=== PATIENT | male | born 1945 | race Caucasian/White ===

== ENCOUNTER 2020-07-10 02:01 | Inpatient (IN) | payer MEDICARE ==
[~2020-07-10] VITALS: Ht 172.7 cm; Wt 93.2 kg
[2020-07-10] MEDS ORDERED: ALLO100T PO (02:31)
[2020-07-10] MEDS ORDERED: TAMS0.4C97 PO (02:31)
[2020-07-10] MEDS ORDERED: LISI10TA16 PO (02:31)
[2020-07-10] MEDS ORDERED: INSU100V8 SQ (02:31)
[2020-07-10] MEDS ORDERED: FERR325T14 PO (02:31)
[2020-07-10] MEDS ORDERED: GABA-585 PO (02:31)
[2020-07-10] MEDS ORDERED: LACT10SO26 PO (02:31)
[2020-07-10] MEDS ORDERED: BUDE0.5A11 NEB (02:31)
[2020-07-10] MEDS ORDERED: FORM20VI IH (02:31)
[2020-07-10] MEDS ORDERED: GLIM4TAB8 PO (02:31)
[2020-07-10] MEDS ORDERED: PANT40TA6 PO (02:31)
[2020-07-10] MEDS ORDERED: SUCR1TAB PO (02:31)
[2020-07-10] MEDS ORDERED: OLAN5TAB9 PO (02:31)
[2020-07-10] MEDS ORDERED: FINA5TAB4 PO (02:31)
[2020-07-10] MEDS ORDERED: TRAM50TA PO (02:31)
[2020-07-10] MEDS ORDERED: POLY2500 PO (02:31)
[2020-07-10] MEDS ORDERED: CHOL10004 PO (02:31)
[2020-07-10] MEDS ORDERED: METO25TA4 PO (02:31)
[2020-07-10] MEDS ORDERED: BIFI4CAP PO (02:31)
--- NOTE | 2020-07-10 14:50 | NUR ---
Admission Note with Justification for Admission to [facility] Patient admitted to [facility] for protective oversight for emergency stabilization of acute psychiatric crisis. Pt admitted from: Hospital Mode of arrival: EMS Accompanied By: Secure Transport Precipitating behaviors that initiated intake and admission: agitation and aggression Description of failure of out patient attempts at stabilization in previous setting list behavior and medication trials: Ativan haldol Behaviors and assessment findings upon admission: Restless, impulsive, resistive Plan: Admit for protective oversight for adjustment and stabilization of medications, behaviors and mood. Intense treatment regimen including groups, medication adjustments, therapy, consistent regimen for ADL's, self care, and sleep hygiene. Daily monitoring by Inpatient staff, Psychiatry, and Medical Physician.
[2020-07-10] MEDS ORDERED: INSU100V5 SQ (15:47)
[2020-07-10] MEDS ORDERED: ONDA4TAB12 PO (15:47)
[2020-07-10] MEDS ORDERED: DEXT50DI3 IV (15:47)
[2020-07-10] MEDS ORDERED: ABH TOP (15:47)
[2020-07-10] MEDS ORDERED: GLUC1KIT IM (15:47)
[2020-07-10] MEDS ORDERED: HALO5AMP2 IJ (15:47)
[2020-07-10] MEDS ORDERED: DEXT38GE2 PO (15:47)
[2020-07-10 15:57] VITALS: BP 137/74
[2020-07-10] MEDS ORDERED: METHYL SALICYLATE/MENTHOL TOPICAL OINTMENT 57GM TUBE. TP PRN (18:30)
[2020-07-10] MEDS ORDERED: DEXTROSE 50% 25 GM / 50ML DISP.SYRIN. IV PRN (18:30)
[2020-07-10] MEDS ORDERED: ONDANSETRON ODT 4 MG TAB.RAPDIS PO PRN (18:30)
[2020-07-10] MEDS ORDERED: ABH TOP PRN (18:30)
[2020-07-10] MEDS ORDERED: ACETAMINOPHEN 325 MG TABLET PO PRN (18:30)
[2020-07-10] MEDS ORDERED: NON FORMULARY ITEM (Glucagon,Human Recombinant (Glucagon Emergency Kit) 1 MG) IM PRN (18:30)
[2020-07-10] MEDS ORDERED: DEXTROSE ORAL GEL 15 GM TUBE. PO PRN (18:30)
[2020-07-10] MEDS ORDERED: MAG HYDROX/AL HYDROX/SIMETH 30 ML ORAL.SUSP PO PRN (18:30)
[2020-07-10] MEDS ORDERED: MAGNESIUM HYDROXIDE 2,400 MG/30 ML ORAL.SUSP. PO PRN (18:30)
[2020-07-10] MEDS ORDERED: INSULIN LISPRO 300 UNITS/3 ML VIAL. SQ PRN (18:45)
[2020-07-10] MEDS: SUCRALFATE 1 GM TABLET. PO SCH (20:37)
[2020-07-10] MEDS: GABAPENTIN 100 MG CAPSULE. PO SCH (20:37)
[2020-07-10] MEDS: OLANZapine 5 MG TABLET PO SCH (20:37)
[2020-07-10] MEDS: traMADol 50 MG TABLET PO SCH (20:37)
[2020-07-10] MEDS: LACTOBACILLUS RHAMNOSUS GG 1 CAPSULE. PO SCH (20:37)
[2020-07-10] MEDS: ALLOPURINOL 100 MG TABLET. PO SCH (20:37)
[2020-07-10] MEDS: TAMSULOSIN 0.4 MG CAP.ER.24H. PO SCH (20:37)
[2020-07-10] MEDS: LACTULOSE 20 GM/30 ML SOLUTION. PO SCH (20:47)
[2020-07-10] MEDS: [UNRECOGNIZED DRUG - OTHER] TP PRN (20:47)
[2020-07-10] MEDS: INSULIN GLARGINE SYRINGE. SQ SCH (21:00)
--- NOTE | 2020-07-10 23:27 | NUR ---
Pt located on the floor in the quiet room. Pt restless and fidgety, rambling and could not answer assessment questions. Highly resistive to crushed medications. Pt unable to bear weight. Staff x4 assisted pt to bed. Pt has hartmann that was placed prior to admit d/t retention. PRN ABH cream administered to upper back and shoulders. Pt currently sleeping in bed.
--- NOTE | 2020-07-11 04:27 | EKG ---
[address] [address] Test Date: 2020-07-11 Test Time: 02:16:12 Pat Name: CARMEN REILLY Department: Room: [address] [place] [address] Gender: M Radiographic Technologist: : 1945 Requested By: DIA CASAS Order Number: [id number] Reading MD: Measurements Intervals [place] Rate: 112 P: 11 [place]: 150 QRS: 16 QRSD: 94 T: 26 QT: 372 QTc: 510 Interpretive Statements SINUS TACHYCARDIA VENTRICULAR PREMATURE COMPLEX(ES), BIGEMINY ST & T ABNORMALITY, CONSIDER RECENT INFERIOR MYOCARDIAL OR PERICARDIAL DAMAGE ABNORMAL ECG RI6.02 No previous ECG available for comparison
[2020-07-11 06:04] VITALS: BP 101/66
[2020-07-11] MEDS: SUCRALFATE 1 GM TABLET. PO SCH ×4 (07:30→20:02)
[2020-07-11] MEDS: PANTOPRAZOLE 40 MG TABLET. PO SCH ×2 (08:00→17:03)
[2020-07-11] MEDS: FERROUS SULFATE 325 MG TABLET. PO SCH ×2 (08:00→17:04)
[2020-07-11] MEDS: GLIMEPIRIDE 2 MG TABLET PO SCH ×2 (08:00→17:04)
[2020-07-11] MEDS: LISINOPRIL 10 MG TABLET PO SCH (09:00)
[2020-07-11] MEDS: POLYETHYLENE GLYCOL 3350 17 GM PACKET. PO SCH (09:00)
[2020-07-11] MEDS: FINASTERIDE 5 MG TABLET. PO SCH (09:00)
[2020-07-11] MEDS: LACTOBACILLUS RHAMNOSUS GG 1 CAPSULE. PO SCH ×2 (09:00→20:02)
[2020-07-11] MEDS: OLANZapine 5 MG TABLET PO SCH ×2 (09:00→20:02)
[2020-07-11] MEDS: METOPROLOL TART IMMED RELEASE 25 MG TABLET. PO SCH (09:00)
[2020-07-11] MEDS: ALLOPURINOL 100 MG TABLET. PO SCH ×2 (09:00→20:03)
[2020-07-11] MEDS: CHOLECALCIFEROL (VITAMIN D3) 1,000 UNIT TABLET PO SCH (09:00)
[2020-07-11] MEDS: LACTULOSE 20 GM/30 ML SOLUTION. PO SCH ×3 (09:00→20:01)
[2020-07-11] MEDS: traMADol 50 MG TABLET PO SCH ×2 (09:00→20:02)
[2020-07-11] MEDS: GABAPENTIN 100 MG CAPSULE. PO SCH ×3 (09:00→20:03)
[2020-07-11 10:26] LABS: BASO % 1 % (0-3); EOS # 0.5 x10^3/uL (0.0-0.7); EOS % 8 % (0-3); HEMATOCRIT 35.1 % (39.0-53.0); LYMPH # 1.6 x10^3/uL (1.0-4.8); LYMPH % 24 % (24-48); MEAN CORPUSCULAR HEMOGLOBIN 33 pg (25-35); MEAN CORPUSCULAR HGB CONC 34 g/dL (31-37); MEAN CORPUSCULAR VOLUME 97 fL (79-100); MONO # 0.5 x10^3/uL (0.0-1.1); MONO % 7 % (0-9); NEUT % 61 % (31-73); PLATELET COUNT 75 x10^3/uL (140-400); RED BLOOD COUNT 3.62 x10^6/uL (4.30-5.70); RED CELL DISTRIBUTION WIDTH 15.4 % (11.5-14.5); WHITE BLOOD COUNT 6.5 x10^3/uL (4.0-11.0)
[2020-07-11 10:33] LABS: ALBUMIN 2.5 g/dL (3.4-5.0); ALBUMIN/GLOBULIN RATIO 0.6 (1.0-1.7); CALCIUM 9.1 mg/dL (8.5-10.1); CREATININE 1.4 mg/dL (0.7-1.3); GFR 49.3; MAGNESIUM 1.7 mg/dL (1.8-2.4); POTASSIUM 4.1 mmol/L (3.5-5.1); TOTAL BILIRUBIN 0.9 mg/dL (0.2-1.0); TOTAL PROTEIN 6.8 g/dL (6.4-8.2)
[2020-07-11 15:30] VITALS: BP 131/54
--- NOTE | 2020-07-11 18:02 | NUR ---
Patient med compliant and cooperative with cares, patient very disorganized and confused, patient alert x1 to self patient hartmann is intact and draining appropriately at this time, patient is able to be redirected. Patient was seen by speech who changed orders for dysphagia II honey thicken liquids and pills given one at a time or crushed in purreed or honey thicken. Patient slept during breakfast and was very sedated from the previous night due to prn's. I was not able to give patient any medications for am med pass and patient did not eat breakfast. For lunch he was very alert and ate his lunch and dinner. called several times wanting to know how he was doing gave the password and update was given. Waiting on patient labs, discussed patient prn insulin s/s with Dr Catherine no changes made. No new orders from Dr Lovett. Will continue to monitor patient.
[2020-07-11] MEDS: TAMSULOSIN 0.4 MG CAP.ER.24H. PO SCH (20:03)
[2020-07-11] MEDS: INSULIN GLARGINE SYRINGE. SQ SCH (20:04)
[2020-07-11 21:33] LABS: THYROID STIM HORMONE (TSH) 0.627 uIU/mL (0.358-3.740)
--- NOTE | 2020-07-11 22:40 | NUR ---
Pt located in the dayroom this evening. Pt more alert. Oriented to self, and hospital. Pt restless in wheelchair, setting off chair alarm numerous times. Compliant with crushed medications. No agitation or aggression.
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
[2020-07-12 02:11] LABS: HEMOGLOBIN A1C 6.9 % (4.8-5.6)
[2020-07-12 05:41] VITALS: BP 108/62
[2020-07-12 07:13] LABS: THYROXINE 4.7 ug/dL (4.5-12.0)
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
[2020-07-12] MEDS: POLYETHYLENE GLYCOL 3350 17 GM PACKET. PO SCH (08:52)
[2020-07-12] MEDS: LACTULOSE 20 GM/30 ML SOLUTION. PO SCH ×3 (08:52→19:56)
[2020-07-12] MEDS: SUCRALFATE 1 GM TABLET. PO SCH ×4 (08:52→19:56)
[2020-07-12] MEDS: FINASTERIDE 5 MG TABLET. PO SCH (08:52)
[2020-07-12] MEDS: GLIMEPIRIDE 2 MG TABLET PO SCH ×2 (08:53→16:30)
[2020-07-12] MEDS: LACTOBACILLUS RHAMNOSUS GG 1 CAPSULE. PO SCH ×2 (08:53→19:56)
[2020-07-12] MEDS: FERROUS SULFATE 325 MG TABLET. PO SCH ×2 (08:53→16:30)
[2020-07-12] MEDS: GABAPENTIN 100 MG CAPSULE. PO SCH ×3 (08:53→19:56)
[2020-07-12] MEDS: PANTOPRAZOLE 40 MG TABLET. PO SCH ×2 (08:53→16:30)
[2020-07-12] MEDS: ALLOPURINOL 100 MG TABLET. PO SCH ×2 (08:53→19:56)
[2020-07-12] MEDS: CHOLECALCIFEROL (VITAMIN D3) 1,000 UNIT TABLET PO SCH (08:53)
[2020-07-12] MEDS: METOPROLOL TART IMMED RELEASE 25 MG TABLET. PO SCH (08:53)
[2020-07-12] MEDS: OLANZapine 5 MG TABLET PO SCH ×2 (08:53→19:56)
[2020-07-12] MEDS: LISINOPRIL 10 MG TABLET PO SCH (08:54)
[2020-07-12] MEDS: traMADol 50 MG TABLET PO SCH ×2 (08:54→19:56)
--- NOTE | 2020-07-12 13:06 | NUR ---
SW attempted to contact pt and was not able to leave a message. SW will try back at a later time.
--- NOTE | 2020-07-12 13:40 | NUR ---
WEEKLY ACTIVITY THERAPY NOTE Date of Admission: 07/10/20 Date of AT Assessment: TBD Precipitating behaviors that initiated intake and admission: agitation and aggression Goal aimed: TBD Initial Goal: TBD Weekly progress towards goal: NA Group participation level:NA Weekly highlights: arrived on [facility] Behaviors observed: Plan: meet/assess pt Beneficial adaptations:
--- NOTE | 2020-07-12 14:08 | NUR ---
PATIENT IS AWAKE UP IN A W/C UPON ASSESSMENT, CONFUSED, A/O TO SELF ONLY, COOPERATIVE WITH ASSESSMENT, COMPLIANT WITH MEDS CRUSHED IN PUDDING. PATIENT IS CURRENTLY IN A BED NAPPING, NO AGITATION NOTED AT THIS TIME.
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
[2020-07-12 15:45] VITALS: BP 117/68
--- NOTE | 2020-07-12 16:54 | TX PLAN ---
Interdisciplinary Tx Plan Admission Information July 10, 2020 at 14:50 Legal Status (on Admission): Voluntary DPOA/Guardian Name: Tiffanie Joyner Contact Other Contact Name: [facility] Other Contact Verified Code Status: Other (Full Code/Do Not Intubate) Allergies: Coded Allergies: selegiline (Verified Allergy, Intermediate, 07/10/20) HALLUCINATIONS Diagnoses Primary Diagnosis: Major Neurocognitive D/O with BD Reasons for Admission: Aggressive, Agitated, Combative, Confusion/Disoriented, Poor impulse control Problem in Patient's Words: This disease...it's just not him Additional Admission Comments: According to the intake, pt is combative, hitting , agitated, irritable, psychotic, cursing, punching at the wall, kicking at staff, restless, agitated Problems Active Problems: No active behaviors noted upon admission Inactive Problems: No behaviors noted Medication compliant Pt Strengths/Limitations Ability for [place]: Poor Cognitive Functioning/Ability: Fair Communication Skills/Ability: Fair Financial Resources: Fair Insight/Judgement: Poor Intellectual Ability: Fair Physical Health: Poor Social Skills: Fair Stability in Family: Good Stability in School/Work: Poor Verbal Skills: Fair Discharge Criteria Discharge Criteria: No need for close observ., Adequate arrangements @DC, Improved behavior, Improved mood/thought Preliminary Discharge Plan Preliminary DC Plan: Retirement Special Precautions Fall Risk: Moderate Other Precautions (specify): use of wheelchair due to unsteadiness and work with PT/OT Initial D/C Plan Will discharge to [facility] in [place], [place] once stabilized Identified Discharge Needs: referral for continued psychiatric services Currently Utilized Resources Currently Utilized Resources/P: Primary Care Physician Referrals Community Resources: Psychiatry services Identified Problems/Hx/Goals Objectives/Short-Term Goals Short Term Goals: Dec. Aggression, Dec. Outbursts, Improved Social Skills, Medication Stabilization, Monitor Med Effects, Promote Coping Skill Short Term Goals in Patient's: NA Interventions/Frequency Staff Interventions/Frequency&: Psychiatrist to assess pt at least 3x per week for medication mgmt. Social Work to assess pt at least 2x per week to identify barriers to care and final discharge plans. Nursing to assess medication effects, behavior modifications and completion of 15 minute checks. Encourage participation in group activities (if applicable) or 1:1 engagement based off Activity Dept goals. 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 Pt also tried his hand at having his own [employer] in which he was a 3x award-winner through the local [employer] for his work. Education: Pt did graduate 12th grade Community Follow-up Primary Care Physician Community Provider/Family Inpu: It's the disease making him this way. He would never hurt anyone and as of late he continues to be aggressive and it's just not him. Treatment Plan Explained Patient/Examination Scorer had this treatment plan explained to him/her as indicated by the signature below and has been given the opportunity to ask questions and make suggestions: Date: Patient/Examination Scorer Signature: Patient/Examination Scorer Decline: No (Pt is very active in pt care.) TIARA RITCHIE July 12, 2020 16:54
[2020-07-12] MEDS: TAMSULOSIN 0.4 MG CAP.ER.24H. PO SCH (19:56)
[2020-07-12] MEDS: INSULIN GLARGINE SYRINGE. SQ SCH (20:56)
--- NOTE | 2020-07-12 22:05 | PDOC ---
Exam Note: Harshil Note: Please also refer to the separate dictated note~for this date of service dictated separately.~Patient seen individually. Discussed the patient with Nursing staff reviewed the chart.~Reviewed interim history and current functioning. Reviewed vital signs,~Labs/ Radiology~and current medications noted below. Continue current treatment with the changes noted in the dictated addendum note Assessment: Vital Signs/I&O: Vital Signs Date Time Temp Pulse Resp B/P (MAP) Pulse Ox O2 Delivery O2 Flow Rate FiO2 07/12/20 20:38 97 07/12/20 15:45 98.6 80 18 117/68 (84) 07/12/20 09:10 Room Air I & O 07/11/20 07/11/20 07/12/20 15:00 23:00 07:00 Intake Total 480 ml 360 ml Output Total 250 ml Balance 480 ml 110 ml Labs: Laboratory Tests Test 07/12/20 06:47 07/12/20 07:48 07/12/20 11:54 07/12/20 16:43 Ammonia 89 mcmol/L (11-34) H Glucose (Fingerstick) 95 mg/dL (70-99) 245 mg/dL (70-99) H 247 mg/dL (70-99) H Test 07/12/20 19:14 Glucose (Fingerstick) 296 mg/dL (70-99) H Current Medications: Meds: Laboratory Tests Test 07/12/20 06:47 07/12/20 07:48 07/12/20 11:54 07/12/20 16:43 Ammonia 89 mcmol/L Glucose (Fingerstick) 95 mg/dL 245 mg/dL 247 mg/dL Test 07/12/20 19:14 Glucose (Fingerstick) 296 mg/dL Current Medications Medications (Trade) Dose Ordered Sig/Michell Route PRN Reason Start Time Stop Time Status Last Admin Dose Admin Non-Formulary Medication (Non Formulary Item (Ehhoz-Yakrsq-Zpzzd)) 1 ea PRN Q6HRS PRN TP AGITATION 07/10/20 17:15 07/10/20 20:47 Acetaminophen (Tylenol) 650 mg PRN Q6HRS PRN PO MILD PAIN / TEMP > 100.3'F 07/10/20 18:30 Multi-Ingredient Ointment (Analgesic [place]) 1 loyd PRN QID PRN TP MUSCLE PAIN 07/10/20 18:30 Al Hydroxide/Mg Hydroxide (Mylanta Plus Xs) 15 ml PRN AFTMEALHC PRN PO DYSPEPSIA 07/10/20 18:30 Magnesium Hydroxide (Milk Of Magnesia) 2,400 mg PRN QHS PRN PO CONSTIPATION 07/10/20 18:30 Allopurinol (Zyloprim) 100 mg BID PO 07/10/20 21:00 07/12/20 19:56 Vitamin D (Vitamin D3) 1,000 unit DAILY PO 07/11/20 09:00 07/12/20 08:53 Glucose (Insta-Glucose) 15 gm PRN Q15MIN PRN PO HYPOGLYCEMIA 07/10/20 18:30 Dextrose (Dextrose 50%-Water Syringe) 25 gm PRN Q15MIN PRN IV HYPOGLYCEMIA 07/10/20 18:30 Ferrous Sulfate (Feosol) 325 mg BIDWMEALS PO 07/11/20 08:00 07/12/20 16:30 Finasteride (Proscar) 5 mg DAILY PO 07/11/20 09:00 07/12/20 08:52 Gabapentin (Neurontin) 100 mg TID PO 07/10/20 21:00 07/12/20 19:56 Insulin Glargine (Lantus Syringe) 30 unit HS SQ 07/10/20 21:00 07/12/20 20:56 Insulin Human Lispro (HumaLOG) 5 units TIDWMEALS PRN SQ FSBS GREATER THAN 400 07/10/20 18:45 Lisinopril (Prinivil) 10 mg DAILY PO 07/11/20 09:00 07/12/20 08:54 Metoprolol Tartrate (Lopressor) 25 mg DAILY PO 07/11/20 09:00 07/12/20 08:53 Olanzapine (ZyPREXA) 5 mg BID PO 07/10/20 21:00 07/12/20 19:56 Ondansetron HCl (Zofran Odt) 4 mg PRN Q8HRS PRN PO NAUSEA 07/10/20 18:30 Pantoprazole Sodium (Protonix) 40 mg BIDWMEALS PO 07/11/20 08:00 07/12/20 16:30 Sucralfate (Carafate) 1 gm QIDACHS PO 07/10/20 21:00 07/12/20 19:56 Tamsulosin HCl (Flomax) 0.4 mg HS PO 07/10/20 21:00 07/12/20 19:56 Tramadol HCl (Ultram) 50 mg BID PO 07/10/20 21:00 07/12/20 19:56 Lactobacillus Rhamnosus (Culturelle) 1 cap BID PO 07/10/20 21:00 07/12/20 19:56 Glimepiride (Amaryl) 4 mg BIDWMEALS PO 07/11/20 08:00 07/12/20 16:30 Non-Formulary Medication (Glucagon,Human Recombinant (Glucagon Emergency Kit)) 1 mg PRN PRN IM HYPOGLYCEMIA 07/10/20 18:30 UNV Lactulose (Lactulose) 20 gm TID PO 07/10/20 21:00 07/12/20 19:56 Polyethylene Glycol (miraLAX) 17 gm DAILY PO 07/11/20 09:00 07/12/20 08:52 Non-Formulary Medication ([Abh Topical Cream] ) 0.5 ml Q6HRS PRN TOP AGITATION 07/10/20 18:30 07/11/20 07:18 DC I have reviewed the current psychotropics carefully including drug interactions. Risk benefit ratio favors no change other than as noted in my dictated progress note. Diagnosis: Problems: (1) Major neurocognitive disorder (2) Dementia in Alzheimer's disease with delusions (3) Dementia in Alzheimer's disease with depression (4) Dementia of the Alzheimer's type with early onset with behavioral disturbance (5) Dementia, vascular, with delusions (6) Dementia, vascular, with depression (7) Impulse control disorder, unspecified (8) Anxiety disorder, unspecified ASIM SPANGLER MD July 12, 2020 22:05
[2020-07-12] MEDS: [UNRECOGNIZED DRUG - OTHER] TP PRN (22:22)
--- NOTE | 2020-07-12 23:10 | NUR ---
Pt in dayroom this evening. Restless in wheelchair setting off alarm repeatedly. Compliant with crushed medications. A/O to name, , [facility]. Pt highly restless once placed in bed, disrobing and attempting to climb out of bed. PRN ABH cream administered. Pt currently still awake in bed and restless. Addendum: 07/13/20 at 0431 by JES MOSES RN PRN cream not effective. Pt continued to attempt to climb out of bed, setting off bed alarm and keeping roommate awake. Pt taken to the quiet room and placed on mats for safety. Pt restless on the floor all night, dozing on/off for approximately an hour.
[2020-07-13 05:47] VITALS: BP 168/66
[2020-07-13] MEDS: POLYETHYLENE GLYCOL 3350 17 GM PACKET. PO SCH (08:22)
[2020-07-13] MEDS: FERROUS SULFATE 325 MG TABLET. PO SCH ×2 (08:23→18:09)
[2020-07-13] MEDS: PANTOPRAZOLE 40 MG TABLET. PO SCH ×2 (08:23→18:10)
[2020-07-13] MEDS: LACTOBACILLUS RHAMNOSUS GG 1 CAPSULE. PO SCH ×2 (08:23→19:50)
[2020-07-13] MEDS: LACTULOSE 20 GM/30 ML SOLUTION. PO SCH ×3 (08:23→19:50)
[2020-07-13] MEDS: CHOLECALCIFEROL (VITAMIN D3) 1,000 UNIT TABLET PO SCH (08:23)
[2020-07-13] MEDS: GLIMEPIRIDE 2 MG TABLET PO SCH ×2 (08:24→18:09)
[2020-07-13] MEDS: SUCRALFATE 1 GM TABLET. PO SCH ×4 (08:24→19:50)
[2020-07-13] MEDS: GABAPENTIN 100 MG CAPSULE. PO SCH ×3 (08:24→19:50)
[2020-07-13] MEDS: ALLOPURINOL 100 MG TABLET. PO SCH ×2 (08:24→19:50)
[2020-07-13] MEDS: OLANZapine 5 MG TABLET PO SCH ×2 (08:24→19:50)
[2020-07-13] MEDS: FINASTERIDE 5 MG TABLET. PO SCH (08:24)
[2020-07-13] MEDS: METOPROLOL TART IMMED RELEASE 25 MG TABLET. PO SCH (08:25)
[2020-07-13] MEDS: traMADol 50 MG TABLET PO SCH ×2 (08:25→19:51)
[2020-07-13] MEDS: LISINOPRIL 10 MG TABLET PO SCH (08:25)
--- NOTE | 2020-07-13 14:20 | NUR ---
ACTIVITY THERAPY ASSESSMENT completed based on notes and observation. Per notes pt has been restless and resistive with staff. Pt is unable to answer questions and talks in a rambled speech. Pt does appear to be more oriented some days than others. Pt enjoyed woodworking and landscaping. Pt lives at home with his and is reported to be resistive with her. Pt hit while at home. Initial goal aimed to increase stress management and relaxation skills. Pt will participate in at least three individual or group Activity Therapy sessions before discharge.
[2020-07-13 15:46] VITALS: BP 109/62
--- NOTE | 2020-07-13 17:04 | NUR ---
Pt was very disorganized with his conversation as well as body language multiple attempts to get out of wheel chair at breakfast picking through his breakfast after several failed attempts at verbally redirecting patient a staff member sat with patient during breakfast for more supervision. Patient took all of his meds without difficulty cooperative with cares. 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 Patient did not receive any of his noon meds vitals stable wnl of baseline. Alert to self, patient in dining room for dinner, new med orders from Dr Padilla: Remeron 7.5mg PO Qhs depakote 125mg PO BID 0900 and 1700 cbc cmp vpa level in 3 days. called twice to check on patient password given gave update on patient status. Will continue to monitor patient.
[2020-07-13] MEDS: TAMSULOSIN 0.4 MG CAP.ER.24H. PO SCH (19:50)
[2020-07-13] MEDS: INSULIN GLARGINE SYRINGE. SQ SCH (21:00)
[2020-07-13] MEDS ORDERED: MIRTAZAPINE 7.5 MG TABLET. PO SCH (21:00)
[2020-07-13] MEDS: [UNRECOGNIZED DRUG - OTHER] TP PRN (21:13)
--- NOTE | 2020-07-13 21:47 | PDOC ---
Exam Note: Harshil Note: Please also refer to the separate dictated note~for this date of service dictated separately.~Patient seen individually. Discussed the patient with Nursing staff reviewed the chart.~Reviewed interim history and current functioning. Reviewed vital signs,~Labs/ Radiology~and current medications noted below. Continue current treatment with the changes noted in the dictated addendum note Assessment: Vital Signs/I&O: Vital Signs Date Time Temp Pulse Resp B/P (MAP) Pulse Ox O2 Delivery O2 Flow Rate FiO2 07/13/20 20:29 95 07/13/20 15:46 97.9 85 20 109/62 (78) 07/12/20 09:10 Room Air I & O 07/12/20 07/12/20 07/13/20 14:59 22:59 06:59 Intake Total 840 ml 480 ml Balance 840 ml 480 ml Labs: Laboratory Tests Test 07/13/20 07:13 07/13/20 07:33 07/13/20 11:39 07/13/20 17:07 Glucose (Fingerstick) 286 mg/dL (70-99) H 100 mg/dL (70-99) H 300 mg/dL (70-99) H 170 mg/dL (70-99) H Test 07/13/20 18:59 Glucose (Fingerstick) 145 mg/dL (70-99) H Current Medications: Meds: Laboratory Tests Test 07/13/20 07:13 07/13/20 07:33 07/13/20 11:39 07/13/20 17:07 Glucose (Fingerstick) 286 mg/dL 100 mg/dL 300 mg/dL 170 mg/dL Test 07/13/20 18:59 Glucose (Fingerstick) 145 mg/dL Current Medications Medications (Trade) Dose Ordered Sig/Michell Route PRN Reason Start Time Stop Time Status Last Admin Dose Admin Non-Formulary Medication (Non Formulary Item (Rkhxc-Dnyvlw-Dwsmx)) 1 ea PRN Q6HRS PRN TP AGITATION 07/10/20 17:15 07/13/20 21:13 Acetaminophen (Tylenol) 650 mg PRN Q6HRS PRN PO MILD PAIN / TEMP > 100.3'F 07/10/20 18:30 Multi-Ingredient Ointment (Analgesic [place]) 1 loyd PRN QID PRN TP MUSCLE PAIN 07/10/20 18:30 Al Hydroxide/Mg Hydroxide (Mylanta Plus Xs) 15 ml PRN AFTMEALHC PRN PO DYSPEPSIA 07/10/20 18:30 Magnesium Hydroxide (Milk Of Magnesia) 2,400 mg PRN QHS PRN PO CONSTIPATION 07/10/20 18:30 Allopurinol (Zyloprim) 100 mg BID PO 07/10/20 21:00 07/13/20 19:50 Vitamin D (Vitamin D3) 1,000 unit DAILY PO 07/11/20 09:00 07/13/20 08:23 Glucose (Insta-Glucose) 15 gm PRN Q15MIN PRN PO HYPOGLYCEMIA 07/10/20 18:30 Dextrose (Dextrose 50%-Water Syringe) 25 gm PRN Q15MIN PRN IV HYPOGLYCEMIA 07/10/20 18:30 Ferrous Sulfate (Feosol) 325 mg BIDWMEALS PO 07/11/20 08:00 07/13/20 18:09 Finasteride (Proscar) 5 mg DAILY PO 07/11/20 09:00 07/13/20 08:24 Gabapentin (Neurontin) 100 mg TID PO 07/10/20 21:00 07/13/20 19:50 Insulin Glargine (Lantus Syringe) 30 unit HS SQ 07/10/20 21:00 07/13/20 21:00 Insulin Human Lispro (HumaLOG) 5 units TIDWMEALS PRN SQ FSBS GREATER THAN 400 07/10/20 18:45 Lisinopril (Prinivil) 10 mg DAILY PO 07/11/20 09:00 07/13/20 08:25 Metoprolol Tartrate (Lopressor) 25 mg DAILY PO 07/11/20 09:00 07/13/20 08:25 Olanzapine (ZyPREXA) 5 mg BID PO 07/10/20 21:00 07/13/20 19:50 Ondansetron HCl (Zofran Odt) 4 mg PRN Q8HRS PRN PO NAUSEA 07/10/20 18:30 Pantoprazole Sodium (Protonix) 40 mg BIDWMEALS PO 07/11/20 08:00 07/13/20 18:10 Sucralfate (Carafate) 1 gm QIDACHS PO 07/10/20 21:00 07/13/20 19:50 Tamsulosin HCl (Flomax) 0.4 mg HS PO 07/10/20 21:00 07/13/20 19:50 Tramadol HCl (Ultram) 50 mg BID PO 07/10/20 21:00 07/13/20 19:51 Lactobacillus Rhamnosus (Culturelle) 1 cap BID PO 07/10/20 21:00 07/13/20 19:50 Glimepiride (Amaryl) 4 mg BIDWMEALS PO 07/11/20 08:00 07/13/20 18:09 Non-Formulary Medication (Glucagon,Human Recombinant (Glucagon Emergency Kit)) 1 mg PRN PRN IM HYPOGLYCEMIA 07/10/20 18:30 UNV Lactulose (Lactulose) 20 gm TID PO 07/10/20 21:00 07/13/20 19:50 Polyethylene Glycol (miraLAX) 17 gm DAILY PO 07/11/20 09:00 07/13/20 08:22 Non-Formulary Medication ([Abh Topical Cream] ) 0.5 ml Q6HRS PRN TOP AGITATION 07/10/20 18:30 07/11/20 07:18 DC Mirtazapine (Remeron) 7.5 mg QHS PO 07/13/20 21:00 07/13/20 19:50 Divalproex Sodium (Depakote Sprinkles) 125 mg BID@0900,1700 PO 07/14/20 09:00 Trazodone HCl (Desyrel) 50 mg PRN QHS PRN PO INSOMNIA 07/13/20 21:45 UNV Current Medications Medications (Trade) Dose Ordered Sig/Michell Route PRN Reason Start Time Stop Time Status Last Admin Dose Admin Mirtazapine (Remeron) 7.5 mg QHS PO 07/13/20 21:00 07/13/20 19:50 I have reviewed the current psychotropics carefully including drug interactions. Risk benefit ratio favors no change other than as noted in my dictated progress note. Diagnosis: Problems: (1) Impulse control disorder, unspecified (2) Anxiety disorder, unspecified (3) Dementia, vascular, with depression (4) Dementia, vascular, with delusions (5) Dementia in Alzheimer's disease with depression (6) Dementia in Alzheimer's disease with delusions (7) Dementia of the Alzheimer's type with early onset with behavioral disturbance (8) Major neurocognitive disorder ASIM SPANGLER MD July 13, 2020 21:47
[2020-07-13] MEDS: traZODone 50 MG TABLET. PO PRN (21:56)
--- NOTE | 2020-07-13 23:11 | NUR ---
Pt located in the dayroom this evening. Pt extremely restless in his wheelchair repeatedly setting off chair alarm. Staff 1:1 with pt throughout the evening for pt safety. Pt compliant with crushed medications. Pt continued to be restless. At one point, pt grabbed staff member's arm and stated "shut the fuck up." Dr. Vignesh miller. PRN ABH cream and Trazodone administered. Pt currently awake in the quiet room rolling around on the mats. Will continue to monitor.
[2020-07-14 05:35] VITALS: BP 139/83
[2020-07-14] MEDS: LACTOBACILLUS RHAMNOSUS GG 1 CAPSULE. PO SCH ×2 (08:34→20:54)
[2020-07-14] MEDS: GLIMEPIRIDE 2 MG TABLET PO SCH ×2 (08:34→17:00)
--- NOTE | 2020-07-14 08:34 | PDOC ---
Exam Note: Harshil Note: This note is a late entry for 07/12/2020 covers elements not covered in my initial note. Subjective: The patient was reviewed in the morning of 07/12/2020 for a treatment team meeting with Danyell Cabral, Yael Sommers and Nuria (social services aide), Amy, activity therapy and Eden GLOVER, discussed and reviewed the chart. The patient slept 5-1/2 hours previous night. The patient has not been agitated. He remains in wheelchair, somewhat restless, grabbing at things, no p.r.n.s. have been given. Previously he was living in [place] at home with his , unable to return there due to his marked dementia. Review of Systems: Ambulation impaired in wheelchair. No CV, , pulmonary, eye, ENT system symptoms on review. Reliability poor. Mental Status Exam: The patient is oriented to himself. Insight and judgment, recent and remote memory, attention and concentration, fund of knowledge is poor consistent with his diagnoses. Laboratory Data: Reviewed. Impression: Major neurocognitive disorder Alzheimer vascular with delusion, depression, behavioral disturbance. Anxiety disorder unspecified. Impulse control disorder unspecified. Plan: I have carefully reviewed the patients current psychotropics and reviewed information with Dr. Barbosa who had covered for me for the past 2 weeks. Continue psychotropics from initial note. Make further adjustments as clinically indicated. Continue Zyprexa 5 mg b.i.d., Ativan, Benadryl, Haldol gel p.r.n. Consider adding SSRI agent for his mood and anxiety symptoms. We may consider Depakote Sprinkle as a mood stabilizer. Make further decisions post-baseline assessment. Assessment: Vital Signs/I&O: Vital Signs Date Time Temp Pulse Resp B/P (MAP) Pulse Ox O2 Delivery O2 Flow Rate FiO2 07/14/20 05:35 96.7 73 20 139/83 (101) 96 Room Air I & O 07/13/20 07/13/20 07/14/20 15:00 23:00 07:00 Intake Total 360 ml 360 ml Output Total 500 ml 500 ml Balance 360 ml -140 ml -500 ml Labs: Laboratory Tests Test 07/13/20 11:39 07/13/20 17:07 07/13/20 18:59 07/14/20 07:59 Glucose (Fingerstick) 300 mg/dL (70-99) H 170 mg/dL (70-99) H 145 mg/dL (70-99) H 140 mg/dL (70-99) H Current Medications: Meds: Laboratory Tests Test 07/13/20 11:39 07/13/20 17:07 07/13/20 18:59 07/14/20 07:59 Glucose (Fingerstick) 300 mg/dL 170 mg/dL 145 mg/dL 140 mg/dL Current Medications Medications (Trade) Dose Ordered Sig/Michell Route PRN Reason Start Time Stop Time Status Last Admin Dose Admin Non-Formulary Medication (Non Formulary Item (Sgmxc-Tgevan-Bpsra)) 1 ea PRN Q6HRS PRN TP AGITATION 07/10/20 17:15 07/13/20 21:13 Acetaminophen (Tylenol) 650 mg PRN Q6HRS PRN PO MILD PAIN / TEMP > 100.3'F 07/10/20 18:30 Multi-Ingredient Ointment (Analgesic [place]) 1 loyd PRN QID PRN TP MUSCLE PAIN 07/10/20 18:30 Al Hydroxide/Mg Hydroxide (Mylanta Plus Xs) 15 ml PRN AFTMEALHC PRN PO DYSPEPSIA 07/10/20 18:30 Magnesium Hydroxide (Milk Of Magnesia) 2,400 mg PRN QHS PRN PO CONSTIPATION 07/10/20 18:30 Allopurinol (Zyloprim) 100 mg BID PO 07/10/20 21:00 07/13/20 19:50 Vitamin D (Vitamin D3) 1,000 unit DAILY PO 07/11/20 09:00 07/13/20 08:23 Glucose (Insta-Glucose) 15 gm PRN Q15MIN PRN PO HYPOGLYCEMIA 07/10/20 18:30 Dextrose (Dextrose 50%-Water Syringe) 25 gm PRN Q15MIN PRN IV HYPOGLYCEMIA 07/10/20 18:30 Ferrous Sulfate (Feosol) 325 mg BIDWMEALS PO 07/11/20 08:00 07/13/20 18:09 Finasteride (Proscar) 5 mg DAILY PO 07/11/20 09:00 07/13/20 08:24 Gabapentin (Neurontin) 100 mg TID PO 07/10/20 21:00 07/13/20 19:50 Insulin Glargine (Lantus Syringe) 30 unit HS SQ 07/10/20 21:00 07/13/20 21:00 Insulin Human Lispro (HumaLOG) 5 units TIDWMEALS PRN SQ FSBS GREATER THAN 400 07/10/20 18:45 Lisinopril (Prinivil) 10 mg DAILY PO 07/11/20 09:00 07/13/20 08:25 Metoprolol Tartrate (Lopressor) 25 mg DAILY PO 07/11/20 09:00 07/13/20 08:25 Olanzapine (ZyPREXA) 5 mg BID PO 07/10/20 21:00 07/13/20 19:50 Ondansetron HCl (Zofran Odt) 4 mg PRN Q8HRS PRN PO NAUSEA 07/10/20 18:30 Pantoprazole Sodium (Protonix) 40 mg BIDWMEALS PO 07/11/20 08:00 07/13/20 18:10 Sucralfate (Carafate) 1 gm QIDACHS PO 07/10/20 21:00 07/13/20 19:50 Tamsulosin HCl (Flomax) 0.4 mg HS PO 07/10/20 21:00 07/13/20 19:50 Tramadol HCl (Ultram) 50 mg BID PO 07/10/20 21:00 07/13/20 19:51 Lactobacillus Rhamnosus (Culturelle) 1 cap BID PO 07/10/20 21:00 07/13/20 19:50 Glimepiride (Amaryl) 4 mg BIDWMEALS PO 07/11/20 08:00 07/13/20 18:09 Non-Formulary Medication (Glucagon,Human Recombinant (Glucagon Emergency Kit)) 1 mg PRN PRN IM HYPOGLYCEMIA 07/10/20 18:30 UNV Lactulose (Lactulose) 20 gm TID PO 07/10/20 21:00 07/13/20 19:50 Polyethylene Glycol (miraLAX) 17 gm DAILY PO 07/11/20 09:00 07/13/20 08:22 Non-Formulary Medication ([Abh Topical Cream] ) 0.5 ml Q6HRS PRN TOP AGITATION 07/10/20 18:30 07/11/20 07:18 DC Mirtazapine (Remeron) 7.5 mg QHS PO 07/13/20 21:00 07/13/20 19:50 Divalproex Sodium (Depakote Sprinkles) 125 mg BID@0900,1700 PO 07/14/20 09:00 Trazodone HCl (Desyrel) 50 mg PRN QHS PRN PO INSOMNIA 07/13/20 21:45 07/13/20 21:56 Current Medications Medications (Trade) Dose Ordered Sig/Michell Route PRN Reason Start Time Stop Time Status Last Admin Dose Admin Mirtazapine (Remeron) 7.5 mg QHS PO 07/13/20 21:00 07/13/20 19:50 Trazodone HCl (Desyrel) 50 mg PRN QHS PRN PO INSOMNIA 07/13/20 21:45 07/13/20 21:56 I have reviewed the current psychotropics carefully including drug interactions. Risk benefit ratio favors no change other than as noted in my dictated progress note. Diagnosis: Problems: (1) Impulse control disorder, unspecified (2) Anxiety disorder, unspecified (3) Dementia, vascular, with depression (4) Dementia, vascular, with delusions (5) Dementia in Alzheimer's disease with depression (6) Dementia in Alzheimer's disease with delusions (7) Dementia of the Alzheimer's type with early onset with behavioral disturbance (8) Major neurocognitive disorder ASIM SPANGLER MD July 14, 2020 08:34
[2020-07-14] MEDS: FINASTERIDE 5 MG TABLET. PO SCH (08:35)
[2020-07-14] MEDS: OLANZapine 5 MG TABLET PO SCH ×2 (08:35→20:55)
[2020-07-14] MEDS: LISINOPRIL 10 MG TABLET PO SCH (08:35)
[2020-07-14] MEDS: ALLOPURINOL 100 MG TABLET. PO SCH ×2 (08:35→20:55)
[2020-07-14] MEDS: CHOLECALCIFEROL (VITAMIN D3) 1,000 UNIT TABLET PO SCH (08:35)
[2020-07-14] MEDS: SUCRALFATE 1 GM TABLET. PO SCH ×4 (08:35→20:56)
[2020-07-14] MEDS: METOPROLOL TART IMMED RELEASE 25 MG TABLET. PO SCH (08:35)
[2020-07-14] MEDS: GABAPENTIN 100 MG CAPSULE. PO SCH ×3 (08:35→20:55)
[2020-07-14] MEDS: DIVALPROEX 125 MG CAP.SPRINK PO SCH ×2 (08:36→17:00)
[2020-07-14] MEDS: PANTOPRAZOLE 40 MG TABLET. PO SCH ×2 (08:36→17:00)
[2020-07-14] MEDS: FERROUS SULFATE 325 MG TABLET. PO SCH ×2 (08:36→17:00)
[2020-07-14] MEDS: traMADol 50 MG TABLET PO SCH ×2 (08:37→20:56)
[2020-07-14] MEDS: LACTULOSE 20 GM/30 ML SOLUTION. PO SCH ×3 (08:38→20:55)
[2020-07-14] MEDS: POLYETHYLENE GLYCOL 3350 17 GM PACKET. PO SCH (08:40)
--- NOTE | 2020-07-14 08:58 | PDOC ---
Exam Note: Harshil Note: This note is a late entry for 07/13/2020 covers elements not covered in my initial note. Subjective: The patient was seen individually in the evening of 07/13/2020 with Robert GLOVER, discussed and reviewed the chart. The patient slept 1-1/2 hours previous night. The patient has been fidgety, not combative, crawling on the floor at times. He slept poorly previous night and we will start Remeron 7.5 mg h.s. He remains anxious, restless. We will also add Depakote Sprinkle 125 mg 9 a.m. and 5 p.m. Check CBC, CMP, valproic acid level in 3 days. Adjust to reach therapeutic level. Review of Systems: Ambulation impaired in wheelchair. No CV, , pulmonary, eye, ENT system symptoms on review. Mental Status Exam: The patient is oriented to himself. Insight and judgment, recent and remote memory, attention and concentration, fund of knowledge is poor consistent with his diagnoses. Laboratory Data: Reviewed. Impression: Major neurocognitive disorder Alzheimer vascular with delusion, depression, behavioral disturbance. Anxiety disorder unspecified. Impulse control disorder unspecified. Plan: We will start Remeron 7.5 mg h.s. He remains anxious, restless. We will also add Depakote Sprinkle 125 mg 9 a.m. and 5 p.m. Check CBC, CMP, valproic acid level in 3 days. Adjust to reach therapeutic level. Assessment: Vital Signs/I&O: Vital Signs Date Time Temp Pulse Resp B/P (MAP) Pulse Ox O2 Delivery O2 Flow Rate FiO2 07/14/20 08:37 96 07/14/20 08:35 73 139/83 07/14/20 05:35 96.7 20 Room Air I & O 07/13/20 07/13/20 07/14/20 15:00 23:00 07:00 Intake Total 360 ml 360 ml Output Total 500 ml 500 ml Balance 360 ml -140 ml -500 ml Labs: Laboratory Tests Test 07/13/20 11:39 07/13/20 17:07 07/13/20 18:59 07/14/20 07:59 Glucose (Fingerstick) 300 mg/dL (70-99) H 170 mg/dL (70-99) H 145 mg/dL (70-99) H 140 mg/dL (70-99) H Current Medications: Meds: Laboratory Tests Test 07/13/20 11:39 07/13/20 17:07 07/13/20 18:59 07/14/20 07:59 Glucose (Fingerstick) 300 mg/dL 170 mg/dL 145 mg/dL 140 mg/dL Current Medications Medications (Trade) Dose Ordered Sig/Michell Route PRN Reason Start Time Stop Time Status Last Admin Dose Admin Non-Formulary Medication (Non Formulary Item (Ksxwu-Iyfrni-Ygbvw)) 1 ea PRN Q6HRS PRN TP AGITATION 07/10/20 17:15 07/13/20 21:13 Acetaminophen (Tylenol) 650 mg PRN Q6HRS PRN PO MILD PAIN / TEMP > 100.3'F 07/10/20 18:30 Multi-Ingredient Ointment (Analgesic [place]) 1 loyd PRN QID PRN TP MUSCLE PAIN 07/10/20 18:30 Al Hydroxide/Mg Hydroxide (Mylanta Plus Xs) 15 ml PRN AFTMEALHC PRN PO DYSPEPSIA 07/10/20 18:30 Magnesium Hydroxide (Milk Of Magnesia) 2,400 mg PRN QHS PRN PO CONSTIPATION 07/10/20 18:30 Allopurinol (Zyloprim) 100 mg BID PO 07/10/20 21:00 07/14/20 08:35 Vitamin D (Vitamin D3) 1,000 unit DAILY PO 07/11/20 09:00 07/14/20 08:35 Glucose (Insta-Glucose) 15 gm PRN Q15MIN PRN PO HYPOGLYCEMIA 07/10/20 18:30 Dextrose (Dextrose 50%-Water Syringe) 25 gm PRN Q15MIN PRN IV HYPOGLYCEMIA 07/10/20 18:30 Ferrous Sulfate (Feosol) 325 mg BIDWMEALS PO 07/11/20 08:00 07/14/20 08:36 Finasteride (Proscar) 5 mg DAILY PO 07/11/20 09:00 07/14/20 08:35 Gabapentin (Neurontin) 100 mg TID PO 07/10/20 21:00 07/14/20 08:35 Insulin Glargine (Lantus Syringe) 30 unit HS SQ 07/10/20 21:00 07/13/20 21:00 Insulin Human Lispro (HumaLOG) 5 units TIDWMEALS PRN SQ FSBS GREATER THAN 400 07/10/20 18:45 Lisinopril (Prinivil) 10 mg DAILY PO 07/11/20 09:00 07/14/20 08:35 Metoprolol Tartrate (Lopressor) 25 mg DAILY PO 07/11/20 09:00 07/14/20 08:35 Olanzapine (ZyPREXA) 5 mg BID PO 07/10/20 21:00 07/14/20 08:35 Ondansetron HCl (Zofran Odt) 4 mg PRN Q8HRS PRN PO NAUSEA 07/10/20 18:30 Pantoprazole Sodium (Protonix) 40 mg BIDWMEALS PO 07/11/20 08:00 07/14/20 08:36 Sucralfate (Carafate) 1 gm QIDACHS PO 07/10/20 21:00 07/14/20 08:35 Tamsulosin HCl (Flomax) 0.4 mg HS PO 07/10/20 21:00 07/13/20 19:50 Tramadol HCl (Ultram) 50 mg BID PO 07/10/20 21:00 07/14/20 08:37 Lactobacillus Rhamnosus (Culturelle) 1 cap BID PO 07/10/20 21:00 07/14/20 08:34 Glimepiride (Amaryl) 4 mg BIDWMEALS PO 07/11/20 08:00 07/14/20 08:34 Non-Formulary Medication (Glucagon,Human Recombinant (Glucagon Emergency Kit)) 1 mg PRN PRN IM HYPOGLYCEMIA 07/10/20 18:30 UNV Lactulose (Lactulose) 20 gm TID PO 07/10/20 21:00 07/14/20 08:38 Polyethylene Glycol (miraLAX) 17 gm DAILY PO 07/11/20 09:00 07/14/20 08:40 Non-Formulary Medication ([Abh Topical Cream] ) 0.5 ml Q6HRS PRN TOP AGITATION 07/10/20 18:30 07/11/20 07:18 DC Mirtazapine (Remeron) 7.5 mg QHS PO 07/13/20 21:00 07/13/20 19:50 Divalproex Sodium (Depakote Sprinkles) 125 mg BID@0900,1700 PO 07/14/20 09:00 07/14/20 08:36 Trazodone HCl (Desyrel) 50 mg PRN QHS PRN PO INSOMNIA 07/13/20 21:45 07/13/20 21:56 Current Medications Medications (Trade) Dose Ordered Sig/Michell Route PRN Reason Start Time Stop Time Status Last Admin Dose Admin Mirtazapine (Remeron) 7.5 mg QHS PO 07/13/20 21:00 07/13/20 19:50 Divalproex Sodium (Depakote Sprinkles) 125 mg BID@0900,1700 PO 07/14/20 09:00 07/14/20 08:36 Trazodone HCl (Desyrel) 50 mg PRN QHS PRN PO INSOMNIA 07/13/20 21:45 07/13/20 21:56 I have reviewed the current psychotropics carefully including drug interactions. Risk benefit ratio favors no change other than as noted in my dictated progress note. Diagnosis: Problems: (1) Impulse control disorder, unspecified (2) Anxiety disorder, unspecified (3) Dementia, vascular, with depression (4) Dementia, vascular, with delusions (5) Dementia in Alzheimer's disease with depression (6) Dementia in Alzheimer's disease with delusions (7) Dementia of the Alzheimer's type with early onset with behavioral disturbance (8) Major neurocognitive disorder ASIM SPANGLER MD July 14, 2020 08:57
[2020-07-14 16:03] VITALS: BP 118/71
--- NOTE | 2020-07-14 16:05 | NUR ---
Nursing note: Pt in dining room at time of AM med pass and assessment. He was drowsy, did not respond to questions and needed assistance with eating/drinking. Pt was compliant with meds crushed in a bite of pudding and cooperative with assessment. Pt did not appear to be in any pain. He is restless at times, attempting to get out of his wheelchair unassisted, but is able to be redirected. Pt is currently laying quietly in bed. Will continue to monitor.
[2020-07-14] MEDS: TAMSULOSIN 0.4 MG CAP.ER.24H. PO SCH (20:55)
[2020-07-14] MEDS: traZODone 50 MG TABLET. PO PRN (20:55)
[2020-07-14] MEDS: MIRTAZAPINE 15 MG TABLET PO SCH (20:56)
[2020-07-14] MEDS: INSULIN GLARGINE SYRINGE. SQ SCH (21:00)
--- NOTE | 2020-07-14 22:13 | PDOC ---
Exam Note: Harshil Note: Please also refer to the separate dictated note~for this date of service dictated separately.~Patient seen individually. Discussed the patient with Nursing staff reviewed the chart.~Reviewed interim history and current functioning. Reviewed vital signs,~Labs/ Radiology~and current medications noted below. Continue current treatment with the changes noted in the dictated addendum note Assessment: Vital Signs/I&O: Vital Signs Date Time Temp Pulse Resp B/P (MAP) Pulse Ox O2 Delivery O2 Flow Rate FiO2 07/14/20 21:48 92 07/14/20 16:03 98.5 74 18 118/71 (87) 07/14/20 05:35 Room Air I & O 07/13/20 07/13/20 07/14/20 15:00 23:00 07:00 Intake Total 360 ml 360 ml Output Total 500 ml 500 ml Balance 360 ml -140 ml -500 ml Labs: Laboratory Tests Test 07/14/20 07:59 07/14/20 12:00 07/14/20 16:34 07/14/20 19:23 Glucose (Fingerstick) 140 mg/dL (70-99) H 187 mg/dL (70-99) H 212 mg/dL (70-99) H 161 mg/dL (70-99) H Current Medications: Meds: Laboratory Tests Test 07/14/20 07:59 07/14/20 12:00 07/14/20 16:34 07/14/20 19:23 Glucose (Fingerstick) 140 mg/dL 187 mg/dL 212 mg/dL 161 mg/dL Current Medications Medications (Trade) Dose Ordered Sig/Michell Route PRN Reason Start Time Stop Time Status Last Admin Dose Admin Non-Formulary Medication (Non Formulary Item (Pmmmk-Jnhysj-Gepmr)) 1 ea PRN Q6HRS PRN TP AGITATION 07/10/20 17:15 07/13/20 21:13 Acetaminophen (Tylenol) 650 mg PRN Q6HRS PRN PO MILD PAIN / TEMP > 100.3'F 07/10/20 18:30 Multi-Ingredient Ointment (Analgesic [place]) 1 loyd PRN QID PRN TP MUSCLE PAIN 07/10/20 18:30 Al Hydroxide/Mg Hydroxide (Mylanta Plus Xs) 15 ml PRN AFTMEALHC PRN PO DYSPEPSIA 07/10/20 18:30 Magnesium Hydroxide (Milk Of Magnesia) 2,400 mg PRN QHS PRN PO CONSTIPATION 07/10/20 18:30 Allopurinol (Zyloprim) 100 mg BID PO 07/10/20 21:00 07/14/20 20:55 Vitamin D (Vitamin D3) 1,000 unit DAILY PO 07/11/20 09:00 07/14/20 08:35 Glucose (Insta-Glucose) 15 gm PRN Q15MIN PRN PO HYPOGLYCEMIA 07/10/20 18:30 Dextrose (Dextrose 50%-Water Syringe) 25 gm PRN Q15MIN PRN IV HYPOGLYCEMIA 07/10/20 18:30 Ferrous Sulfate (Feosol) 325 mg BIDWMEALS PO 07/11/20 08:00 07/14/20 08:36 Finasteride (Proscar) 5 mg DAILY PO 07/11/20 09:00 07/14/20 08:35 Gabapentin (Neurontin) 100 mg TID PO 07/10/20 21:00 07/14/20 20:55 Insulin Glargine (Lantus Syringe) 30 unit HS SQ 07/10/20 21:00 07/14/20 21:00 Insulin Human Lispro (HumaLOG) 5 units TIDWMEALS PRN SQ FSBS GREATER THAN 400 07/10/20 18:45 Lisinopril (Prinivil) 10 mg DAILY PO 07/11/20 09:00 07/14/20 08:35 Metoprolol Tartrate (Lopressor) 25 mg DAILY PO 07/11/20 09:00 07/14/20 08:35 Olanzapine (ZyPREXA) 5 mg BID PO 07/10/20 21:00 07/14/20 20:55 Ondansetron HCl (Zofran Odt) 4 mg PRN Q8HRS PRN PO NAUSEA 07/10/20 18:30 Pantoprazole Sodium (Protonix) 40 mg BIDWMEALS PO 07/11/20 08:00 07/14/20 08:36 Sucralfate (Carafate) 1 gm QIDACHS PO 07/10/20 21:00 07/14/20 20:56 Tamsulosin HCl (Flomax) 0.4 mg HS PO 07/10/20 21:00 07/14/20 20:55 Tramadol HCl (Ultram) 50 mg BID PO 07/10/20 21:00 07/14/20 20:56 Lactobacillus Rhamnosus (Culturelle) 1 cap BID PO 07/10/20 21:00 07/14/20 20:54 Glimepiride (Amaryl) 4 mg BIDWMEALS PO 07/11/20 08:00 07/14/20 08:34 Non-Formulary Medication (Glucagon,Human Recombinant (Glucagon Emergency Kit)) 1 mg PRN PRN IM HYPOGLYCEMIA 07/10/20 18:30 UNV Lactulose (Lactulose) 20 gm TID PO 07/10/20 21:00 07/14/20 20:55 Polyethylene Glycol (miraLAX) 17 gm DAILY PO 07/11/20 09:00 07/14/20 08:40 Non-Formulary Medication ([Abh Topical Cream] ) 0.5 ml Q6HRS PRN TOP AGITATION 07/10/20 18:30 07/11/20 07:18 DC Mirtazapine (Remeron) 7.5 mg QHS PO 07/13/20 21:00 07/14/20 18:47 DC 07/13/20 19:50 Divalproex Sodium (Depakote Sprinkles) 125 mg BID@0900,1700 PO 07/14/20 09:00 07/14/20 08:36 Trazodone HCl (Desyrel) 50 mg PRN QHS PRN PO INSOMNIA 07/13/20 21:45 07/14/20 20:55 Mirtazapine (Remeron) 15 mg QHS PO 07/14/20 21:00 07/14/20 20:56 Current Medications Medications (Trade) Dose Ordered Sig/Michell Route PRN Reason Start Time Stop Time Status Last Admin Dose Admin Divalproex Sodium (Depakote Sprinkles) 125 mg BID@0900,1700 PO 07/14/20 09:00 07/14/20 08:36 Mirtazapine (Remeron) 15 mg QHS PO 07/14/20 21:00 07/14/20 20:56 I have reviewed the current psychotropics carefully including drug interactions. Risk benefit ratio favors no change other than as noted in my dictated progress note. Diagnosis: Problems: (1) Impulse control disorder, unspecified (2) Anxiety disorder, unspecified (3) Dementia, vascular, with depression (4) Dementia, vascular, with delusions (5) Dementia in Alzheimer's disease with depression (6) Dementia in Alzheimer's disease with delusions (7) Dementia of the Alzheimer's type with early onset with behavioral disturbance (8) Major neurocognitive disorder ASIM SPANGLER MD July 14, 2020 22:13
[2020-07-15 06:24] VITALS: BP 129/64
--- NOTE | 2020-07-15 06:56 | PDOC ---
Exam Note: Harshil Note: This note is a late entry for 07/14/2020 covers elements not covered in my initial note. Subjective: The patient was seen individually in the evening of 07/14/2020 with Clary GLOVER, discussed and reviewed the chart. The patient slept 2-1/2 hours previous night. He has been somewhat drowsy today, restless, trying to get out of his wheelchair, unassisted. He takes meds in pudding. We will increase Remeron from 7.5 mg h.s. to 15 mg h.s. to help with insomnia. Check valproic acid level in the morning. Review of Systems: Ambulation impaired in wheelchair. No CV, , pulmonary, eye, ENT system symptoms on review. Mental Status Exam: The patient is oriented to himself. Insight and judgment, recent and remote memory, attention and concentration, fund of knowledge is poor consistent with his diagnoses. Laboratory Data: Reviewed. Impression: Major neurocognitive disorder Alzheimer vascular with delusion, depression, behavioral disturbance. Anxiety disorder unspecified. Impulse control disorder unspecified. Plan: We will make the changes as noted above including Remeron. We will use trazodone additionally for insomnia. Check valproic acid level. Adjust Depakote. Make further changes as clinically indicated. Assessment: Vital Signs/I&O: Vital Signs Date Time Temp Pulse Resp B/P (MAP) Pulse Ox O2 Delivery O2 Flow Rate FiO2 07/15/20 06:24 98.0 86 16 129/64 (85) 94 Room Air I & O 07/14/20 07/14/20 07/15/20 15:00 23:00 07:00 Intake Total 480 ml 480 ml 120 ml Output Total 650 ml Balance 480 ml 480 ml -530 ml Labs: Laboratory Tests Test 07/14/20 07:59 07/14/20 12:00 07/14/20 16:34 07/14/20 19:23 Glucose (Fingerstick) 140 mg/dL (70-99) H 187 mg/dL (70-99) H 212 mg/dL (70-99) H 161 mg/dL (70-99) H Current Medications: Meds: Laboratory Tests Test 07/14/20 07:59 07/14/20 12:00 07/14/20 16:34 07/14/20 19:23 Glucose (Fingerstick) 140 mg/dL 187 mg/dL 212 mg/dL 161 mg/dL Current Medications Medications (Trade) Dose Ordered Sig/Michell Route PRN Reason Start Time Stop Time Status Last Admin Dose Admin Non-Formulary Medication (Non Formulary Item (Wmouq-Kwhhwe-Htpvg)) 1 ea PRN Q6HRS PRN TP AGITATION 07/10/20 17:15 07/13/20 21:13 Acetaminophen (Tylenol) 650 mg PRN Q6HRS PRN PO MILD PAIN / TEMP > 100.3'F 07/10/20 18:30 Multi-Ingredient Ointment (Analgesic [place]) 1 loyd PRN QID PRN TP MUSCLE PAIN 07/10/20 18:30 Al Hydroxide/Mg Hydroxide (Mylanta Plus Xs) 15 ml PRN AFTMEALHC PRN PO DYSPEPSIA 07/10/20 18:30 Magnesium Hydroxide (Milk Of Magnesia) 2,400 mg PRN QHS PRN PO CONSTIPATION 07/10/20 18:30 Allopurinol (Zyloprim) 100 mg BID PO 07/10/20 21:00 07/14/20 20:55 Vitamin D (Vitamin D3) 1,000 unit DAILY PO 07/11/20 09:00 07/14/20 08:35 Glucose (Insta-Glucose) 15 gm PRN Q15MIN PRN PO HYPOGLYCEMIA 07/10/20 18:30 Dextrose (Dextrose 50%-Water Syringe) 25 gm PRN Q15MIN PRN IV HYPOGLYCEMIA 07/10/20 18:30 Ferrous Sulfate (Feosol) 325 mg BIDWMEALS PO 07/11/20 08:00 07/14/20 08:36 Finasteride (Proscar) 5 mg DAILY PO 07/11/20 09:00 07/14/20 08:35 Gabapentin (Neurontin) 100 mg TID PO 07/10/20 21:00 07/14/20 20:55 Insulin Glargine (Lantus Syringe) 30 unit HS SQ 07/10/20 21:00 07/14/20 21:00 Insulin Human Lispro (HumaLOG) 5 units TIDWMEALS PRN SQ FSBS GREATER THAN 400 07/10/20 18:45 Lisinopril (Prinivil) 10 mg DAILY PO 07/11/20 09:00 07/14/20 08:35 Metoprolol Tartrate (Lopressor) 25 mg DAILY PO 07/11/20 09:00 07/14/20 08:35 Olanzapine (ZyPREXA) 5 mg BID PO 07/10/20 21:00 07/14/20 20:55 Ondansetron HCl (Zofran Odt) 4 mg PRN Q8HRS PRN PO NAUSEA 07/10/20 18:30 Pantoprazole Sodium (Protonix) 40 mg BIDWMEALS PO 07/11/20 08:00 07/14/20 08:36 Sucralfate (Carafate) 1 gm QIDACHS PO 07/10/20 21:00 07/14/20 20:56 Tamsulosin HCl (Flomax) 0.4 mg HS PO 07/10/20 21:00 07/14/20 20:55 Tramadol HCl (Ultram) 50 mg BID PO 07/10/20 21:00 07/14/20 20:56 Lactobacillus Rhamnosus (Culturelle) 1 cap BID PO 07/10/20 21:00 07/14/20 20:54 Glimepiride (Amaryl) 4 mg BIDWMEALS PO 07/11/20 08:00 07/14/20 08:34 Non-Formulary Medication (Glucagon,Human Recombinant (Glucagon Emergency Kit)) 1 mg PRN PRN IM HYPOGLYCEMIA 07/10/20 18:30 UNV Lactulose (Lactulose) 20 gm TID PO 07/10/20 21:00 07/14/20 20:55 Polyethylene Glycol (miraLAX) 17 gm DAILY PO 07/11/20 09:00 07/14/20 08:40 Non-Formulary Medication ([Abh Topical Cream] ) 0.5 ml Q6HRS PRN TOP AGITATION 07/10/20 18:30 07/11/20 07:18 DC Mirtazapine (Remeron) 7.5 mg QHS PO 07/13/20 21:00 07/14/20 18:47 DC 07/13/20 19:50 Divalproex Sodium (Depakote Sprinkles) 125 mg BID@0900,1700 PO 07/14/20 09:00 07/14/20 08:36 Trazodone HCl (Desyrel) 50 mg PRN QHS PRN PO INSOMNIA 07/13/20 21:45 07/14/20 20:55 Mirtazapine (Remeron) 15 mg QHS PO 07/14/20 21:00 07/14/20 20:56 Current Medications Medications (Trade) Dose Ordered Sig/Michell Route PRN Reason Start Time Stop Time Status Last Admin Dose Admin Divalproex Sodium (Depakote Sprinkles) 125 mg BID@0900,1700 PO 07/14/20 09:00 07/14/20 08:36 Mirtazapine (Remeron) 15 mg QHS PO 07/14/20 21:00 07/14/20 20:56 I have reviewed the current psychotropics carefully including drug interactions. Risk benefit ratio favors no change other than as noted in my dictated progress note. Diagnosis: Problems: (1) Impulse control disorder, unspecified (2) Anxiety disorder, unspecified (3) Dementia, vascular, with depression (4) Dementia, vascular, with delusions (5) Dementia in Alzheimer's disease with depression (6) Dementia in Alzheimer's disease with delusions (7) Dementia of the Alzheimer's type with early onset with behavioral disturbance (8) Major neurocognitive disorder ASIM SPANGLER MD July 15, 2020 06:56
[2020-07-15 07:09] LABS: VAL ACID 5 mcg/mL (50-100)
[2020-07-15] MEDS: LACTULOSE 20 GM/30 ML SOLUTION. PO SCH ×3 (09:20→20:30)
[2020-07-15] MEDS: OLANZapine 5 MG TABLET PO SCH ×2 (09:20→20:29)
[2020-07-15] MEDS: POLYETHYLENE GLYCOL 3350 17 GM PACKET. PO SCH (09:20)
[2020-07-15] MEDS: ALLOPURINOL 100 MG TABLET. PO SCH ×2 (09:21→20:29)
[2020-07-15] MEDS: CHOLECALCIFEROL (VITAMIN D3) 1,000 UNIT TABLET PO SCH (09:21)
[2020-07-15] MEDS: SUCRALFATE 1 GM TABLET. PO SCH ×4 (09:21→20:29)
[2020-07-15] MEDS: METOPROLOL TART IMMED RELEASE 25 MG TABLET. PO SCH (09:21)
[2020-07-15] MEDS: GLIMEPIRIDE 2 MG TABLET PO SCH ×2 (09:21→17:23)
[2020-07-15] MEDS: FINASTERIDE 5 MG TABLET. PO SCH (09:21)
[2020-07-15] MEDS: DIVALPROEX 125 MG CAP.SPRINK PO SCH ×2 (09:21→17:22)
[2020-07-15] MEDS: LISINOPRIL 10 MG TABLET PO SCH (09:21)
[2020-07-15] MEDS: LACTOBACILLUS RHAMNOSUS GG 1 CAPSULE. PO SCH ×2 (09:21→20:29)
[2020-07-15] MEDS: FERROUS SULFATE 325 MG TABLET. PO SCH ×2 (09:22→17:22)
[2020-07-15] MEDS: PANTOPRAZOLE 40 MG TABLET. PO SCH ×2 (09:22→17:22)
[2020-07-15] MEDS: GABAPENTIN 100 MG CAPSULE. PO SCH ×3 (09:22→20:29)
[2020-07-15] MEDS: traMADol 50 MG TABLET PO SCH ×2 (09:23→20:29)
--- NOTE | 2020-07-15 13:12 | NUR ---
Nursing note: Pt was allowed to sleep in a little bit this morning, but awoke pleasantly to take his meds crushed in a bite of pudding. He was cooperative with his assessment and with a bed bath. Once awake, pt became slightly more restless. He is currently in the dining room finishing lunch. Will continue to monitor.
[2020-07-15 15:55] VITALS: BP 135/69
[2020-07-15] MEDS: MIRTAZAPINE 15 MG TABLET PO SCH (20:29)
[2020-07-15] MEDS: TAMSULOSIN 0.4 MG CAP.ER.24H. PO SCH (20:29)
--- NOTE | 2020-07-15 20:53 | NUR ---
patients meds given crushed in pudding. patient did not swallow them, he held them in his mouth and then spit them into his juice. Patient is alert but not answering orientation questions. Patient awake and sitting in a broda chair in the day room with a flashing fiber optic flash light, he is calm at this time.
[2020-07-15] MEDS: INSULIN GLARGINE SYRINGE. SQ SCH (21:09)
--- NOTE | 2020-07-15 22:06 | PDOC ---
Exam Note: Harshil Note: Please also refer to the separate dictated note~for this date of service dictated separately.~Patient seen individually. Discussed the patient with Nursing staff reviewed the chart.~Reviewed interim history and current functioning. Reviewed vital signs,~Labs/ Radiology~and current medications noted below. Continue current treatment with the changes noted in the dictated addendum note Assessment: Vital Signs/I&O: Vital Signs Date Time Temp Pulse Resp B/P (MAP) Pulse Ox O2 Delivery O2 Flow Rate FiO2 07/15/20 15:55 97.3 81 18 135/69 (91) 93 07/15/20 06:24 Room Air I & O 07/14/20 07/14/20 07/15/20 15:00 23:00 07:00 Intake Total 480 ml 480 ml 120 ml Output Total 650 ml Balance 480 ml 480 ml -530 ml Labs: Laboratory Tests Test 07/15/20 06:12 07/15/20 07:29 07/15/20 11:52 07/15/20 16:30 Valproic Acid Level 5 mcg/mL (50-100) L Valproic Acid Last Dose Date 07/14/20 Valproic Acid Last Dose Time 0900 Glucose (Fingerstick) 78 mg/dL (70-99) 103 mg/dL (70-99) H 214 mg/dL (70-99) H Test 07/15/20 19:09 Glucose (Fingerstick) 267 mg/dL (70-99) H Current Medications: Meds: Laboratory Tests Test 07/15/20 06:12 07/15/20 07:29 07/15/20 11:52 07/15/20 16:30 Valproic Acid (Depakene) Level 5 mcg/mL Valproic Acid Last Dose Date 07/14/20 Valproic Acid Last Dose Time 0900 Glucose (Fingerstick) 78 mg/dL 103 mg/dL 214 mg/dL Test 07/15/20 19:09 Glucose (Fingerstick) 267 mg/dL Current Medications Medications (Trade) Dose Ordered Sig/Michell Route PRN Reason Start Time Stop Time Status Last Admin Dose Admin Non-Formulary Medication (Non Formulary Item (Nylex-Vigyth-Cdbjt)) 1 ea PRN Q6HRS PRN TP AGITATION 07/10/20 17:15 07/13/20 21:13 Acetaminophen (Tylenol) 650 mg PRN Q6HRS PRN PO MILD PAIN / TEMP > 100.3'F 07/10/20 18:30 Multi-Ingredient Ointment (Analgesic [place]) 1 loyd PRN QID PRN TP MUSCLE PAIN 07/10/20 18:30 Al Hydroxide/Mg Hydroxide (Mylanta Plus Xs) 15 ml PRN AFTMEALHC PRN PO DYSPEPSIA 07/10/20 18:30 Magnesium Hydroxide (Milk Of Magnesia) 2,400 mg PRN QHS PRN PO CONSTIPATION 07/10/20 18:30 Allopurinol (Zyloprim) 100 mg BID PO 07/10/20 21:00 07/15/20 20:29 Vitamin D (Vitamin D3) 1,000 unit DAILY PO 07/11/20 09:00 07/15/20 09:21 Glucose (Insta-Glucose) 15 gm PRN Q15MIN PRN PO HYPOGLYCEMIA 07/10/20 18:30 Dextrose (Dextrose 50%-Water Syringe) 25 gm PRN Q15MIN PRN IV HYPOGLYCEMIA 07/10/20 18:30 Ferrous Sulfate (Feosol) 325 mg BIDWMEALS PO 07/11/20 08:00 07/15/20 17:22 Finasteride (Proscar) 5 mg DAILY PO 07/11/20 09:00 07/15/20 09:21 Gabapentin (Neurontin) 100 mg TID PO 07/10/20 21:00 07/15/20 20:29 Insulin Glargine (Lantus Syringe) 30 unit HS SQ 07/10/20 21:00 07/15/20 21:09 Insulin Human Lispro (HumaLOG) 5 units TIDWMEALS PRN SQ FSBS GREATER THAN 400 07/10/20 18:45 Lisinopril (Prinivil) 10 mg DAILY PO 07/11/20 09:00 07/15/20 09:21 Metoprolol Tartrate (Lopressor) 25 mg DAILY PO 07/11/20 09:00 07/15/20 09:21 Olanzapine (ZyPREXA) 5 mg BID PO 07/10/20 21:00 07/15/20 20:29 Ondansetron HCl (Zofran Odt) 4 mg PRN Q8HRS PRN PO NAUSEA 07/10/20 18:30 Pantoprazole Sodium (Protonix) 40 mg BIDWMEALS PO 07/11/20 08:00 07/15/20 17:22 Sucralfate (Carafate) 1 gm QIDACHS PO 07/10/20 21:00 07/15/20 20:29 Tamsulosin HCl (Flomax) 0.4 mg HS PO 07/10/20 21:00 07/15/20 20:29 Tramadol HCl (Ultram) 50 mg BID PO 07/10/20 21:00 07/15/20 20:29 Lactobacillus Rhamnosus (Culturelle) 1 cap BID PO 07/10/20 21:00 07/15/20 20:29 Glimepiride (Amaryl) 4 mg BIDWMEALS PO 07/11/20 08:00 07/15/20 17:23 Non-Formulary Medication (Glucagon,Human Recombinant (Glucagon Emergency Kit)) 1 mg PRN PRN IM HYPOGLYCEMIA 07/10/20 18:30 UNV Lactulose (Lactulose) 20 gm TID PO 07/10/20 21:00 07/15/20 20:30 Polyethylene Glycol (miraLAX) 17 gm DAILY PO 07/11/20 09:00 07/15/20 09:20 Non-Formulary Medication ([Abh Topical Cream] ) 0.5 ml Q6HRS PRN TOP AGITATION 07/10/20 18:30 07/11/20 07:18 DC Mirtazapine (Remeron) 7.5 mg QHS PO 07/13/20 21:00 07/14/20 18:47 DC 07/13/20 19:50 Divalproex Sodium (Depakote Sprinkles) 125 mg BID@0900,1700 PO 07/14/20 09:00 07/15/20 17:22 Trazodone HCl (Desyrel) 50 mg PRN QHS PRN PO INSOMNIA 07/13/20 21:45 07/14/20 20:55 Mirtazapine (Remeron) 15 mg QHS PO 07/14/20 21:00 07/15/20 20:29 I have reviewed the current psychotropics carefully including drug interactions. Risk benefit ratio favors no change other than as noted in my dictated progress note. Diagnosis: Problems: (1) Impulse control disorder, unspecified (2) Anxiety disorder, unspecified (3) Dementia, vascular, with depression (4) Dementia, vascular, with delusions (5) Dementia in Alzheimer's disease with depression (6) Dementia in Alzheimer's disease with delusions (7) Dementia of the Alzheimer's type with early onset with behavioral disturbance (8) Major neurocognitive disorder ASIM SPANGLER MD July 15, 2020 22:06
--- NOTE | 2020-07-16 04:55 | NUR ---
At approximately 0455 patient got up from his bed without assistance and fell. IVANA Andrade entered room as patient fell, she stated "it appeared that patient struck his right posterior flank on the metal bracket of the Broda Chair leg". Patients bed alarm had been on (and was alarming as she entered his room). His left side bed rail had been up for safety. Patient was unable to state what he was doing or where he was going r/t current mental status and his major neurocognitive d/o diagnosis. Patient has a 18 cm abrasion on his right posterior flank, it was bleeding. Photographed. cleaned and bandaged after housekeeper cleaning cooking rounded and observed wound. Jeanna, housekeeper cleaning cooking notified and visually assessed patient after fall. Dr. Alexander notified of fall, he gave no orders and stated he would round on the patient this morning. Dr. Medellin notified of fall, he gave order for patient to be 1:1 observation for safety. Attempted to call Tiffanie NIETO at 0550, no answer and no VM. Was unable to notify at this time. Addendum: 07/16/20 at 0556 by AVERY KEENE RN clarification: IVANA was responding to bed alarm when she entered the room and observed patient to be out of bed and falling.
[2020-07-16] MEDS: [UNRECOGNIZED DRUG - OTHER] TP PRN ×3 (05:29→20:48)
--- NOTE | 2020-07-16 05:36 | NUR ---
Patient is a 1:[address] Medellin order, r/t fall this morning. Patient is in Broda chair in day room, he is restless, PRN ABH Gel applied topically per order for restlessness/agitation. Patient provided warm blanket for comfort.
[2020-07-16 05:58] VITALS: BP 132/77
[2020-07-16 06:13] VITALS: BP 130/68
[2020-07-16 06:23] LABS: BASO # 0.1 x10^3/uL (0.0-0.2); BASO % 1 % (0-3); EOS # 0.6 x10^3/uL (0.0-0.7); EOS % 11 % (0-3); HEMATOCRIT 37.8 % (39.0-53.0); HEMOGLOBIN 12.6 g/dL (13.0-17.5); LYMPH # 1.1 x10^3/uL (1.0-4.8); LYMPH % 21 % (24-48); MEAN CORPUSCULAR HEMOGLOBIN 33 pg (25-35); MEAN CORPUSCULAR HGB CONC 33 g/dL (31-37); MEAN CORPUSCULAR VOLUME 99 fL (79-100); MONO # 0.4 x10^3/uL (0.0-1.1); MONO % 8 % (0-9); NEUT # 3.2 x10^3uL (1.8-7.7); NEUT % 59 % (31-73); PLATELET COUNT 75 x10^3/uL (140-400); RED BLOOD COUNT 3.83 x10^6/uL (4.30-5.70); WHITE BLOOD COUNT 5.4 x10^3/uL (4.0-11.0)
[2020-07-16 06:37] LABS: ALBUMIN 2.8 g/dL (3.4-5.0); ALBUMIN/GLOBULIN RATIO 0.6 (1.0-1.7); CALCIUM 9.2 mg/dL (8.5-10.1); CREATININE 1.5 mg/dL (0.7-1.3); GFR 45.5; POTASSIUM 3.9 mmol/L (3.5-5.1); TOTAL BILIRUBIN 1.1 mg/dL (0.2-1.0); TOTAL PROTEIN 7.4 g/dL (6.4-8.2)
[2020-07-16 06:45] LABS: VAL ACID 11 mcg/mL (50-100)
[2020-07-16] MEDS: GLIMEPIRIDE 2 MG TABLET PO SCH ×2 (09:58→16:40)
[2020-07-16] MEDS: GABAPENTIN 100 MG CAPSULE. PO SCH ×3 (09:58→20:31)
[2020-07-16] MEDS: PANTOPRAZOLE 40 MG TABLET. PO SCH ×2 (09:58→16:40)
[2020-07-16] MEDS: SUCRALFATE 1 GM TABLET. PO SCH ×4 (09:58→20:31)
[2020-07-16] MEDS: FERROUS SULFATE 325 MG TABLET. PO SCH ×2 (09:58→16:40)
[2020-07-16] MEDS: OLANZapine 5 MG TABLET PO SCH ×2 (09:58→20:31)
[2020-07-16] MEDS: LISINOPRIL 10 MG TABLET PO SCH (09:58)
[2020-07-16] MEDS: DIVALPROEX 125 MG CAP.SPRINK PO SCH ×2 (09:58→16:40)
[2020-07-16] MEDS: ALLOPURINOL 100 MG TABLET. PO SCH ×2 (09:58→20:31)
[2020-07-16] MEDS: METOPROLOL TART IMMED RELEASE 25 MG TABLET. PO SCH (09:59)
[2020-07-16] MEDS: LACTOBACILLUS RHAMNOSUS GG 1 CAPSULE. PO SCH ×2 (09:59→20:31)
[2020-07-16] MEDS: FINASTERIDE 5 MG TABLET. PO SCH (09:59)
[2020-07-16] MEDS: traMADol 50 MG TABLET PO SCH ×2 (09:59→20:31)
[2020-07-16] MEDS: CHOLECALCIFEROL (VITAMIN D3) 1,000 UNIT TABLET PO SCH (09:59)
[2020-07-16] MEDS: LACTULOSE 20 GM/30 ML SOLUTION. PO SCH ×3 (10:00→20:31)
[2020-07-16] MEDS: POLYETHYLENE GLYCOL 3350 17 GM PACKET. PO SCH (10:00)
--- NOTE | 2020-07-16 10:30 | PDOC ---
Exam Note: Harshil Note: This note is a late entry for 07/15/2020 covers elements not covered in my initial note. Subjective: The patient was seen individually in the evening of 07/15/2020 with Clary GLOVER, discussed and reviewed the chart. The patient slept 9-3/4 hours previous night. He remains confused, restless, has been in Broda chair, has to be fed. We will check labs the morning. Valproic acid level is 5. He does have Dash due to retention. Review of Systems: Ambulation impaired in wheelchair. No CV, , pulmonary, eye, ENT system symptoms on review. Mental Status Exam: The patient is oriented to himself. Insight and judgment, recent and remote memory, attention and concentration, fund of knowledge is poor consistent with his diagnoses. Laboratory Data: Reviewed. Impression: Major neurocognitive disorder Alzheimer vascular with delusion, depression, behavioral disturbance. Anxiety disorder unspecified. Impulse control disorder unspecified. Plan: No change from initial note. Assessment: Vital Signs/I&O: Vital Signs Date Time Temp Pulse Resp B/P (MAP) Pulse Ox O2 Delivery O2 Flow Rate FiO2 07/16/20 09:59 94 130/68 07/16/20 06:13 98.7 16 97 07/15/20 06:24 Room Air I & O 07/15/20 07/15/20 07/16/20 15:00 23:00 07:00 Intake Total 120 ml 240 ml 240 ml Output Total 600 ml 325 ml Balance -480 ml 240 ml -85 ml Labs: Laboratory Tests Test 07/15/20 11:52 07/15/20 16:30 07/15/20 19:09 07/16/20 06:10 Glucose (Fingerstick) 103 mg/dL (70-99) H 214 mg/dL (70-99) H 267 mg/dL (70-99) H White Blood Count 5.4 x10^3/uL (4.0-11.0) Red Blood Count 3.83 x10^6/uL (4.30-5.70) L Hemoglobin 12.6 g/dL (13.0-17.5) L Hematocrit 37.8 % (39.0-53.0) L Mean Corpuscular Volume 99 fL (79-100) Mean Corpuscular Hemoglobin 33 pg (25-35) Mean Corpuscular Hemoglobin Concent 33 g/dL (31-37) Red Cell Distribution Width 16.0 % (11.5-14.5) H Platelet Count 75 x10^3/uL (140-400) L Neutrophils (%) (Auto) 59 % (31-73) Lymphocytes (%) (Auto) 21 % (24-48) L Monocytes (%) (Auto) 8 % (0-9) Eosinophils (%) (Auto) 11 % (0-3) H Basophils (%) (Auto) 1 % (0-3) Neutrophils # (Auto) 3.2 x10^3uL (1.8-7.7) Lymphocytes # (Auto) 1.1 x10^3/uL (1.0-4.8) Monocytes # (Auto) 0.4 x10^3/uL (0.0-1.1) Eosinophils # (Auto) 0.6 x10^3/uL (0.0-0.7) Basophils # (Auto) 0.1 x10^3/uL (0.0-0.2) Sodium Level 148 mmol/L (136-145) H Potassium Level 3.9 mmol/L (3.5-5.1) Chloride Level 114 mmol/L (98-107) H Carbon Dioxide Level 23 mmol/L (21-32) Anion Gap 11 (6-14) Blood Urea Nitrogen 30 mg/dL (8-26) H Creatinine 1.5 mg/dL (0.7-1.3) H Estimated GFR (Cockcroft-Gault) 45.5 BUN/Creatinine Ratio 20 (6-20) Glucose Level 179 mg/dL (70-99) H Calcium Level 9.2 mg/dL (8.5-10.1) Total Bilirubin 1.1 mg/dL (0.2-1.0) H Aspartate Amino Transferase (AST) 73 U/L (15-37) H Alanine Aminotransferase (ALT) 41 U/L (16-63) Alkaline Phosphatase 100 U/L (46-116) Total Protein 7.4 g/dL (6.4-8.2) Albumin 2.8 g/dL (3.4-5.0) L Albumin/Globulin Ratio 0.6 (1.0-1.7) L Valproic Acid Level 11 mcg/mL (50-100) L Valproic Acid Last Dose Date 07/16/2020 Valproic Acid Last Dose Time 1700 Test 07/16/20 07:29 Glucose (Fingerstick) 181 mg/dL (70-99) H Current Medications: Meds: Laboratory Tests Test 07/15/20 11:52 07/15/20 16:30 07/15/20 19:09 07/16/20 06:10 Glucose (Fingerstick) 103 mg/dL 214 mg/dL 267 mg/dL White Blood Count 5.4 x10^3/uL Red Blood Count 3.83 x10^6/uL Hemoglobin 12.6 g/dL Hematocrit 37.8 % Mean Corpuscular Volume 99 fL Mean Corpuscular Hemoglobin 33 pg Mean Corpuscular Hemoglobin Concent 33 g/dL Red Cell Distribution Width 16.0 % Platelet Count 75 x10^3/uL Neutrophils (%) (Auto) 59 % Lymphocytes (%) (Auto) 21 % Monocytes (%) (Auto) 8 % Eosinophils (%) (Auto) 11 % Basophils (%) (Auto) 1 % Neutrophils # (Auto) 3.2 x10^3uL Lymphocytes # (Auto) 1.1 x10^3/uL Monocytes # (Auto) 0.4 x10^3/uL Eosinophils # (Auto) 0.6 x10^3/uL Basophils # (Auto) 0.1 x10^3/uL Sodium Level 148 mmol/L Potassium Level 3.9 mmol/L Chloride Level 114 mmol/L Carbon Dioxide Level 23 mmol/L Anion Gap 11 Blood Urea Nitrogen 30 mg/dL Creatinine 1.5 mg/dL Estimated GFR (Cockcroft-Gault) 45.5 BUN/Creatinine Ratio 20 Glucose Level 179 mg/dL Calcium Level 9.2 mg/dL Total Bilirubin 1.1 mg/dL Aspartate Amino Transf (AST/SGOT) 73 U/L Alanine Aminotransferase (ALT/SGPT) 41 U/L Alkaline Phosphatase 100 U/L Total Protein 7.4 g/dL Albumin 2.8 g/dL Albumin/Globulin Ratio 0.6 Valproic Acid (Depakene) Level 11 mcg/mL Valproic Acid Last Dose Date 07/16/2020 Valproic Acid Last Dose Time 1700 Test 07/16/20 07:29 Glucose (Fingerstick) 181 mg/dL Current Medications Medications (Trade) Dose Ordered Sig/Michell Route PRN Reason Start Time Stop Time Status Last Admin Dose Admin Non-Formulary Medication (Non Formulary Item (Evbxm-Xtpyge-Fwnfr)) 1 ea PRN Q6HRS PRN TP AGITATION 07/10/20 17:15 07/16/20 05:29 Acetaminophen (Tylenol) 650 mg PRN Q6HRS PRN PO MILD PAIN / TEMP > 100.3'F 07/10/20 18:30 Multi-Ingredient Ointment (Analgesic Wickes) 1 loyd PRN QID PRN TP MUSCLE PAIN 07/10/20 18:30 Al Hydroxide/Mg Hydroxide (Mylanta Plus Xs) 15 ml PRN AFTMEALHC PRN PO DYSPEPSIA 07/10/20 18:30 Magnesium Hydroxide (Milk Of Magnesia) 2,400 mg PRN QHS PRN PO CONSTIPATION 07/10/20 18:30 Allopurinol (Zyloprim) 100 mg BID PO 07/10/20 21:00 07/16/20 09:58 Vitamin D (Vitamin D3) 1,000 unit DAILY PO 07/11/20 09:00 07/16/20 09:59 Glucose (Insta-Glucose) 15 gm PRN Q15MIN PRN PO HYPOGLYCEMIA 07/10/20 18:30 Dextrose (Dextrose 50%-Water Syringe) 25 gm PRN Q15MIN PRN IV HYPOGLYCEMIA 07/10/20 18:30 Ferrous Sulfate (Feosol) 325 mg BIDWMEALS PO 07/11/20 08:00 07/16/20 09:58 Finasteride (Proscar) 5 mg DAILY PO 07/11/20 09:00 07/16/20 09:59 Gabapentin (Neurontin) 100 mg TID PO 07/10/20 21:00 07/16/20 09:58 Insulin Glargine (Lantus Syringe) 30 unit HS SQ 07/10/20 21:00 07/15/20 21:09 Insulin Human Lispro (HumaLOG) 5 units TIDWMEALS PRN SQ FSBS GREATER THAN 400 07/10/20 18:45 Lisinopril (Prinivil) 10 mg DAILY PO 07/11/20 09:00 07/16/20 09:58 Metoprolol Tartrate (Lopressor) 25 mg DAILY PO 07/11/20 09:00 07/16/20 09:59 Olanzapine (ZyPREXA) 5 mg BID PO 07/10/20 21:00 07/16/20 09:58 Ondansetron HCl (Zofran Odt) 4 mg PRN Q8HRS PRN PO NAUSEA 07/10/20 18:30 Pantoprazole Sodium (Protonix) 40 mg BIDWMEALS PO 07/11/20 08:00 07/16/20 09:58 Sucralfate (Carafate) 1 gm QIDACHS PO 07/10/20 21:00 07/16/20 09:58 Tamsulosin HCl (Flomax) 0.4 mg HS PO 07/10/20 21:00 07/15/20 20:29 Tramadol HCl (Ultram) 50 mg BID PO 07/10/20 21:00 07/16/20 09:59 Lactobacillus Rhamnosus (Culturelle) 1 cap BID PO 07/10/20 21:00 07/16/20 09:59 Glimepiride (Amaryl) 4 mg BIDWMEALS PO 07/11/20 08:00 07/16/20 09:58 Non-Formulary Medication (Glucagon,Human Recombinant (Glucagon Emergency Kit)) 1 mg PRN PRN IM HYPOGLYCEMIA 07/10/20 18:30 UNV Lactulose (Lactulose) 20 gm TID PO 07/10/20 21:00 07/16/20 10:00 Polyethylene Glycol (miraLAX) 17 gm DAILY PO 07/11/20 09:00 07/16/20 10:00 Non-Formulary Medication ([Abh Topical Cream] ) 0.5 ml Q6HRS PRN TOP AGITATION 07/10/20 18:30 07/11/20 07:18 DC Mirtazapine (Remeron) 7.5 mg QHS PO 07/13/20 21:00 07/14/20 18:47 DC 07/13/20 19:50 Divalproex Sodium (Depakote Sprinkles) 125 mg BID@0900,1700 PO 07/14/20 09:00 07/16/20 09:58 Trazodone HCl (Desyrel) 50 mg PRN QHS PRN PO INSOMNIA 07/13/20 21:45 07/14/20 20:55 Mirtazapine (Remeron) 15 mg QHS PO 07/14/20 21:00 07/15/20 20:29 I have reviewed the current psychotropics carefully including drug interactions. Risk benefit ratio favors no change other than as noted in my dictated progress note. Diagnosis: Problems: (1) Impulse control disorder, unspecified (2) Anxiety disorder, unspecified (3) Dementia, vascular, with depression (4) Dementia, vascular, with delusions (5) Dementia in Alzheimer's disease with depression (6) Dementia in Alzheimer's disease with delusions (7) Dementia of the Alzheimer's type with early onset with behavioral disturbance (8) Major neurocognitive disorder ASIM SPANGLER MD July 16, 2020 10:30
--- NOTE | 2020-07-16 14:46 | NUR ---
Nursing Note Patient has had an uneventful shift, med compliant with reinforcement. Patient has been a 1:1 observation throughout shift due to fall in the morning. Patient continues to be restless and tearful throughout shift but is able to be distracted and de-escalated.
--- NOTE | 2020-07-16 15:15 | RAD ---
EXAM: Chest and right ribs, 4 views. HISTORY: Pain. COMPARISON: None. FINDINGS: A frontal view of the chest and 3 views of the right ribs are obtained. There is diffuse in creased interstitial opacity. The heart is normal in size. No pleural effusion or pneumothorax is see n. No displaced rib fracture is seen. There is degenerative change involving the right shoulder. IMPRESSION: 1. Diffuse increased interstitial opacity likely due to interstitial infiltrate or chronic interstiti al lung disease. 2. No convincing acute fracture. Electronically signed by: Addie Lazar MD (07/16/2020 3:13 PM) [id number]
[2020-07-16 16:10] VITALS: BP 134/63
--- NOTE | 2020-07-16 20:30 | NUR ---
Patients DPAO/ called [facility] to check on patient. [facility] staff had been unable to reach her to notify her of patients fall 07/16 0500 despite calling several times on each shift. This nurse advised DPOA of patient fall, abrasion/hematoma injury, subsequent xray and 1:1 status for fall prevention. She stated she was not surprised as patient had been very impulsive and had falls prior to admission at home.
[2020-07-16] MEDS: MIRTAZAPINE 15 MG TABLET PO SCH (20:31)
[2020-07-16] MEDS: TAMSULOSIN 0.4 MG CAP.ER.24H. PO SCH (20:31)
[2020-07-16] MEDS: INSULIN GLARGINE SYRINGE. SQ SCH (20:34)
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
--- NOTE | 2020-07-16 21:55 | PDOC ---
Exam Note: Harshil Note: Please also refer to the separate dictated note~for this date of service dictated separately.~Patient seen individually. Discussed the patient with Nursing staff reviewed the chart.~Reviewed interim history and current functioning. Reviewed vital signs,~Labs/ Radiology~and current medications noted below. Continue current treatment with the changes noted in the dictated addendum note Assessment: Vital Signs/I&O: Vital Signs Date Time Temp Pulse Resp B/P (MAP) Pulse Ox O2 Delivery O2 Flow Rate FiO2 07/16/20 16:10 98.4 95 20 134/63 (86) 94 Room Air I & O 07/15/20 07/15/20 07/16/20 15:00 23:00 07:00 Intake Total 120 ml 240 ml 240 ml Output Total 600 ml 325 ml Balance -480 ml 240 ml -85 ml Labs: Laboratory Tests Test 07/16/20 06:10 07/16/20 07:29 07/16/20 11:28 07/16/20 17:21 White Blood Count 5.4 x10^3/uL (4.0-11.0) Red Blood Count 3.83 x10^6/uL (4.30-5.70) L Hemoglobin 12.6 g/dL (13.0-17.5) L Hematocrit 37.8 % (39.0-53.0) L Mean Corpuscular Volume 99 fL (79-100) Mean Corpuscular Hemoglobin 33 pg (25-35) Mean Corpuscular Hemoglobin Concent 33 g/dL (31-37) Red Cell Distribution Width 16.0 % (11.5-14.5) H Platelet Count 75 x10^3/uL (140-400) L Neutrophils (%) (Auto) 59 % (31-73) Lymphocytes (%) (Auto) 21 % (24-48) L Monocytes (%) (Auto) 8 % (0-9) Eosinophils (%) (Auto) 11 % (0-3) H Basophils (%) (Auto) 1 % (0-3) Neutrophils # (Auto) 3.2 x10^3uL (1.8-7.7) Lymphocytes # (Auto) 1.1 x10^3/uL (1.0-4.8) Monocytes # (Auto) 0.4 x10^3/uL (0.0-1.1) Eosinophils # (Auto) 0.6 x10^3/uL (0.0-0.7) Basophils # (Auto) 0.1 x10^3/uL (0.0-0.2) Sodium Level 148 mmol/L (136-145) H Potassium Level 3.9 mmol/L (3.5-5.1) Chloride Level 114 mmol/L (98-107) H Carbon Dioxide Level 23 mmol/L (21-32) Anion Gap 11 (6-14) Blood Urea Nitrogen 30 mg/dL (8-26) H Creatinine 1.5 mg/dL (0.7-1.3) H Estimated GFR (Cockcroft-Gault) 45.5 BUN/Creatinine Ratio 20 (6-20) Glucose Level 179 mg/dL (70-99) H Calcium Level 9.2 mg/dL (8.5-10.1) Total Bilirubin 1.1 mg/dL (0.2-1.0) H Aspartate Amino Transferase (AST) 73 U/L (15-37) H Alanine Aminotransferase (ALT) 41 U/L (16-63) Alkaline Phosphatase 100 U/L (46-116) Total Protein 7.4 g/dL (6.4-8.2) Albumin 2.8 g/dL (3.4-5.0) L Albumin/Globulin Ratio 0.6 (1.0-1.7) L Valproic Acid Level 11 mcg/mL (50-100) L Valproic Acid Last Dose Date 07/16/2020 Valproic Acid Last Dose Time 1700 Glucose (Fingerstick) 181 mg/dL (70-99) H 233 mg/dL (70-99) H 274 mg/dL (70-99) H Test 07/16/20 19:27 Glucose (Fingerstick) 252 mg/dL (70-99) H Current Medications: Meds: Laboratory Tests Test 07/16/20 06:10 07/16/20 07:29 07/16/20 11:28 07/16/20 17:21 White Blood Count 5.4 x10^3/uL Red Blood Count 3.83 x10^6/uL Hemoglobin 12.6 g/dL Hematocrit 37.8 % Mean Corpuscular Volume 99 fL Mean Corpuscular Hemoglobin 33 pg Mean Corpuscular Hemoglobin Concent 33 g/dL Red Cell Distribution Width 16.0 % Platelet Count 75 x10^3/uL Neutrophils (%) (Auto) 59 % Lymphocytes (%) (Auto) 21 % Monocytes (%) (Auto) 8 % Eosinophils (%) (Auto) 11 % Basophils (%) (Auto) 1 % Neutrophils # (Auto) 3.2 x10^3uL Lymphocytes # (Auto) 1.1 x10^3/uL Monocytes # (Auto) 0.4 x10^3/uL Eosinophils # (Auto) 0.6 x10^3/uL Basophils # (Auto) 0.1 x10^3/uL Sodium Level 148 mmol/L Potassium Level 3.9 mmol/L Chloride Level 114 mmol/L Carbon Dioxide Level 23 mmol/L Anion Gap 11 Blood Urea Nitrogen 30 mg/dL Creatinine 1.5 mg/dL Estimated GFR (Cockcroft-Gault) 45.5 BUN/Creatinine Ratio 20 Glucose Level 179 mg/dL Calcium Level 9.2 mg/dL Total Bilirubin 1.1 mg/dL Aspartate Amino Transf (AST/SGOT) 73 U/L Alanine Aminotransferase (ALT/SGPT) 41 U/L Alkaline Phosphatase 100 U/L Total Protein 7.4 g/dL Albumin 2.8 g/dL Albumin/Globulin Ratio 0.6 Valproic Acid (Depakene) Level 11 mcg/mL Valproic Acid Last Dose Date 07/16/2020 Valproic Acid Last Dose Time 1700 Glucose (Fingerstick) 181 mg/dL 233 mg/dL 274 mg/dL Test 07/16/20 19:27 Glucose (Fingerstick) 252 mg/dL Current Medications Medications (Trade) Dose Ordered Sig/Michell Route PRN Reason Start Time Stop Time Status Last Admin Dose Admin Non-Formulary Medication (Non Formulary Item (Etoru-Ljdvhe-Xerac)) 1 ea PRN Q6HRS PRN TP AGITATION 07/10/20 17:15 07/16/20 20:48 Acetaminophen (Tylenol) 650 mg PRN Q6HRS PRN PO MILD PAIN / TEMP > 100.3'F 07/10/20 18:30 Multi-Ingredient Ointment (Analgesic Bishop) 1 loyd PRN QID PRN TP MUSCLE PAIN 07/10/20 18:30 Al Hydroxide/Mg Hydroxide (Mylanta Plus Xs) 15 ml PRN AFTMEALHC PRN PO DYSPEPSIA 07/10/20 18:30 Magnesium Hydroxide (Milk Of Magnesia) 2,400 mg PRN QHS PRN PO CONSTIPATION 07/10/20 18:30 Allopurinol (Zyloprim) 100 mg BID PO 07/10/20 21:00 07/16/20 20:31 Vitamin D (Vitamin D3) 1,000 unit DAILY PO 07/11/20 09:00 07/16/20 09:59 Glucose (Insta-Glucose) 15 gm PRN Q15MIN PRN PO HYPOGLYCEMIA 07/10/20 18:30 Dextrose (Dextrose 50%-Water Syringe) 25 gm PRN Q15MIN PRN IV HYPOGLYCEMIA 07/10/20 18:30 Ferrous Sulfate (Feosol) 325 mg BIDWMEALS PO 07/11/20 08:00 07/16/20 16:40 Finasteride (Proscar) 5 mg DAILY PO 07/11/20 09:00 07/16/20 09:59 Gabapentin (Neurontin) 100 mg TID PO 07/10/20 21:00 07/16/20 20:31 Insulin Glargine (Lantus Syringe) 30 unit HS SQ 07/10/20 21:00 07/16/20 20:34 Insulin Human Lispro (HumaLOG) 5 units TIDWMEALS PRN SQ FSBS GREATER THAN 400 07/10/20 18:45 Lisinopril (Prinivil) 10 mg DAILY PO 07/11/20 09:00 07/16/20 09:58 Metoprolol Tartrate (Lopressor) 25 mg DAILY PO 07/11/20 09:00 07/16/20 09:59 Olanzapine (ZyPREXA) 5 mg BID PO 07/10/20 21:00 07/16/20 20:31 Ondansetron HCl (Zofran Odt) 4 mg PRN Q8HRS PRN PO NAUSEA 07/10/20 18:30 Pantoprazole Sodium (Protonix) 40 mg BIDWMEALS PO 07/11/20 08:00 07/16/20 16:40 Sucralfate (Carafate) 1 gm QIDACHS PO 07/10/20 21:00 07/16/20 20:31 Tamsulosin HCl (Flomax) 0.4 mg HS PO 07/10/20 21:00 07/16/20 20:31 Tramadol HCl (Ultram) 50 mg BID PO 07/10/20 21:00 07/16/20 20:31 Lactobacillus Rhamnosus (Culturelle) 1 cap BID PO 07/10/20 21:00 07/16/20 20:31 Glimepiride (Amaryl) 4 mg BIDWMEALS PO 07/11/20 08:00 07/16/20 16:40 Non-Formulary Medication (Glucagon,Human Recombinant (Glucagon Emergency Kit)) 1 mg PRN PRN IM HYPOGLYCEMIA 07/10/20 18:30 UNV Lactulose (Lactulose) 20 gm TID PO 07/10/20 21:00 07/16/20 20:31 Polyethylene Glycol (miraLAX) 17 gm DAILY PO 07/11/20 09:00 07/16/20 10:00 Non-Formulary Medication ([Abh Topical Cream] ) 0.5 ml Q6HRS PRN TOP AGITATION 07/10/20 18:30 07/11/20 07:18 DC Mirtazapine (Remeron) 7.5 mg QHS PO 07/13/20 21:00 07/14/20 18:47 DC 07/13/20 19:50 Divalproex Sodium (Depakote Sprinkles) 125 mg BID@0900,1700 PO 07/14/20 09:00 07/16/20 16:40 Trazodone HCl (Desyrel) 50 mg PRN QHS PRN PO INSOMNIA 07/13/20 21:45 07/14/20 20:55 Mirtazapine (Remeron) 15 mg QHS PO 07/14/20 21:00 07/16/20 20:31 I have reviewed the current psychotropics carefully including drug interactions. Risk benefit ratio favors no change other than as noted in my dictated progress note. Diagnosis: Problems: (1) Impulse control disorder, unspecified (2) Anxiety disorder, unspecified (3) Dementia, vascular, with depression (4) Dementia, vascular, with delusions (5) Dementia in Alzheimer's disease with depression (6) Dementia in Alzheimer's disease with delusions (7) Dementia of the Alzheimer's type with early onset with behavioral disturba nce (8) Major neurocognitive disorder ASIM SPANGLER MD July 16, 2020 21:55
[2020-07-16] MEDS: traZODone 50 MG TABLET. PO PRN (22:34)
[2020-07-17] MEDS: [UNRECOGNIZED DRUG - OTHER] TP PRN (05:59)
[2020-07-17] MEDS: OLANZapine 5 MG TABLET PO SCH ×2 (06:02→20:16)
--- NOTE | 2020-07-17 06:03 | NUR ---
Patient remains 1:1 for safety. Patient agitated and restless, and he is attempting to pull hartmann catheter. PRN ABH cream applied topically for agitation. Soft mitts applied, not effective. Scheduled 0900 morning PO olanzapine given now for agitation. Will continue to monitor.
[2020-07-17 06:17] VITALS: BP 101/67
[2020-07-17] MEDS: CHOLECALCIFEROL (VITAMIN D3) 1,000 UNIT TABLET PO SCH (10:24)
[2020-07-17] MEDS: LACTULOSE 20 GM/30 ML SOLUTION. PO SCH ×3 (10:24→20:15)
[2020-07-17] MEDS: POLYETHYLENE GLYCOL 3350 17 GM PACKET. PO SCH (10:24)
[2020-07-17] MEDS: FINASTERIDE 5 MG TABLET. PO SCH (10:24)
[2020-07-17] MEDS: FERROUS SULFATE 325 MG TABLET. PO SCH ×2 (10:25→17:11)
[2020-07-17] MEDS: METOPROLOL TART IMMED RELEASE 25 MG TABLET. PO SCH (10:25)
[2020-07-17] MEDS: ALLOPURINOL 100 MG TABLET. PO SCH ×2 (10:25→20:15)
[2020-07-17] MEDS: traMADol 50 MG TABLET PO SCH ×2 (10:25→20:16)
[2020-07-17] MEDS: LACTOBACILLUS RHAMNOSUS GG 1 CAPSULE. PO SCH ×2 (10:25→20:15)
[2020-07-17] MEDS: SUCRALFATE 1 GM TABLET. PO SCH ×4 (10:25→20:16)
[2020-07-17] MEDS: DIVALPROEX 125 MG CAP.SPRINK PO SCH ×2 (10:25→17:11)
[2020-07-17] MEDS: GABAPENTIN 100 MG CAPSULE. PO SCH ×3 (10:25→20:16)
[2020-07-17] MEDS: PANTOPRAZOLE 40 MG TABLET. PO SCH ×2 (10:26→17:11)
[2020-07-17] MEDS: GLIMEPIRIDE 2 MG TABLET PO SCH ×2 (10:26→17:11)
[2020-07-17] MEDS: LISINOPRIL 10 MG TABLET PO SCH (10:26)
--- NOTE | 2020-07-17 11:57 | NUR ---
Nursing note: Pt was asleep in the dining room at time of assessment. Pt was allowed to continue sleeping and meds were crushed in pudding and given a short time later. He is med compliant and cooperative. Pt is restless at times, attempts to pull at his hartmann, but is able to be redirected. He continues to be 1:1 for safety and is currently sitting with staff in the day room. Will continue to monitor.
[2020-07-17 15:08] LABS: BACTERIA,URINE MOD /HPF (0-FEW); BILIRUBIN,URINE MOD (NEG); CLARITY,URINE TURBID; COLOR,URINE AMBER; GLUCOSE,URINE NEG (NEG); NITRITE,URINE POS (NEG); SQUAMOUS EPITHELIAL CELL,UR OCC /LPF; WBC,URINE >40 /HPF (0-4)
[2020-07-17 15:52] VITALS: BP 125/53
[2020-07-17] MEDS: MELATONIN 3 MG TABLET PO SCH (20:15)
[2020-07-17] MEDS: MIRTAZAPINE 15 MG TABLET PO SCH (20:15)
[2020-07-17] MEDS: TAMSULOSIN 0.4 MG CAP.ER.24H. PO SCH (20:16)
[2020-07-17] MEDS: INSULIN GLARGINE SYRINGE. SQ SCH (21:31)
--- NOTE | 2020-07-17 22:20 | PDOC ---
Exam Note: Harshil Note: Please also refer to the separate dictated note~for this date of service dictated separately.~Patient seen individually. Discussed the patient with Nursing staff reviewed the chart.~Reviewed interim history and current functioning. Reviewed vital signs,~Labs/ Radiology~and current medications noted below. Continue current treatment with the changes noted in the dictated addendum note Assessment: Vital Signs/I&O: Vital Signs Date Time Temp Pulse Resp B/P (MAP) Pulse Ox O2 Delivery O2 Flow Rate FiO2 07/17/20 15:52 98.6 70 16 125/53 (77) 95 07/17/20 06:17 Room Air I & O 07/16/20 07/16/20 07/17/20 15:00 23:00 07:00 Intake Total 360 ml 240 ml Output Total 600 ml 500 ml Balance 360 ml -360 ml -500 ml Labs: Laboratory Tests Test 07/17/20 07:48 07/17/20 12:11 07/17/20 14:25 07/17/20 16:40 Glucose (Fingerstick) 136 mg/dL (70-99) H 162 mg/dL (70-99) H 289 mg/dL (70-99) H Urine Collection Type Unknown Urine Color Sarahy Urine Clarity Turbid Urine pH 6.0 Urine Specific [place] >=1.030 Urine Protein 100 mg/dl (NEG-TRACE) Urine Glucose (UA) Neg mg/dL (NEG) Urine Ketones (Stick) 15 mg/dL (NEG) Urine Blood Large (NEG) Urine Nitrite Pos (NEG) Urine Bilirubin Mod (NEG) Urine Urobilinogen Dipstick 1.0 mg/dL (0.2 mg/dL) Urine Leukocyte Esterase Small (NEG) Urine RBC 11-20 /HPF (0-2) Urine WBC >40 /HPF (0-4) Urine Squamous Epithelial Cells Occ /LPF Urine Bacteria Mod /HPF (0-FEW) Test 07/17/20 19:05 Glucose (Fingerstick) 244 mg/dL (70-99) H Current Medications: Meds: Laboratory Tests Test 07/17/20 07:48 07/17/20 12:11 07/17/20 14:25 07/17/20 16:40 Glucose (Fingerstick) 136 mg/dL 162 mg/dL 289 mg/dL Urine Collection Type Unknown Urine Color Sarahy Urine Clarity Turbid Urine pH 6.0 Urine Specific [place] >=1.030 Urine Protein 100 mg/dl Urine Glucose (UA) Neg mg/dL Urine Ketones (Stick) 15 mg/dL Urine Blood Large Urine Nitrite Pos Urine Bilirubin Mod Urine Urobilinogen Dipstick 1.0 mg/dL Urine Leukocyte Esterase Small Urine RBC 11-20 /HPF Urine WBC >40 /HPF Urine Squamous Epithelial Cells Occ /LPF Urine Bacteria Mod /HPF Test 07/17/20 19:05 Glucose (Fingerstick) 244 mg/dL Current Medications Medications (Trade) Dose Ordered Sig/Michell Route PRN Reason Start Time Stop Time Status Last Admin Dose Admin Non-Formulary Medication (Non Formulary Item (Uzluh-Boizte-Veipc)) 1 ea PRN Q6HRS PRN TP AGITATION 07/10/20 17:15 07/17/20 05:59 Acetaminophen (Tylenol) 650 mg PRN Q6HRS PRN PO MILD PAIN / TEMP > 100.3'F 07/10/20 18:30 Multi-Ingredient Ointment (Analgesic [place]) 1 loyd PRN QID PRN TP MUSCLE PAIN 07/10/20 18:30 Al Hydroxide/Mg Hydroxide (Mylanta Plus Xs) 15 ml PRN AFTMEALHC PRN PO DYSPEPSIA 07/10/20 18:30 Magnesium Hydroxide (Milk Of Magnesia) 2,400 mg PRN QHS PRN PO CONSTIPATION 07/10/20 18:30 Allopurinol (Zyloprim) 100 mg BID PO 07/10/20 21:00 07/17/20 20:15 Vitamin D (Vitamin D3) 1,000 unit DAILY PO 07/11/20 09:00 07/17/20 10:24 Glucose (Insta-Glucose) 15 gm PRN Q15MIN PRN PO HYPOGLYCEMIA 07/10/20 18:30 Dextrose (Dextrose 50%-Water Syringe) 25 gm PRN Q15MIN PRN IV HYPOGLYCEMIA 07/10/20 18:30 Ferrous Sulfate (Feosol) 325 mg BIDWMEALS PO 07/11/20 08:00 07/17/20 17:11 Finasteride (Proscar) 5 mg DAILY PO 07/11/20 09:00 07/17/20 10:24 Gabapentin (Neurontin) 100 mg TID PO 07/10/20 21:00 07/17/20 20:16 Insulin Glargine (Lantus Syringe) 30 unit HS SQ 07/10/20 21:00 07/17/20 21:31 Insulin Human Lispro (HumaLOG) 5 units TIDWMEALS PRN SQ FSBS GREATER THAN 400 07/10/20 18:45 Lisinopril (Prinivil) 10 mg DAILY PO 07/11/20 09:00 07/17/20 10:26 Metoprolol Tartrate (Lopressor) 25 mg DAILY PO 07/11/20 09:00 07/17/20 10:25 Olanzapine (ZyPREXA) 5 mg BID PO 07/10/20 21:00 07/17/20 20:16 Ondansetron HCl (Zofran Odt) 4 mg PRN Q8HRS PRN PO NAUSEA 07/10/20 18:30 Pantoprazole Sodium (Protonix) 40 mg BIDWMEALS PO 07/11/20 08:00 07/17/20 17:11 Sucralfate (Carafate) 1 gm QIDACHS PO 07/10/20 21:00 07/17/20 20:16 Tamsulosin HCl (Flomax) 0.4 mg HS PO 07/10/20 21:00 07/17/20 20:16 Tramadol HCl (Ultram) 50 mg BID PO 07/10/20 21:00 07/17/20 20:16 Lactobacillus Rhamnosus (Culturelle) 1 cap BID PO 07/10/20 21:00 07/17/20 20:15 Glimepiride (Amaryl) 4 mg BIDWMEALS PO 07/11/20 08:00 07/17/20 17:11 Non-Formulary Medication (Glucagon,Human Recombinant (Glucagon Emergency Kit)) 1 mg PRN PRN IM HYPOGLYCEMIA 07/10/20 18:30 UNV Lactulose (Lactulose) 20 gm TID PO 07/10/20 21:00 07/17/20 20:15 Polyethylene Glycol (miraLAX) 17 gm DAILY PO 07/11/20 09:00 07/17/20 10:24 Non-Formulary Medication ([Abh Topical Cream] ) 0.5 ml Q6HRS PRN TOP AGITATION 07/10/20 18:30 07/11/20 07:18 DC Mirtazapine (Remeron) 7.5 mg QHS PO 07/13/20 21:00 07/14/20 18:47 DC 07/13/20 19:50 Divalproex Sodium (Depakote Sprinkles) 125 mg BID@0900,1700 PO 07/14/20 09:00 07/17/20 17:11 Trazodone HCl (Desyrel) 50 mg PRN QHS PRN PO INSOMNIA 07/13/20 21:45 07/16/20 22:34 Mirtazapine (Remeron) 15 mg QHS PO 07/14/20 21:00 07/17/20 20:15 Melatonin (Melatonin) 3 mg QHS PO 07/17/20 21:00 07/17/20 20:15 Current Medications Medications (Trade) Dose Ordered Sig/Michell Route PRN Reason Start Time Stop Time Status Last Admin Dose Admin Melatonin (Melatonin) 3 mg QHS PO 07/17/20 21:00 07/17/20 20:15 I have reviewed the current psychotropics carefully including drug interactions. Risk benefit ratio favors no change other than as noted in my dictated progress note. Diagnosis: Problems: (1) Impulse control disorder, unspecified (2) Anxiety disorder, unspecified (3) Dementia, vascular, with depression (4) Dementia, vascular, with delusions (5) Dementia in Alzheimer's disease with depression (6) Dementia in Alzheimer's disease with delusions (7) Dementia of the Alzheimer's type with early onset with behavioral disturbance (8) Major neurocognitive disorder ASIM SPANGLER MD July 17, 2020 22:20
--- NOTE | 2020-07-18 00:09 | NUR ---
Patient has been restless, agitated and has attempted to hit at staff at times. He continues to be 1:1 for fall prevention, safety. Mits on patients hands at the beginning of the shift because he was attempting to put his hand in his pants and pull his hartmann out. Patient compliant with medications crushed and put into lactulose and then spooned into his mouth by nurse. Patient does not answer questions. He was resistive in the shower and had difficulty following simple directions during dressing. Bandage on patients right posterior flank was changed after his shower. Area remains very bruised and was bleeding slightly during bandage change. Bruising has increased in size since 07/16. This nurse cleaned wound with saline wound wash, applied ABD pad and covered with "sheet" tape to keep pad on. Wound care consult was entered on 07/16 after fall. Patient wincing while nurse was cleaning and bandaging the area. Patients urine is dark purple/red in his hartmann bag. Sample was sent to lab for UA and went to culture. Will continue to monitor.
[2020-07-18 05:37] VITALS: BP 98/55
--- NOTE | 2020-07-18 09:05 | PDOC ---
Exam Note: Harshil Note: This note is a late entry for 07/16/2020 covers elements not covered in my initial note. Subjective: The patient was seen individually in the evening of 07/16/2020 with Pradip GLOVER, discussed and reviewed the chart. The patient slept 5-3/4 hours previous night. He had a fall at 5 a.m. Received skin abrasion. He remains on one-on-one status post fall. Chest x-ray and rib x-rays were done. Refused CT head. He was pulling off his catheter, tearful, refusing his medications at times, took them later. We will check UA to rule out UTI, and CBC, CMP. Review of Systems: Ambulation impaired in wheelchair. No CV, , pulmonary, eye, ENT system symptoms on review. Mental Status Exam: The patient is oriented to himself. Insight and judgment, recent and remote memory, attention and concentration, fund of knowledge is poor consistent with his diagnoses. Laboratory Data: Reviewed. Impression: Major neurocognitive disorder Alzheimer vascular with delusion, depression, behavioral disturbance. Anxiety disorder unspecified. Impulse control disorder unspecified. Plan: No change from initial note. Assessment: Vital Signs/I&O: Vital Signs Date Time Temp Pulse Resp B/P (MAP) Pulse Ox O2 Delivery O2 Flow Rate FiO2 07/18/20 05:37 97.7 88 20 98/55 (69) 93 07/17/20 06:17 Room Air I & O 07/17/20 07/17/20 07/18/20 15:00 23:00 07:00 Intake Total 120 ml 360 ml Output Total 300 ml Balance 120 ml 360 ml -300 ml Labs: Laboratory Tests Test 07/17/20 12:11 07/17/20 14:25 07/17/20 16:40 07/17/20 19:05 Glucose (Fingerstick) 162 mg/dL (70-99) H 289 mg/dL (70-99) H 244 mg/dL (70-99) H Urine Collection Type Unknown Urine Color Sarahy Urine Clarity Turbid Urine pH 6.0 Urine Specific [place] >=1.030 Urine Protein 100 mg/dl (NEG-TRACE) Urine Glucose (UA) Neg mg/dL (NEG) Urine Ketones (Stick) 15 mg/dL (NEG) Urine Blood Large (NEG) Urine Nitrite Pos (NEG) Urine Bilirubin Mod (NEG) Urine Urobilinogen Dipstick 1.0 mg/dL (0.2 mg/dL) Urine Leukocyte Esterase Small (NEG) Urine RBC 11-20 /HPF (0-2) Urine WBC >40 /HPF (0-4) Urine Squamous Epithelial Cells Occ /LPF Urine Bacteria Mod /HPF (0-FEW) Test 07/18/20 07:32 Glucose (Fingerstick) 125 mg/dL (70-99) H Current Medications: Meds: Laboratory Tests Test 07/17/20 12:11 07/17/20 14:25 07/17/20 16:40 07/17/20 19:05 Glucose (Fingerstick) 162 mg/dL 289 mg/dL 244 mg/dL Urine Collection Type Unknown Urine Color Sarahy Urine Clarity Turbid Urine pH 6.0 Urine Specific [place] >=1.030 Urine Protein 100 mg/dl Urine Glucose (UA) Neg mg/dL Urine Ketones (Stick) 15 mg/dL Urine Blood Large Urine Nitrite Pos Urine Bilirubin Mod Urine Urobilinogen Dipstick 1.0 mg/dL Urine Leukocyte Esterase Small Urine RBC 11-20 /HPF Urine WBC >40 /HPF Urine Squamous Epithelial Cells Occ /LPF Urine Bacteria Mod /HPF Test 07/18/20 07:32 Glucose (Fingerstick) 125 mg/dL Current Medications Medications (Trade) Dose Ordered Sig/Michell Route PRN Reason Start Time Stop Time Status Last Admin Dose Admin Non-Formulary Medication (Non Formulary Item (Vtzmn-Luyctz-Alqxj)) 1 ea PRN Q6HRS PRN TP AGITATION 07/10/20 17:15 07/17/20 05:59 Acetaminophen (Tylenol) 650 mg PRN Q6HRS PRN PO MILD PAIN / TEMP > 100.3'F 07/10/20 18:30 Multi-Ingredient Ointment (Analgesic [place]) 1 loyd PRN QID PRN TP MUSCLE PAIN 07/10/20 18:30 Al Hydroxide/Mg Hydroxide (Mylanta Plus Xs) 15 ml PRN AFTMEALHC PRN PO DYSPEPSIA 07/10/20 18:30 Magnesium Hydroxide (Milk Of Magnesia) 2,400 mg PRN QHS PRN PO CONSTIPATION 07/10/20 18:30 Allopurinol (Zyloprim) 100 mg BID PO 07/10/20 21:00 07/17/20 20:15 Vitamin D (Vitamin D3) 1,000 unit DAILY PO 07/11/20 09:00 07/17/20 10:24 Glucose (Insta-Glucose) 15 gm PRN Q15MIN PRN PO HYPOGLYCEMIA 07/10/20 18:30 Dextrose (Dextrose 50%-Water Syringe) 25 gm PRN Q15MIN PRN IV HYPOGLYCEMIA 07/10/20 18:30 Ferrous Sulfate (Feosol) 325 mg BIDWMEALS PO 07/11/20 08:00 07/17/20 17:11 Finasteride (Proscar) 5 mg DAILY PO 07/11/20 09:00 07/17/20 10:24 Gabapentin (Neurontin) 100 mg TID PO 07/10/20 21:00 07/17/20 20:16 Insulin Glargine (Lantus Syringe) 30 unit HS SQ 07/10/20 21:00 07/17/20 21:31 Insulin Human Lispro (HumaLOG) 5 units TIDWMEALS PRN SQ FSBS GREATER THAN 400 07/10/20 18:45 Lisinopril (Prinivil) 10 mg DAILY PO 07/11/20 09:00 07/17/20 10:26 Metoprolol Tartrate (Lopressor) 25 mg DAILY PO 07/11/20 09:00 07/17/20 10:25 Olanzapine (ZyPREXA) 5 mg BID PO 07/10/20 21:00 07/17/20 20:16 Ondansetron HCl (Zofran Odt) 4 mg PRN Q8HRS PRN PO NAUSEA 07/10/20 18:30 Pantoprazole Sodium (Protonix) 40 mg BIDWMEALS PO 07/11/20 08:00 07/17/20 17:11 Sucralfate (Carafate) 1 gm QIDACHS PO 07/10/20 21:00 07/17/20 20:16 Tamsulosin HCl (Flomax) 0.4 mg HS PO 07/10/20 21:00 07/17/20 20:16 Tramadol HCl (Ultram) 50 mg BID PO 07/10/20 21:00 07/17/20 20:16 Lactobacillus Rhamnosus (Culturelle) 1 cap BID PO 07/10/20 21:00 07/17/20 20:15 Glimepiride (Amaryl) 4 mg BIDWMEALS PO 07/11/20 08:00 07/17/20 17:11 Non-Formulary Medication (Glucagon,Human Recombinant (Glucagon Emergency Kit)) 1 mg PRN PRN IM HYPOGLYCEMIA 07/10/20 18:30 UNV Lactulose (Lactulose) 20 gm TID PO 07/10/20 21:00 07/17/20 20:15 Polyethylene Glycol (miraLAX) 17 gm DAILY PO 07/11/20 09:00 07/17/20 10:24 Non-Formulary Medication ([Abh Topical Cream] ) 0.5 ml Q6HRS PRN TOP AGITATION 07/10/20 18:30 07/11/20 07:18 DC Mirtazapine (Remeron) 7.5 mg QHS PO 07/13/20 21:00 07/14/20 18:47 DC 07/13/20 19:50 Divalproex Sodium (Depakote Sprinkles) 125 mg BID@0900,1700 PO 07/14/20 09:00 07/17/20 17:11 Trazodone HCl (Desyrel) 50 mg PRN QHS PRN PO INSOMNIA 07/13/20 21:45 07/16/20 22:34 Mirtazapine (Remeron) 15 mg QHS PO 07/14/20 21:00 07/17/20 20:15 Melatonin (Melatonin) 3 mg QHS PO 07/17/20 21:00 07/17/20 20:15 Current Medications Medications (Trade) Dose Ordered Sig/Michell Route PRN Reason Start Time Stop Time Status Last Admin Dose Admin Melatonin (Melatonin) 3 mg QHS PO 07/17/20 21:00 07/17/20 20:15 I have reviewed the current psychotropics carefully including drug interactions. Risk benefit ratio favors no change other than as noted in my dictated progress note. Diagnosis: Problems: (1) Impulse control disorder, unspecified (2) Anxiety disorder, unspecified (3) Dementia, vascular, with depression (4) Dementia, vascular, with delusions (5) Dementia in Alzheimer's disease with depression (6) Dementia in Alzheimer's disease with delusions (7) Dementia of the Alzheimer's type with early onset with behavioral disturbance (8) Major neurocognitive disorder ASIM SPANGLER MD July 18, 2020 09:05
--- NOTE | 2020-07-18 09:29 | PDOC ---
Exam Note: Harshil Note: This note is a late entry for 07/17/2020 covers elements not covered in my initial note. Subjective: The patient was seen individually in the evening of 07/17/2020 with Clary GLOVER, discussed and reviewed the chart. The patient slept 2 hours previous night. He has been punching at staff, impulsive, confused, pulling on his Foleys. Nursing staff have placed mitts on him and takes medications crushed. UA has reflex to culture, probably the UTI worsening his agitation. AST is mildly elevated. He has received Benadryl, Haldol, Ativan gel twice previous night, Zyprexa this morning p.r.n. Review of Systems: Ambulation impaired in wheelchair. No CV, , pulmonary, eye, ENT system symptoms on review. Gait unsteady. Reliability poor. Mental Status Exam: The patient is oriented to himself. Insight and judgment, recent and remote memory, attention and concentration, fund of knowledge is poor consistent with his diagnoses. Laboratory Data: Reviewed. Impression: Major neurocognitive disorder Alzheimer vascular with delusion, depression, behavioral disturbance. Anxiety disorder unspecified. Impulse control disorder unspecified. Plan: No change from initial note. We will add melatonin 3 mg h.s. for his insomnia. Assessment: Vital Signs/I&O: Vital Signs Date Time Temp Pulse Resp B/P (MAP) Pulse Ox O2 Delivery O2 Flow Rate FiO2 07/18/20 05:37 97.7 88 20 98/55 (69) 93 07/17/20 06:17 Room Air I & O 07/17/20 07/17/20 07/18/20 15:00 23:00 07:00 Intake Total 120 ml 360 ml Output Total 300 ml Balance 120 ml 360 ml -300 ml Labs: Laboratory Tests Test 07/17/20 12:11 07/17/20 14:25 07/17/20 16:40 07/17/20 19:05 Glucose (Fingerstick) 162 mg/dL (70-99) H 289 mg/dL (70-99) H 244 mg/dL (70-99) H Urine Collection Type Unknown Urine Color Sarahy Urine Clarity Turbid Urine pH 6.0 Urine Specific [place] >=1.030 Urine Protein 100 mg/dl (NEG-TRACE) Urine Glucose (UA) Neg mg/dL (NEG) Urine Ketones (Stick) 15 mg/dL (NEG) Urine Blood Large (NEG) Urine Nitrite Pos (NEG) Urine Bilirubin Mod (NEG) Urine Urobilinogen Dipstick 1.0 mg/dL (0.2 mg/dL) Urine Leukocyte Esterase Small (NEG) Urine RBC 11-20 /HPF (0-2) Urine WBC >40 /HPF (0-4) Urine Squamous Epithelial Cells Occ /LPF Urine Bacteria Mod /HPF (0-FEW) Test 07/18/20 07:32 Glucose (Fingerstick) 125 mg/dL (70-99) H Current Medications: Meds: Laboratory Tests Test 07/17/20 12:11 07/17/20 14:25 07/17/20 16:40 07/17/20 19:05 Glucose (Fingerstick) 162 mg/dL 289 mg/dL 244 mg/dL Urine Collection Type Unknown Urine Color Sarahy Urine Clarity Turbid Urine pH 6.0 Urine Specific [place] >=1.030 Urine Protein 100 mg/dl Urine Glucose (UA) Neg mg/dL Urine Ketones (Stick) 15 mg/dL Urine Blood Large Urine Nitrite Pos Urine Bilirubin Mod Urine Urobilinogen Dipstick 1.0 mg/dL Urine Leukocyte Esterase Small Urine RBC 11-20 /HPF Urine WBC >40 /HPF Urine Squamous Epithelial Cells Occ /LPF Urine Bacteria Mod /HPF Test 07/18/20 07:32 Glucose (Fingerstick) 125 mg/dL Current Medications Medications (Trade) Dose Ordered Sig/Michell Route PRN Reason Start Time Stop Time Status Last Admin Dose Admin Non-Formulary Medication (Non Formulary Item (Rpnul-Sorxkn-Jbvmi)) 1 ea PRN Q6HRS PRN TP AGITATION 07/10/20 17:15 07/17/20 05:59 Acetaminophen (Tylenol) 650 mg PRN Q6HRS PRN PO MILD PAIN / TEMP > 100.3'F 07/10/20 18:30 Multi-Ingredient Ointment (Analgesic [place]) 1 loyd PRN QID PRN TP MUSCLE PAIN 07/10/20 18:30 Al Hydroxide/Mg Hydroxide (Mylanta Plus Xs) 15 ml PRN AFTMEALHC PRN PO DYSPEPSIA 07/10/20 18:30 Magnesium Hydroxide (Milk Of Magnesia) 2,400 mg PRN QHS PRN PO CONSTIPATION 07/10/20 18:30 Allopurinol (Zyloprim) 100 mg BID PO 07/10/20 21:00 07/17/20 20:15 Vitamin D (Vitamin D3) 1,000 unit DAILY PO 07/11/20 09:00 07/17/20 10:24 Glucose (Insta-Glucose) 15 gm PRN Q15MIN PRN PO HYPOGLYCEMIA 07/10/20 18:30 Dextrose (Dextrose 50%-Water Syringe) 25 gm PRN Q15MIN PRN IV HYPOGLYCEMIA 07/10/20 18:30 Ferrous Sulfate (Feosol) 325 mg BIDWMEALS PO 07/11/20 08:00 07/17/20 17:11 Finasteride (Proscar) 5 mg DAILY PO 07/11/20 09:00 07/17/20 10:24 Gabapentin (Neurontin) 100 mg TID PO 07/10/20 21:00 07/17/20 20:16 Insulin Glargine (Lantus Syringe) 30 unit HS SQ 07/10/20 21:00 07/17/20 21:31 Insulin Human Lispro (HumaLOG) 5 units TIDWMEALS PRN SQ FSBS GREATER THAN 400 07/10/20 18:45 Lisinopril (Prinivil) 10 mg DAILY PO 07/11/20 09:00 07/17/20 10:26 Metoprolol Tartrate (Lopressor) 25 mg DAILY PO 07/11/20 09:00 07/17/20 10:25 Olanzapine (ZyPREXA) 5 mg BID PO 07/10/20 21:00 07/17/20 20:16 Ondansetron HCl (Zofran Odt) 4 mg PRN Q8HRS PRN PO NAUSEA 07/10/20 18:30 Pantoprazole Sodium (Protonix) 40 mg BIDWMEALS PO 07/11/20 08:00 07/17/20 17:11 Sucralfate (Carafate) 1 gm QIDACHS PO 07/10/20 21:00 07/17/20 20:16 Tamsulosin HCl (Flomax) 0.4 mg HS PO 07/10/20 21:00 07/17/20 20:16 Tramadol HCl (Ultram) 50 mg BID PO 07/10/20 21:00 07/17/20 20:16 Lactobacillus Rhamnosus (Culturelle) 1 cap BID PO 07/10/20 21:00 07/17/20 20:15 Glimepiride (Amaryl) 4 mg BIDWMEALS PO 07/11/20 08:00 07/17/20 17:11 Non-Formulary Medication (Glucagon,Human Recombinant (Glucagon Emergency Kit)) 1 mg PRN PRN IM HYPOGLYCEMIA 07/10/20 18:30 UNV Lactulose (Lactulose) 20 gm TID PO 07/10/20 21:00 07/17/20 20:15 Polyethylene Glycol (miraLAX) 17 gm DAILY PO 07/11/20 09:00 07/17/20 10:24 Non-Formulary Medication ([Abh Topical Cream] ) 0.5 ml Q6HRS PRN TOP AGITATION 07/10/20 18:30 07/11/20 07:18 DC Mirtazapine (Remeron) 7.5 mg QHS PO 07/13/20 21:00 07/14/20 18:47 DC 07/13/20 19:50 Divalproex Sodium (Depakote Sprinkles) 125 mg BID@0900,1700 PO 07/14/20 09:00 07/17/20 17:11 Trazodone HCl (Desyrel) 50 mg PRN QHS PRN PO INSOMNIA 07/13/20 21:45 07/16/20 22:34 Mirtazapine (Remeron) 15 mg QHS PO 07/14/20 21:00 07/17/20 20:15 Melatonin (Melatonin) 3 mg QHS PO 07/17/20 21:00 07/17/20 20:15 Current Medications Medications (Trade) Dose Ordered Sig/Michell Route PRN Reason Start Time Stop Time Status Last Admin Dose Admin Melatonin (Melatonin) 3 mg QHS PO 07/17/20 21:00 07/17/20 20:15 I have reviewed the current psychotropics carefully including drug interactions. Risk benefit ratio favors no change other than as noted in my dictated progress note. Diagnosis: Problems: (1) Impulse control disorder, unspecified (2) Anxiety disorder, unspecified (3) Dementia, vascular, with depression (4) Dementia, vascular, with delusions (5) Dementia in Alzheimer's disease with depression (6) Dementia in Alzheimer's disease with delusions (7) Dementia of the Alzheimer's type with early onset with behavioral disturbance (8) Major neurocognitive disorder ASIM SPANGLER MD July 18, 2020 09:29
[2020-07-18] MEDS: FERROUS SULFATE 325 MG TABLET. PO SCH ×3 (09:39→17:29)
[2020-07-18] MEDS: GABAPENTIN 100 MG CAPSULE. PO SCH ×4 (09:39→19:50)
[2020-07-18] MEDS: OLANZapine 5 MG TABLET PO SCH ×3 (09:39→19:51)
[2020-07-18] MEDS: LACTULOSE 20 GM/30 ML SOLUTION. PO SCH ×4 (09:39→19:52)
[2020-07-18] MEDS: CHOLECALCIFEROL (VITAMIN D3) 1,000 UNIT TABLET PO SCH ×2 (09:39→09:40)
[2020-07-18] MEDS: LACTOBACILLUS RHAMNOSUS GG 1 CAPSULE. PO SCH ×3 (09:39→19:52)
[2020-07-18] MEDS: FINASTERIDE 5 MG TABLET. PO SCH ×2 (09:39→09:40)
[2020-07-18] MEDS: SUCRALFATE 1 GM TABLET. PO SCH ×5 (09:39→19:50)
[2020-07-18] MEDS: ALLOPURINOL 100 MG TABLET. PO SCH ×3 (09:40→19:51)
[2020-07-18] MEDS: GLIMEPIRIDE 2 MG TABLET PO SCH ×3 (09:40→17:29)
[2020-07-18] MEDS: LISINOPRIL 10 MG TABLET PO SCH (09:40)
[2020-07-18] MEDS: METOPROLOL TART IMMED RELEASE 25 MG TABLET. PO SCH ×2 (09:40→09:42)
[2020-07-18] MEDS: POLYETHYLENE GLYCOL 3350 17 GM PACKET. PO SCH ×2 (09:40→09:42)
[2020-07-18] MEDS: traMADol 50 MG TABLET PO SCH ×3 (09:40→19:51)
[2020-07-18] MEDS: DIVALPROEX 125 MG CAP.SPRINK PO SCH ×3 (09:40→17:29)
[2020-07-18] MEDS: PANTOPRAZOLE 40 MG TABLET. PO SCH ×2 (09:40→17:29)
[2020-07-18 15:46] VITALS: BP 122/59
[2020-07-18] MEDS: [UNRECOGNIZED DRUG - OTHER] TP PRN ×2 (16:03→22:18)
--- NOTE | 2020-07-18 18:30 | NUR ---
Patient has been drowsy and confused through out this shift. He has occasionally been restless and attempts to get out of the [facility] unassisted. He spat out his morning medications. Patient continues on 1:1 for safety. Patient was more restless in the afternoon, prn medication provided per eMAR, will continue to monitor and report to oncoming shift.
[2020-07-18] MEDS: MIRTAZAPINE 15 MG TABLET PO SCH (19:51)
[2020-07-18] MEDS: MELATONIN 3 MG TABLET PO SCH (19:51)
[2020-07-18] MEDS: INSULIN GLARGINE SYRINGE. SQ SCH (19:51)
[2020-07-18] MEDS: TAMSULOSIN 0.4 MG CAP.ER.24H. PO SCH (19:52)
[2020-07-18] MEDS: traZODone 50 MG TABLET. PO PRN (22:18)
--- NOTE | 2020-07-18 22:18 | PDOC ---
Exam Note: Harshil Note: Please also refer to the separate dictated note~for this date of service dictated separately.~Patient seen individually. Discussed the patient with Nursing staff reviewed the chart.~Reviewed interim history and current functioning. Reviewed vital signs,~Labs/ Radiology~and current medications noted below. Continue current treatment with the changes noted in the dictated addendum note Assessment: Vital Signs/I&O: Vital Signs Date Time Temp Pulse Resp B/P (MAP) Pulse Ox O2 Delivery O2 Flow Rate FiO2 07/18/20 19:51 18 95 Room Air 07/18/20 15:46 97.8 112 122/59 (80) I & O 07/17/20 07/17/20 07/18/20 15:00 23:00 07:00 Intake Total 120 ml 360 ml Output Total 300 ml Balance 120 ml 360 ml -300 ml Labs: Laboratory Tests Test 07/18/20 07:32 07/18/20 11:01 07/18/20 15:59 07/18/20 19:12 Glucose (Fingerstick) 125 mg/dL (70-99) H 152 mg/dL (70-99) H 373 mg/dL (70-99) H 493 mg/dL (70-99) H Current Medications: Meds: Laboratory Tests Test 07/18/20 07:32 07/18/20 11:01 07/18/20 15:59 07/18/20 19:12 Glucose (Fingerstick) 125 mg/dL 152 mg/dL 373 mg/dL 493 mg/dL Current Medications Medications (Trade) Dose Ordered Sig/Michell Route PRN Reason Start Time Stop Time Status Last Admin Dose Admin Non-Formulary Medication (Non Formulary Item (Hvlwq-Dvjnba-Oawhd)) 1 ea PRN Q6HRS PRN TP AGITATION 07/10/20 17:15 07/18/20 16:03 Acetaminophen (Tylenol) 650 mg PRN Q6HRS PRN PO MILD PAIN / TEMP > 100.3'F 07/10/20 18:30 Multi-Ingredient Ointment (Analgesic [place]) 1 loyd PRN QID PRN TP MUSCLE PAIN 07/10/20 18:30 Al Hydroxide/Mg Hydroxide (Mylanta Plus Xs) 15 ml PRN AFTMEALHC PRN PO DYSPEPSIA 07/10/20 18:30 Magnesium Hydroxide (Milk Of Magnesia) 2,400 mg PRN QHS PRN PO CONSTIPATION 07/10/20 18:30 Allopurinol (Zyloprim) 100 mg BID PO 07/10/20 21:00 07/18/20 19:51 Vitamin D (Vitamin D3) 1,000 unit DAILY PO 07/11/20 09:00 07/17/20 10:24 Glucose (Insta-Glucose) 15 gm PRN Q15MIN PRN PO HYPOGLYCEMIA 07/10/20 18:30 Dextrose (Dextrose 50%-Water Syringe) 25 gm PRN Q15MIN PRN IV HYPOGLYCEMIA 07/10/20 18:30 Ferrous Sulfate (Feosol) 325 mg BIDWMEALS PO 07/11/20 08:00 07/18/20 17:29 Finasteride (Proscar) 5 mg DAILY PO 07/11/20 09:00 07/17/20 10:24 Gabapentin (Neurontin) 100 mg TID PO 07/10/20 21:00 07/18/20 19:50 Insulin Glargine (Lantus Syringe) 30 unit HS SQ 07/10/20 21:00 07/18/20 19:51 Insulin Human Lispro (HumaLOG) 5 units TIDWMEALS PRN SQ FSBS GREATER THAN 400 07/10/20 18:45 Lisinopril (Prinivil) 10 mg DAILY PO 07/11/20 09:00 07/17/20 10:26 Metoprolol Tartrate (Lopressor) 25 mg DAILY PO 07/11/20 09:00 07/17/20 10:25 Olanzapine (ZyPREXA) 5 mg BID PO 07/10/20 21:00 07/18/20 19:51 Ondansetron HCl (Zofran Odt) 4 mg PRN Q8HRS PRN PO NAUSEA 07/10/20 18:30 Pantoprazole Sodium (Protonix) 40 mg BIDWMEALS PO 07/11/20 08:00 07/18/20 17:29 Sucralfate (Carafate) 1 gm QIDACHS PO 07/10/20 21:00 07/18/20 19:50 Tamsulosin HCl (Flomax) 0.4 mg HS PO 07/10/20 21:00 07/18/20 19:52 Tramadol HCl (Ultram) 50 mg BID PO 07/10/20 21:00 07/18/20 19:51 Lactobacillus Rhamnosus (Culturelle) 1 cap BID PO 07/10/20 21:00 07/18/20 19:52 Glimepiride (Amaryl) 4 mg BIDWMEALS PO 07/11/20 08:00 07/18/20 17:29 Non-Formulary Medication (Glucagon,Human Recombinant (Glucagon Emergency Kit)) 1 mg PRN PRN IM HYPOGLYCEMIA 07/10/20 18:30 UNV Lactulose (Lactulose) 20 gm TID PO 07/10/20 21:00 07/18/20 19:52 Polyethylene Glycol (miraLAX) 17 gm DAILY PO 07/11/20 09:00 07/17/20 10:24 Non-Formulary Medication ([Abh Topical Cream] ) 0.5 ml Q6HRS PRN TOP AGITATION 07/10/20 18:30 07/11/20 07:18 DC Mirtazapine (Remeron) 7.5 mg QHS PO 07/13/20 21:00 07/14/20 18:47 DC 07/13/20 19:50 Divalproex Sodium (Depakote Sprinkles) 125 mg BID@0900,1700 PO 07/14/20 09:00 07/18/20 18:49 DC 07/18/20 17:29 Trazodone HCl (Desyrel) 50 mg PRN QHS PRN PO INSOMNIA 07/13/20 21:45 07/16/20 22:34 Mirtazapine (Remeron) 15 mg QHS PO 07/14/20 21:00 07/18/20 19:51 Melatonin (Melatonin) 3 mg QHS PO 07/17/20 21:00 07/18/20 19:51 Divalproex Sodium (Depakote Sprinkles) 250 mg BID@0900,1700 PO 07/19/20 09:00 Sertraline HCl (Zoloft) 25 mg DAILY PO 07/19/20 09:00 07/21/20 23:50 Sertraline HCl (Zoloft) 50 mg DAILY PO 07/22/20 09:00 I have reviewed the current psychotropics carefully including drug interactions. Risk benefit ratio favors no change other than as noted in my dictated progress note. Diagnosis: Problems: (1) Impulse control disorder, unspecified (2) Anxiety disorder, unspecified (3) Dementia, vascular, with depression (4) Dementia, vascular, with delusions (5) Dementia in Alzheimer's disease with depression (6) Dementia in Alzheimer's disease with delusions (7) Dementia of the Alzheimer's type with early onset with behavioral distur bance (8) Major neurocognitive disorder ASIM SPANGLER MD July 18, 2020 22:17
--- NOTE | 2020-07-18 22:58 | NUR ---
pt and roommate became agitated with one another while trying to sleep. pt was moved to quit room and given prn medication as ordered. will continue to monitor.
[2020-07-19 06:30] VITALS: BP 103/63
--- NOTE | 2020-07-19 07:20 | PDOC ---
Exam Note: Harshil Note: This note is a late entry for 07/18/2020 covers elements not covered in my initial note. Subjective: The patient was seen individually in the evening of 07/18/2020 with Jeovany GLOVER, discussed and reviewed the chart. The patient slept 8 hours previous night. He has been restless, trying to get out of the Broda. He resents drinking thickened liquids and was able to express this quite clearly to me this evening. He has received Ativan, Benadryl, Haldol, topical cream at 3 p.m. due to agitation. Valproic acid level subtherapeutic at 11 on Depakote 125 mg twice a day. We will increase Depakote to 250 mg twice a day. Check labs level in 3 days and start Zoloft 25 mg a day for 3 days and 50 mg a day. Review of Systems: Ambulation impaired in Broda chair. No CV, , pulmonary, eye, ENT system symptoms on review. Reliability poor. Mental Status Exam: The patient is oriented to himself. Insight and judgment, recent and remote memory, attention and concentration, fund of knowledge is poor consistent with his diagnoses. Laboratory Data: Reviewed. Impression: Major neurocognitive disorder Alzheimer vascular with delusion, depression, behavioral disturbance. Anxiety disorder unspecified. Impulse control disorder unspecified. Plan: No change from initial note. Assessment: Vital Signs/I&O: Vital Signs Date Time Temp Pulse Resp B/P (MAP) Pulse Ox O2 Delivery O2 Flow Rate FiO2 07/19/20 06:30 98.3 108 16 103/63 (76) 91 07/18/20 20:21 Room Air I & O 07/18/20 07/18/20 07/19/20 15:00 23:00 07:00 Intake Total 100 ml 1120 ml Output Total 350 ml Balance 100 ml 770 ml Labs: Laboratory Tests Test 07/18/20 07:32 07/18/20 11:01 07/18/20 15:59 07/18/20 19:12 Glucose (Fingerstick) 125 mg/dL (70-99) H 152 mg/dL (70-99) H 373 mg/dL (70-99) H 493 mg/dL (70-99) H Current Medications: Meds: Laboratory Tests Test 07/18/20 07:32 07/18/20 11:01 07/18/20 15:59 07/18/20 19:12 Glucose (Fingerstick) 125 mg/dL 152 mg/dL 373 mg/dL 493 mg/dL Current Medications Medications (Trade) Dose Ordered Sig/Michell Route PRN Reason Start Time Stop Time Status Last Admin Dose Admin Non-Formulary Medication (Non Formulary Item (Ltipz-Ucbfjt-Jvlmd)) 1 ea PRN Q6HRS PRN TP AGITATION 07/10/20 17:15 07/18/20 22:18 Acetaminophen (Tylenol) 650 mg PRN Q6HRS PRN PO MILD PAIN / TEMP > 100.3'F 07/10/20 18:30 Multi-Ingredient Ointment (Analgesic [place]) 1 loyd PRN QID PRN TP MUSCLE PAIN 07/10/20 18:30 Al Hydroxide/Mg Hydroxide (Mylanta Plus Xs) 15 ml PRN AFTMEALHC PRN PO DYSPEPSIA 07/10/20 18:30 Magnesium Hydroxide (Milk Of Magnesia) 2,400 mg PRN QHS PRN PO CONSTIPATION 07/10/20 18:30 Allopurinol (Zyloprim) 100 mg BID PO 07/10/20 21:00 07/18/20 19:51 Vitamin D (Vitamin D3) 1,000 unit DAILY PO 07/11/20 09:00 07/17/20 10:24 Glucose (Insta-Glucose) 15 gm PRN Q15MIN PRN PO HYPOGLYCEMIA 07/10/20 18:30 Dextrose (Dextrose 50%-Water Syringe) 25 gm PRN Q15MIN PRN IV HYPOGLYCEMIA 07/10/20 18:30 Ferrous Sulfate (Feosol) 325 mg BIDWMEALS PO 07/11/20 08:00 07/18/20 17:29 Finasteride (Proscar) 5 mg DAILY PO 07/11/20 09:00 07/17/20 10:24 Gabapentin (Neurontin) 100 mg TID PO 07/10/20 21:00 07/18/20 19:50 Insulin Glargine (Lantus Syringe) 30 unit HS SQ 07/10/20 21:00 07/18/20 19:51 Insulin Human Lispro (HumaLOG) 5 units TIDWMEALS PRN SQ FSBS GREATER THAN 400 07/10/20 18:45 Lisinopril (Prinivil) 10 mg DAILY PO 07/11/20 09:00 07/17/20 10:26 Metoprolol Tartrate (Lopressor) 25 mg DAILY PO 07/11/20 09:00 07/17/20 10:25 Olanzapine (ZyPREXA) 5 mg BID PO 07/10/20 21:00 07/18/20 19:51 Ondansetron HCl (Zofran Odt) 4 mg PRN Q8HRS PRN PO NAUSEA 07/10/20 18:30 Pantoprazole Sodium (Protonix) 40 mg BIDWMEALS PO 07/11/20 08:00 07/18/20 17:29 Sucralfate (Carafate) 1 gm QIDACHS PO 07/10/20 21:00 07/18/20 19:50 Tamsulosin HCl (Flomax) 0.4 mg HS PO 07/10/20 21:00 07/18/20 19:52 Tramadol HCl (Ultram) 50 mg BID PO 07/10/20 21:00 07/18/20 19:51 Lactobacillus Rhamnosus (Culturelle) 1 cap BID PO 07/10/20 21:00 07/18/20 19:52 Glimepiride (Amaryl) 4 mg BIDWMEALS PO 07/11/20 08:00 07/18/20 17:29 Non-Formulary Medication (Glucagon,Human Recombinant (Glucagon Emergency Kit)) 1 mg PRN PRN IM HYPOGLYCEMIA 07/10/20 18:30 UNV Lactulose (Lactulose) 20 gm TID PO 07/10/20 21:00 07/18/20 19:52 Polyethylene Glycol (miraLAX) 17 gm DAILY PO 07/11/20 09:00 07/17/20 10:24 Non-Formulary Medication ([Abh Topical Cream] ) 0.5 ml Q6HRS PRN TOP AGITATION 07/10/20 18:30 07/11/20 07:18 DC Mirtazapine (Remeron) 7.5 mg QHS PO 07/13/20 21:00 07/14/20 18:47 DC 07/13/20 19:50 Divalproex Sodium (Depakote Sprinkles) 125 mg BID@0900,1700 PO 07/14/20 09:00 07/18/20 18:49 DC 07/18/20 17:29 Trazodone HCl (Desyrel) 50 mg PRN QHS PRN PO INSOMNIA 07/13/20 21:45 07/18/20 22:18 Mirtazapine (Remeron) 15 mg QHS PO 07/14/20 21:00 07/18/20 19:51 Melatonin (Melatonin) 3 mg QHS PO 07/17/20 21:00 07/18/20 19:51 Divalproex Sodium (Depakote Sprinkles) 250 mg BID@0900,1700 PO 07/19/20 09:00 Sertraline HCl (Zoloft) 25 mg DAILY PO 07/19/20 09:00 07/21/20 23:50 Sertraline HCl (Zoloft) 50 mg DAILY PO 07/22/20 09:00 I have reviewed the current psychotropics carefully including drug interactions. Risk benefit ratio favors no change other than as noted in my dictated progress note. Diagnosis: Problems: (1) Impulse control disorder, unspecified (2) Anxiety disorder, unspecified (3) Dementia, vascular, with depression (4) Dementia, vascular, with delusions (5) Dementia in Alzheimer's disease with depression (6) Dementia in Alzheimer's disease with delusions (7) Dementia of the Alzheimer's type with early onset with behavioral disturb ance (8) Major neurocognitive disorder ASIM SPANGLER MD July 19, 2020 07:20
[2020-07-19] MEDS: SUCRALFATE 1 GM TABLET. PO SCH ×4 (07:30→19:42)
[2020-07-19] MEDS: GLIMEPIRIDE 2 MG TABLET PO SCH ×2 (08:00→17:15)
[2020-07-19] MEDS: PANTOPRAZOLE 40 MG TABLET. PO SCH ×2 (08:00→17:15)
[2020-07-19] MEDS: FERROUS SULFATE 325 MG TABLET. PO SCH ×2 (08:00→17:15)
[2020-07-19] MEDS: LACTOBACILLUS RHAMNOSUS GG 1 CAPSULE. PO SCH ×2 (08:57→19:42)
[2020-07-19] MEDS: METOPROLOL TART IMMED RELEASE 25 MG TABLET. PO SCH (08:58)
[2020-07-19] MEDS: FINASTERIDE 5 MG TABLET. PO SCH (08:59)
[2020-07-19] MEDS: LISINOPRIL 10 MG TABLET PO SCH (08:59)
[2020-07-19] MEDS: traMADol 50 MG TABLET PO SCH ×2 (08:59→19:41)
[2020-07-19] MEDS: POLYETHYLENE GLYCOL 3350 17 GM PACKET. PO SCH (08:59)
[2020-07-19] MEDS: DIVALPROEX 125 MG CAP.SPRINK PO SCH ×2 (09:00→17:16)
[2020-07-19] MEDS: SERTRALINE 25 MG TABLET. PO SCH (09:00)
[2020-07-19] MEDS: LACTULOSE 20 GM/30 ML SOLUTION. PO SCH ×3 (09:00→19:43)
[2020-07-19] MEDS: GABAPENTIN 100 MG CAPSULE. PO SCH ×3 (09:00→19:42)
[2020-07-19] MEDS: OLANZapine 5 MG TABLET PO SCH ×2 (09:00→19:40)
[2020-07-19] MEDS: ALLOPURINOL 100 MG TABLET. PO SCH ×2 (09:00→19:40)
[2020-07-19] MEDS: CHOLECALCIFEROL (VITAMIN D3) 1,000 UNIT TABLET PO SCH (09:00)
--- NOTE | 2020-07-19 09:01 | NUR ---
Patient is very drowsy at this time. Attempts to feed him result in him chewing the food with his eyes closed and then holding food in his mouth until prompted to swallow. Will hold morning meds and continue to monitor.
--- NOTE | 2020-07-19 14:55 | NUR ---
Patient has been less drowsy with periods of being more alert. He still has shown little appetite at lunch. Will continue to monitor and report to oncoming shift.
[2020-07-19 16:12] VITALS: BP 118/70
--- NOTE | 2020-07-19 18:00 | NUR ---
Patient increasingly agitated and calling out 'Tiffanie' while pulling on his Dash. PRN medication provided per kd Martinez applied; will continue to monitor and report to MD during rounds.
[2020-07-19] MEDS: [UNRECOGNIZED DRUG - OTHER] TP PRN (18:03)
[2020-07-19] MEDS: traZODone 50 MG TABLET. PO PRN (19:42)
[2020-07-19] MEDS: MIRTAZAPINE 15 MG TABLET PO SCH (19:48)
[2020-07-19] MEDS: TAMSULOSIN 0.4 MG CAP.ER.24H. PO SCH (19:48)
[2020-07-19] MEDS: MELATONIN 3 MG TABLET PO SCH (19:48)
[2020-07-19] MEDS: INSULIN GLARGINE SYRINGE. SQ SCH (21:00)
--- NOTE | 2020-07-19 22:18 | PDOC ---
Exam Note: Harshil Note: Please also refer to the separate dictated note~for this date of service dictated separately.~Patient seen individually. Discussed the patient with Nursing staff reviewed the chart.~Reviewed interim history and current functioning. Reviewed vital signs,~Labs/ Radiology~and current medications noted below. Continue current treatment with the changes noted in the dictated addendum note Assessment: Vital Signs/I&O: Vital Signs Date Time Temp Pulse Resp B/P (MAP) Pulse Ox O2 Delivery O2 Flow Rate FiO2 07/19/20 20:11 97 07/19/20 16:12 97.9 90 18 118/70 (86) 07/19/20 08:59 Room Air I & O 07/18/20 07/18/20 07/19/20 15:00 23:00 07:00 Intake Total 100 ml 1120 ml Output Total 350 ml Balance 100 ml 770 ml Labs: Laboratory Tests Test 07/19/20 08:05 07/19/20 11:10 07/19/20 16:30 Glucose (Fingerstick) 199 mg/dL (70-99) H 180 mg/dL (70-99) H 309 mg/dL (70-99) H Current Medications: Meds: Laboratory Tests Test 07/19/20 08:05 07/19/20 11:10 07/19/20 16:30 Glucose (Fingerstick) 199 mg/dL 180 mg/dL 309 mg/dL Current Medications Medications (Trade) Dose Ordered Sig/Michell Route PRN Reason Start Time Stop Time Status Last Admin Dose Admin Non-Formulary Medication (Non Formulary Item (Poixu-Ctwjfa-Plaox)) 1 ea PRN Q6HRS PRN TP AGITATION 07/10/20 17:15 07/19/20 18:03 Acetaminophen (Tylenol) 650 mg PRN Q6HRS PRN PO MILD PAIN / TEMP > 100.3'F 07/10/20 18:30 Multi-Ingredient Ointment (Analgesic [place]) 1 loyd PRN QID PRN TP MUSCLE PAIN 07/10/20 18:30 Al Hydroxide/Mg Hydroxide (Mylanta Plus Xs) 15 ml PRN AFTMEALHC PRN PO DYSPEPSIA 07/10/20 18:30 Magnesium Hydroxide (Milk Of Magnesia) 2,400 mg PRN QHS PRN PO CONSTIPATION 07/10/20 18:30 Allopurinol (Zyloprim) 100 mg BID PO 07/10/20 21:00 07/19/20 19:40 Vitamin D (Vitamin D3) 1,000 unit DAILY PO 07/11/20 09:00 07/17/20 10:24 Glucose (Insta-Glucose) 15 gm PRN Q15MIN PRN PO HYPOGLYCEMIA 07/10/20 18:30 Dextrose (Dextrose 50%-Water Syringe) 25 gm PRN Q15MIN PRN IV HYPOGLYCEMIA 07/10/20 18:30 Ferrous Sulfate (Feosol) 325 mg BIDWMEALS PO 07/11/20 08:00 07/19/20 17:15 Finasteride (Proscar) 5 mg DAILY PO 07/11/20 09:00 07/17/20 10:24 Gabapentin (Neurontin) 100 mg TID PO 07/10/20 21:00 07/19/20 19:42 Insulin Glargine (Lantus Syringe) 30 unit HS SQ 07/10/20 21:00 07/19/20 21:00 Insulin Human Lispro (HumaLOG) 5 units TIDWMEALS PRN SQ FSBS GREATER THAN 400 07/10/20 18:45 Lisinopril (Prinivil) 10 mg DAILY PO 07/11/20 09:00 07/17/20 10:26 Metoprolol Tartrate (Lopressor) 25 mg DAILY PO 07/11/20 09:00 07/17/20 10:25 Olanzapine (ZyPREXA) 5 mg BID PO 07/10/20 21:00 07/19/20 19:40 Ondansetron HCl (Zofran Odt) 4 mg PRN Q8HRS PRN PO NAUSEA 07/10/20 18:30 Pantoprazole Sodium (Protonix) 40 mg BIDWMEALS PO 07/11/20 08:00 07/19/20 17:15 Sucralfate (Carafate) 1 gm QIDACHS PO 07/10/20 21:00 07/19/20 19:42 Tamsulosin HCl (Flomax) 0.4 mg HS PO 07/10/20 21:00 07/19/20 19:48 Tramadol HCl (Ultram) 50 mg BID PO 07/10/20 21:00 07/19/20 19:41 Lactobacillus Rhamnosus (Culturelle) 1 cap BID PO 07/10/20 21:00 07/19/20 19:42 Glimepiride (Amaryl) 4 mg BIDWMEALS PO 07/11/20 08:00 07/19/20 17:15 Non-Formulary Medication (Glucagon,Human Recombinant (Glucagon Emergency Kit)) 1 mg PRN PRN IM HYPOGLYCEMIA 07/10/20 18:30 UNV Lactulose (Lactulose) 20 gm TID PO 07/10/20 21:00 07/19/20 19:43 Polyethylene Glycol (miraLAX) 17 gm DAILY PO 07/11/20 09:00 07/17/20 10:24 Non-Formulary Medication ([Abh Topical Cream] ) 0.5 ml Q6HRS PRN TOP AGITATION 07/10/20 18:30 07/11/20 07:18 DC Mirtazapine (Remeron) 7.5 mg QHS PO 07/13/20 21:00 07/14/20 18:47 DC 07/13/20 19:50 Divalproex Sodium (Depakote Sprinkles) 125 mg BID@0900,1700 PO 07/14/20 09:00 07/18/20 18:49 DC 07/18/20 17:29 Trazodone HCl (Desyrel) 50 mg PRN QHS PRN PO INSOMNIA 07/13/20 21:45 07/19/20 19:42 Mirtazapine (Remeron) 15 mg QHS PO 07/14/20 21:00 07/19/20 19:48 Melatonin (Melatonin) 3 mg QHS PO 07/17/20 21:00 07/19/20 19:48 Divalproex Sodium (Depakote Sprinkles) 250 mg BID@0900,1700 PO 07/19/20 09:00 07/19/20 17:16 Sertraline HCl (Zoloft) 25 mg DAILY PO 07/19/20 09:00 07/21/20 23:50 Sertraline HCl (Zoloft) 50 mg DAILY PO 07/22/20 09:00 Current Medications Medications (Trade) Dose Ordered Sig/Michell Route PRN Reason Start Time Stop Time Status Last Admin Dose Admin Divalproex Sodium (Depakote Sprinkles) 250 mg BID@0900,1700 PO 07/19/20 09:00 07/19/20 17:16 I have reviewed the current psychotropics carefully including drug interactions. Risk benefit ratio favors no change other than as noted in my dictated progress note. Diagnosis: Problems: (1) Impulse control disorder, unspecified (2) Anxiety disorder, unspecified (3) Dementia, vascular, with depression (4) Dementia, vascular, with delusions (5) Dementia in Alzheimer's disease with depression (6) Dementia in Alzheimer's disease with delusions (7) Dementia of the Alzheimer's type with early onset with behavioral disturbance (8) Major neurocognitive disorder ASIM SPANGLER MD July 19, 2020 22:18
[2020-07-20 06:19] VITALS: BP 100/67
[2020-07-20] MEDS: FERROUS SULFATE 325 MG TABLET. PO SCH ×2 (07:45→17:38)
[2020-07-20] MEDS: LISINOPRIL 10 MG TABLET PO SCH (07:45)
[2020-07-20] MEDS: ALLOPURINOL 100 MG TABLET. PO SCH ×2 (07:45→20:20)
[2020-07-20] MEDS: traMADol 50 MG TABLET PO SCH ×2 (07:46→20:20)
[2020-07-20] MEDS: METOPROLOL TART IMMED RELEASE 25 MG TABLET. PO SCH (07:46)
[2020-07-20] MEDS: GLIMEPIRIDE 2 MG TABLET PO SCH ×2 (07:46→17:38)
[2020-07-20] MEDS: FINASTERIDE 5 MG TABLET. PO SCH (07:47)
[2020-07-20] MEDS: CHOLECALCIFEROL (VITAMIN D3) 1,000 UNIT TABLET PO SCH (07:47)
[2020-07-20] MEDS: POLYETHYLENE GLYCOL 3350 17 GM PACKET. PO SCH (07:47)
[2020-07-20] MEDS: LACTULOSE 20 GM/30 ML SOLUTION. PO SCH ×3 (07:47→20:19)
[2020-07-20] MEDS: GABAPENTIN 100 MG CAPSULE. PO SCH ×3 (07:47→20:20)
[2020-07-20] MEDS: DIVALPROEX 125 MG CAP.SPRINK PO SCH ×2 (07:47→17:38)
[2020-07-20] MEDS: OLANZapine 5 MG TABLET PO SCH ×2 (07:47→20:20)
[2020-07-20] MEDS: LACTOBACILLUS RHAMNOSUS GG 1 CAPSULE. PO SCH ×2 (07:47→20:20)
[2020-07-20] MEDS: SERTRALINE 25 MG TABLET. PO SCH (07:47)
[2020-07-20] MEDS: PANTOPRAZOLE 40 MG TABLET. PO SCH ×2 (07:47→17:38)
[2020-07-20] MEDS: SUCRALFATE 1 GM TABLET. PO SCH ×4 (07:47→20:20)
[2020-07-20] MEDS: [UNRECOGNIZED DRUG - OTHER] TP PRN (10:30)
--- NOTE | 2020-07-20 13:12 | NUR ---
WEEKLY ACTIVITY THERAPY NOTE Date of Admission: 07/10/20 Date of AT Assessment: 07/13 Precipitating behaviors that initiated intake and admission: agitation and aggression Goal aimed: increase stress management and relaxation skills Initial Goal: Pt will participate in at least three individual or group Activity Therapy sessions before discharge. Weekly progress towards goal: did not achieve, 0/3 Group participation level: none Weekly highlights: Behaviors observed: trying to stand from wheelchair Sunday, trying to get up from broda Sunday, very restless, unable to follow directions or commands Plan: no change to goal Beneficial adaptations:
[2020-07-20 15:58] VITALS: BP 131/69
--- NOTE | 2020-07-20 18:30 | NUR ---
Patient was calm, compliant, pleasantly confused throughout most of this shift. Patient was increasingly agitated in the morning; prn provided per eMAR. Patient more alert today and answering questions about his past appropriately. Per MD order, Dash catheter removed, patient tolerated procedure well. Will continue to monitor and report to oncoming shift.
[2020-07-20] MEDS: MIRTAZAPINE 15 MG TABLET PO SCH (20:19)
[2020-07-20] MEDS: TAMSULOSIN 0.4 MG CAP.ER.24H. PO SCH (20:19)
[2020-07-20] MEDS: MELATONIN 3 MG TABLET PO SCH (20:19)
[2020-07-20] MEDS: INSULIN GLARGINE SYRINGE. SQ SCH (21:00)
--- NOTE | 2020-07-20 21:58 | PDOC ---
Exam Note: Harshil Note: Please also refer to the separate dictated note~for this date of service dictated separately.~Patient seen individually. Discussed the patient with Nursing staff reviewed the chart.~Reviewed interim history and current functioning. Reviewed vital signs,~Labs/ Radiology~and current medications noted below. Continue current treatment with the changes noted in the dictated addendum note Assessment: Vital Signs/I&O: Vital Signs Date Time Temp Pulse Resp B/P (MAP) Pulse Ox O2 Delivery O2 Flow Rate FiO2 07/20/20 15:58 97.3 81 18 131/69 (89) 96 07/20/20 08:20 Room Air I & O 07/19/20 07/19/20 07/20/20 15:00 23:00 07:00 Intake Total 240 ml 600 ml Output Total 375 ml Balance 240 ml 225 ml Labs: Laboratory Tests Test 07/20/20 07:18 07/20/20 11:32 07/20/20 16:42 07/20/20 19:24 Glucose (Fingerstick) 144 mg/dL (70-99) H 258 mg/dL (70-99) H 369 mg/dL (70-99) H 305 mg/dL (70-99) H Current Medications: Meds: Laboratory Tests Test 07/20/20 07:18 07/20/20 11:32 07/20/20 16:42 07/20/20 19:24 Glucose (Fingerstick) 144 mg/dL 258 mg/dL 369 mg/dL 305 mg/dL Current Medications Medications (Trade) Dose Ordered Sig/Michell Route PRN Reason Start Time Stop Time Status Last Admin Dose Admin Non-Formulary Medication (Non Formulary Item (Tppdc-Phnwca-Vbbjj)) 1 ea PRN Q6HRS PRN TP AGITATION 07/10/20 17:15 07/20/20 10:30 Acetaminophen (Tylenol) 650 mg PRN Q6HRS PRN PO MILD PAIN / TEMP > 100.3'F 07/10/20 18:30 Multi-Ingredient Ointment (Analgesic [place]) 1 loyd PRN QID PRN TP MUSCLE PAIN 07/10/20 18:30 Al Hydroxide/Mg Hydroxide (Mylanta Plus Xs) 15 ml PRN AFTMEALHC PRN PO DYSPEPSIA 07/10/20 18:30 Magnesium Hydroxide (Milk Of Magnesia) 2,400 mg PRN QHS PRN PO CONSTIPATION 07/10/20 18:30 Allopurinol (Zyloprim) 100 mg BID PO 07/10/20 21:00 07/20/20 20:20 Vitamin D (Vitamin D3) 1,000 unit DAILY PO 07/11/20 09:00 07/20/20 07:47 Glucose (Insta-Glucose) 15 gm PRN Q15MIN PRN PO HYPOGLYCEMIA 07/10/20 18:30 Dextrose (Dextrose 50%-Water Syringe) 25 gm PRN Q15MIN PRN IV HYPOGLYCEMIA 07/10/20 18:30 Ferrous Sulfate (Feosol) 325 mg BIDWMEALS PO 07/11/20 08:00 07/20/20 17:38 Finasteride (Proscar) 5 mg DAILY PO 07/11/20 09:00 07/20/20 07:47 Gabapentin (Neurontin) 100 mg TID PO 07/10/20 21:00 07/20/20 20:20 Insulin Glargine (Lantus Syringe) 30 unit HS SQ 07/10/20 21:00 07/20/20 21:00 Insulin Human Lispro (HumaLOG) 5 units TIDWMEALS PRN SQ FSBS GREATER THAN 400 07/10/20 18:45 Lisinopril (Prinivil) 10 mg DAILY PO 07/11/20 09:00 07/20/20 07:45 Metoprolol Tartrate (Lopressor) 25 mg DAILY PO 07/11/20 09:00 07/20/20 07:46 Olanzapine (ZyPREXA) 5 mg BID PO 07/10/20 21:00 07/20/20 20:20 Ondansetron HCl (Zofran Odt) 4 mg PRN Q8HRS PRN PO NAUSEA 07/10/20 18:30 Pantoprazole Sodium (Protonix) 40 mg BIDWMEALS PO 07/11/20 08:00 07/20/20 17:38 Sucralfate (Carafate) 1 gm QIDACHS PO 07/10/20 21:00 07/20/20 20:20 Tamsulosin HCl (Flomax) 0.4 mg HS PO 07/10/20 21:00 07/20/20 20:19 Tramadol HCl (Ultram) 50 mg BID PO 07/10/20 21:00 6/1/21 20:20 Lactobacillus Rhamnosus (Culturelle) 1 cap BID PO 07/10/20 21:00 07/20/20 20:20 Glimepiride (Amaryl) 4 mg BIDWMEALS PO 07/11/20 08:00 07/20/20 17:38 Non-Formulary Medication (Glucagon,Human Recombinant (Glucagon Emergency Kit)) 1 mg PRN PRN IM HYPOGLYCEMIA 07/10/20 18:30 UNV Lactulose (Lactulose) 20 gm TID PO 07/10/20 21:00 07/20/20 20:19 Polyethylene Glycol (miraLAX) 17 gm DAILY PO 07/11/20 09:00 07/20/20 07:47 Non-Formulary Medication ([Abh Topical Cream] ) 0.5 ml Q6HRS PRN TOP AGITATION 07/10/20 18:30 07/11/20 07:18 DC Mirtazapine (Remeron) 7.5 mg QHS PO 07/13/20 21:00 07/14/20 18:47 DC 07/13/20 19:50 Divalproex Sodium (Depakote Sprinkles) 125 mg BID@0900,1700 PO 07/14/20 09:00 07/18/20 18:49 DC 07/18/20 17:29 Trazodone HCl (Desyrel) 50 mg PRN QHS PRN PO INSOMNIA 07/13/20 21:45 07/19/20 19:42 Mirtazapine (Remeron) 15 mg QHS PO 07/14/20 21:00 07/20/20 20:19 Melatonin (Melatonin) 3 mg QHS PO 07/17/20 21:00 07/20/20 20:19 Divalproex Sodium (Depakote Sprinkles) 250 mg BID@0900,1700 PO 07/19/20 09:00 07/20/20 17:38 Sertraline HCl (Zoloft) 25 mg DAILY PO 07/19/20 09:00 07/21/20 23:50 07/20/20 07:47 Sertraline HCl (Zoloft) 50 mg DAILY PO 07/22/20 09:00 I have reviewed the current psychotropics carefully including drug interactions. Risk benefit ratio favors no change other than as noted in my dictated progress note. Diagnosis: Problems: (1) Impulse control disorder, unspecified (2) Anxiety disorder, unspecified (3) Dementia, vascular, with depression (4) Dementia, vascular, with delusions (5) Dementia in Alzheimer's disease with depression (6) Dementia in Alzheimer's disease with delusions (7) Dementia of the Alzheimer's type with early onset with behavioral disturbance (8) Major neurocognitive disorder ASIM SPANGLER MD Jul 20, 2020 21:58
--- NOTE | 2020-07-20 23:28 | NUR ---
PATIENT IN BRODA CHAIR AND REMAINS 1:1 FOR SAFETY. PATIENT IS COMPLIANT WITH MEDICATIONS GIVEN CRUSHED IN [place] PUDDING. PATIENT RESTLESS AND ATTEMPTING TO GET OUT OF CHAIR. DANIELLE WAS REMOVED ON THE DAYSHIFT BY Yesica LOPES RN, WE ARE MONITORING FOR URINE OUTPUT.
--- NOTE | 2020-07-21 05:57 | NUR ---
PATIENT DID NOT URINATE OVERNIGHT. BLADDER SCANNED PATIENT AT 0545 AND HE ONLY HAD 221 ML IN BLADDER. DANIELLE HAD BEEN REMOVED 07/20 1844. WILL PASS ON IN REPORT.
[2020-07-21 06:18] VITALS: BP 113/66
--- NOTE | 2020-07-21 07:16 | PDOC ---
Exam Note: Harshil Note: This note is a late entry for 07/19/2020 covers elements not covered in my initial note. Subjective: The patient was seen individually in the evening of 07/19/2020 with Jeovany GLOVER, discussed and reviewed the chart. The patient slept 3-3/4 hours previous night. He is on one-on-one status. Previous evening he was agitated, calling out repeatedly pulling on things, tried to pull out his Foleys. UA has reflex to culture. We will defer to Dr. Alexanedr. Review of Systems: Ambulation impaired in Broda chair. No CV, , pulmonary, eye, ENT system symptoms on review. Reliability poor. Mental Status Exam: The patient is oriented to himself. He is anxious, restless, constantly moving. Insight and judgment, recent and remote memory, attention and concentration, fund of knowledge is poor consistent with his diagnoses. Laboratory Data: Reviewed. Impression: Major neurocognitive disorder Alzheimer vascular with delusion, depression, behavioral disturbance. Anxiety disorder unspecified. Impulse control disorder unspecified. Plan: No change from initial note. Assessment: Vital Signs/I&O: Vital Signs Date Time Temp Pulse Resp B/P (MAP) Pulse Ox O2 Delivery O2 Flow Rate FiO2 07/21/20 06:18 97.4 71 15 113/66 (82) 93 Room Air I & O 07/20/20 07/20/20 07/21/20 15:00 23:00 07:00 Intake Total 960 ml 480 ml 120 ml Output Total 425 ml Balance 960 ml 55 ml 120 ml Labs: Laboratory Tests Test 07/20/20 07:18 07/20/20 11:32 07/20/20 16:42 07/20/20 19:24 Glucose (Fingerstick) 144 mg/dL (70-99) H 258 mg/dL (70-99) H 369 mg/dL (70-99) H 305 mg/dL (70-99) H Test 07/21/20 07:13 Glucose (Fingerstick) 102 mg/dL (70-99) H Current Medications: Meds: Laboratory Tests Test 07/20/20 07:18 07/20/20 11:32 07/20/20 16:42 07/20/20 19:24 Glucose (Fingerstick) 144 mg/dL 258 mg/dL 369 mg/dL 305 mg/dL Test 07/21/20 07:13 Glucose (Fingerstick) 102 mg/dL Current Medications Medications (Trade) Dose Ordered Sig/Michell Route PRN Reason Start Time Stop Time Status Last Admin Dose Admin Non-Formulary Medication (Non Formulary Item (Vdwkm-Akscch-Lrznx)) 1 ea PRN Q6HRS PRN TP AGITATION 07/10/20 17:15 07/20/20 10:30 Acetaminophen (Tylenol) 650 mg PRN Q6HRS PRN PO MILD PAIN / TEMP > 100.3'F 07/10/20 18:30 Multi-Ingredient Ointment (Analgesic [place]) 1 loyd PRN QID PRN TP MUSCLE PAIN 07/10/20 18:30 Al Hydroxide/Mg Hydroxide (Mylanta Plus Xs) 15 ml PRN AFTMEALHC PRN PO DYSPEPSIA 07/10/20 18:30 Magnesium Hydroxide (Milk Of Magnesia) 2,400 mg PRN QHS PRN PO CONSTIPATION 07/10/20 18:30 Allopurinol (Zyloprim) 100 mg BID PO 07/10/20 21:00 07/20/20 20:20 Vitamin D (Vitamin D3) 1,000 unit DAILY PO 07/11/20 09:00 07/20/20 07:47 Glucose (Insta-Glucose) 15 gm PRN Q15MIN PRN PO HYPOGLYCEMIA 07/10/20 18:30 Dextrose (Dextrose 50%-Water Syringe) 25 gm PRN Q15MIN PRN IV HYPOGLYCEMIA 07/10/20 18:30 Ferrous Sulfate (Feosol) 325 mg BIDWMEALS PO 07/11/20 08:00 07/20/20 17:38 Finasteride (Proscar) 5 mg DAILY PO 07/11/20 09:00 07/20/20 07:47 Gabapentin (Neurontin) 100 mg TID PO 07/10/20 21:00 07/20/20 20:20 Insulin Glargine (Lantus Syringe) 30 unit HS SQ 07/10/20 21:00 07/20/20 21:00 Insulin Human Lispro (HumaLOG) 5 units TIDWMEALS PRN SQ FSBS GREATER THAN 400 07/10/20 18:45 Lisinopril (Prinivil) 10 mg DAILY PO 07/11/20 09:00 07/20/20 07:45 Metoprolol Tartrate (Lopressor) 25 mg DAILY PO 07/11/20 09:00 07/20/20 07:46 Olanzapine (ZyPREXA) 5 mg BID PO 07/10/20 21:00 07/20/20 20:20 Ondansetron HCl (Zofran Odt) 4 mg PRN Q8HRS PRN PO NAUSEA 07/10/20 18:30 Pantoprazole Sodium (Protonix) 40 mg BIDWMEALS PO 07/11/20 08:00 07/20/20 17:38 Sucralfate (Carafate) 1 gm QIDACHS PO 07/10/20 21:00 07/20/20 20:20 Tamsulosin HCl (Flomax) 0.4 mg HS PO 07/10/20 21:00 07/20/20 20:19 Tramadol HCl (Ultram) 50 mg BID PO 07/10/20 21:00 07/20/20 20:20 Lactobacillus Rhamnosus (Culturelle) 1 cap BID PO 07/10/20 21:00 07/20/20 20:20 Glimepiride (Amaryl) 4 mg BIDWMEALS PO 07/11/20 08:00 07/20/20 17:38 Non-Formulary Medication (Glucagon,Human Recombinant (Glucagon Emergency Kit)) 1 mg PRN PRN IM HYPOGLYCEMIA 07/10/20 18:30 UNV Lactulose (Lactulose) 20 gm TID PO 07/10/20 21:00 07/20/20 20:19 Polyethylene Glycol (miraLAX) 17 gm DAILY PO 07/11/20 09:00 07/20/20 07:47 Non-Formulary Medication ([Abh Topical Cream] ) 0.5 ml Q6HRS PRN TOP AGITATION 07/10/20 18:30 07/11/20 07:18 DC Mirtazapine (Remeron) 7.5 mg QHS PO 07/13/20 21:00 07/14/20 18:47 DC 07/13/20 19:50 Divalproex Sodium (Depakote Sprinkles) 125 mg BID@0900,1700 PO 07/14/20 09:00 07/18/20 18:49 DC 07/18/20 17:29 Trazodone HCl (Desyrel) 50 mg PRN QHS PRN PO INSOMNIA 07/13/20 21:45 07/19/20 19:42 Mirtazapine (Remeron) 15 mg QHS PO 07/14/20 21:00 07/20/20 20:19 Melatonin (Melatonin) 3 mg QHS PO 07/17/20 21:00 07/20/20 20:19 Divalproex Sodium (Depakote Sprinkles) 250 mg BID@0900,1700 PO 07/19/20 09:00 07/20/20 17:38 Sertraline HCl (Zoloft) 25 mg DAILY PO 07/19/20 09:00 07/21/20 23:50 07/20/20 07:47 Sertraline HCl (Zoloft) 50 mg DAILY PO 07/22/20 09:00 I have reviewed the current psychotropics carefully including drug interactions. Risk benefit ratio favors no change other than as noted in my dictated progress note. Diagnosis: Problems: (1) Impulse control disorder, unspecified (2) Anxiety disorder, unspecified (3) Dementia, vascular, with depression (4) Dementia, vascular, with delusions (5) Dementia in Alzheimer's disease with depression (6) Dementia in Alzheimer's disease with delusions (7) Dementia of the Alzheimer's type with early onset with behavioral disturbance (8) Major neurocognitive disorder ASIM SPANGLER MD Jul 21, 2020 07:16
--- NOTE | 2020-07-21 07:34 | PDOC ---
Exam Note: Harshil Note: This note is a late entry for 07/20/2020 covers elements not covered in my initial note. Subjective: The patient was reviewed in the morning of 07/20/2020 for a treatment team meeting with Danyell Cabral, Yael Sommers and Nuria (social work therapist), Amy, activity therapy and Jeovany GLOVER, discussed and reviewed the chart. The patient slept 2-1/2 hours previous night. He remains in a Broda chair, anxious, restless, one-on-one status. He is apparently more alert in the morning, significantly does not like the thickened water. He is continent, fed himself breakfast, restless. UA has reflex to culture and is positive. We will defer to Dr. Catherine. Review of Systems: Ambulation impaired in Broda chair. No CV, , pulmonary, eye, ENT system symptoms on review. Reliability poor. Mental Status Exam: The patient is oriented to himself. Insight and judgment, recent and remote memory, attention and concentration, fund of knowledge is poor consistent with his diagnoses. Laboratory Data: Reviewed. Impression: Major neurocognitive disorder Alzheimer vascular with delusion, depression, behavioral disturbance. Anxiety disorder unspecified. Impulse control disorder unspecified. Plan: The patients urine C&S is positive but Dr. Alexander wanders whether it is due to his chronic Foleys catheter. In fact the Foleys was only inserted recently but I will leave the final decision to Dr. Alexander/Dr. Catherine. Maintain rest of the psychotropics unchanged from initial note. Assessment: Vital Signs/I&O: Vital Signs Date Time Temp Pulse Resp B/P (MAP) Pulse Ox O2 Delivery O2 Flow Rate FiO2 07/21/20 06:18 97.4 71 15 113/66 (82) 93 Room Air I & O 07/20/20 07/20/20 07/21/20 15:00 23:00 07:00 Intake Total 960 ml 480 ml 120 ml Output Total 425 ml Balance 960 ml 55 ml 120 ml Labs: Laboratory Tests Test 07/20/20 11:32 07/20/20 16:42 07/20/20 19:24 07/21/20 07:13 Glucose (Fingerstick) 258 mg/dL (70-99) H 369 mg/dL (70-99) H 305 mg/dL (70-99) H 102 mg/dL (70-99) H Current Medications: Meds: Laboratory Tests Test 07/20/20 11:32 07/20/20 16:42 07/20/20 19:24 07/21/20 07:13 Glucose (Fingerstick) 258 mg/dL 369 mg/dL 305 mg/dL 102 mg/dL Current Medications Medications (Trade) Dose Ordered Sig/Michell Route PRN Reason Start Time Stop Time Status Last Admin Dose Admin Non-Formulary Medication (Non Formulary Item (Duckk-Dhhkps-Qhdqe)) 1 ea PRN Q6HRS PRN TP AGITATION 07/10/20 17:15 07/20/20 10:30 Acetaminophen (Tylenol) 650 mg PRN Q6HRS PRN PO MILD PAIN / TEMP > 100.3'F 07/10/20 18:30 Multi-Ingredient Ointment (Analgesic [place]) 1 loyd PRN QID PRN TP MUSCLE PAIN 07/10/20 18:30 Al Hydroxide/Mg Hydroxide (Mylanta Plus Xs) 15 ml PRN AFTMEALHC PRN PO DYSPEPSIA 07/10/20 18:30 Magnesium Hydroxide (Milk Of Magnesia) 2,400 mg PRN QHS PRN PO CONSTIPATION 07/10/20 18:30 Allopurinol (Zyloprim) 100 mg BID PO 07/10/20 21:00 07/20/20 20:20 Vitamin D (Vitamin D3) 1,000 unit DAILY PO 07/11/20 09:00 07/20/20 07:47 Glucose (Insta-Glucose) 15 gm PRN Q15MIN PRN PO HYPOGLYCEMIA 07/10/20 18:30 Dextrose (Dextrose 50%-Water Syringe) 25 gm PRN Q15MIN PRN IV HYPOGLYCEMIA 07/10/20 18:30 Ferrous Sulfate (Feosol) 325 mg BIDWMEALS PO 07/11/20 08:00 07/20/20 17:38 Finasteride (Proscar) 5 mg DAILY PO 07/11/20 09:00 07/20/20 07:47 Gabapentin (Neurontin) 100 mg TID PO 07/10/20 21:00 07/20/20 20:20 Insulin Glargine (Lantus Syringe) 30 unit HS SQ 07/10/20 21:00 07/20/20 21:00 Insulin Human Lispro (HumaLOG) 5 units TIDWMEALS PRN SQ FSBS GREATER THAN 400 07/10/20 18:45 Lisinopril (Prinivil) 10 mg DAILY PO 07/11/20 09:00 07/20/20 07:45 Metoprolol Tartrate (Lopressor) 25 mg DAILY PO 07/11/20 09:00 07/20/20 07:46 Olanzapine (ZyPREXA) 5 mg BID PO 07/10/20 21:00 07/20/20 20:20 Ondansetron HCl (Zofran Odt) 4 mg PRN Q8HRS PRN PO NAUSEA 07/10/20 18:30 Pantoprazole Sodium (Protonix) 40 mg BIDWMEALS PO 07/11/20 08:00 07/20/20 17:38 Sucralfate (Carafate) 1 gm QIDACHS PO 07/10/20 21:00 07/20/20 20:20 Tamsulosin HCl (Flomax) 0.4 mg HS PO 07/10/20 21:00 07/20/20 20:19 Tramadol HCl (Ultram) 50 mg BID PO 07/10/20 21:00 07/20/20 20:20 Lactobacillus Rhamnosus (Culturelle) 1 cap BID PO 07/10/20 21:00 07/20/20 20:20 Glimepiride (Amaryl) 4 mg BIDWMEALS PO 07/11/20 08:00 07/20/20 17:38 Non-Formulary Medication (Glucagon,Human Recombinant (Glucagon Emergency Kit)) 1 mg PRN PRN IM HYPOGLYCEMIA 07/10/20 18:30 UNV Lactulose (Lactulose) 20 gm TID PO 07/10/20 21:00 07/20/20 20:19 Polyethylene Glycol (miraLAX) 17 gm DAILY PO 07/11/20 09:00 07/20/20 07:47 Non-Formulary Medication ([Abh Topical Cream] ) 0.5 ml Q6HRS PRN TOP AGITATION 07/10/20 18:30 07/11/20 07:18 DC Mirtazapine (Remeron) 7.5 mg QHS PO 07/13/20 21:00 07/14/20 18:47 DC 07/13/20 19:50 Divalproex Sodium (Depakote Sprinkles) 125 mg BID@0900,1700 PO 07/14/20 09:00 07/18/20 18:49 DC 07/18/20 17:29 Trazodone HCl (Desyrel) 50 mg PRN QHS PRN PO INSOMNIA 07/13/20 21:45 07/19/20 19:42 Mirtazapine (Remeron) 15 mg QHS PO 07/14/20 21:00 07/20/20 20:19 Melatonin (Melatonin) 3 mg QHS PO 07/17/20 21:00 07/20/20 20:19 Divalproex Sodium (Depakote Sprinkles) 250 mg BID@0900,1700 PO 07/19/20 09:00 07/20/20 17:38 Sertraline HCl (Zoloft) 25 mg DAILY PO 07/19/20 09:00 07/21/20 23:50 07/20/20 07:47 Sertraline HCl (Zoloft) 50 mg DAILY PO 07/22/20 09:00 I have reviewed the current psychotropics carefully including drug interactions. Risk benefit ratio favors no change other than as noted in my dictated progress note. Diagnosis: Problems: (1) Impulse control disorder, unspecified (2) Anxiety disorder, unspecified (3) Dementia, vascular, with depression (4) Dementia, vascular, with delusions (5) Dementia in Alzheimer's disease with depression (6) Dementia in Alzheimer's disease with delusions (7) Dementia of the Alzheimer's type with early onset with behavioral disturbance (8) Major neurocognitive disorder ASIM SPANGLER MD Jul 21, 2020 07:34
[2020-07-21] MEDS: traMADol 50 MG TABLET PO SCH ×2 (08:35→20:35)
[2020-07-21] MEDS: LACTULOSE 20 GM/30 ML SOLUTION. PO SCH ×3 (08:35→20:35)
[2020-07-21] MEDS: CHOLECALCIFEROL (VITAMIN D3) 1,000 UNIT TABLET PO SCH (08:35)
[2020-07-21] MEDS: GABAPENTIN 100 MG CAPSULE. PO SCH ×3 (08:35→20:35)
[2020-07-21] MEDS: LACTOBACILLUS RHAMNOSUS GG 1 CAPSULE. PO SCH ×2 (08:35→20:35)
[2020-07-21] MEDS: FINASTERIDE 5 MG TABLET. PO SCH (08:35)
[2020-07-21] MEDS: FERROUS SULFATE 325 MG TABLET. PO SCH ×2 (08:36→17:19)
[2020-07-21] MEDS: DIVALPROEX 125 MG CAP.SPRINK PO SCH ×2 (08:36→17:19)
[2020-07-21] MEDS: SERTRALINE 25 MG TABLET. PO SCH (08:36)
[2020-07-21] MEDS: POLYETHYLENE GLYCOL 3350 17 GM PACKET. PO SCH (08:36)
[2020-07-21] MEDS: ALLOPURINOL 100 MG TABLET. PO SCH ×2 (08:36→20:35)
[2020-07-21] MEDS: OLANZapine 5 MG TABLET PO SCH ×2 (08:36→20:34)
[2020-07-21] MEDS: SUCRALFATE 1 GM TABLET. PO SCH ×4 (08:36→20:34)
[2020-07-21] MEDS: PANTOPRAZOLE 40 MG TABLET. PO SCH ×2 (08:36→17:00)
[2020-07-21] MEDS: LISINOPRIL 10 MG TABLET PO SCH (08:37)
[2020-07-21] MEDS: METOPROLOL TART IMMED RELEASE 25 MG TABLET. PO SCH (08:37)
[2020-07-21] MEDS: GLIMEPIRIDE 2 MG TABLET PO SCH ×2 (08:37→17:19)
--- NOTE | 2020-07-21 09:49 | NUR ---
IP note: UA w/C&S 07/17/20 resulted 07/20/20 positive for e.coli in urine, susceptible to all tested drugs. Result called to [facility], report taken by Petra.
[2020-07-21 15:35] VITALS: BP 125/72
--- NOTE | 2020-07-21 16:40 | NUR ---
Wound care: Attempted to see patient regarding wound care. Spoke with RN whom stated she had just changed the dressing after the patient's shower and patient was now in the day room. We viewed the photos in the chart with RN and agreeable to xeroform gauze and foam dressing, changing every other day. Dressing change instructions left at nurses station. Wound care will follow up for reassessment next week.
[2020-07-21] MEDS ORDERED: TAMSULOSIN 0.4 MG CAP.ER.24H. PO SCH (17:45)
--- NOTE | 2020-07-21 18:22 | NUR ---
Patient confused disorganized and alert to self. Patient sedated today staff able to arouse patient verbally and sternal rub. Patient in the dining room for all meals breakfast he ate and lunch he had an ok appetite but dinner he was sleepy. Patient med compliant crushed in pudding cooperative with cares and shower today no behavioral disturbances to report. Patient has not voided since hartmann removed 07/20 at 1845 patient has not had a wet brief, fluids were pushed today bladder scanned patient he had 419cc vitals wnl of baseline and stable patient was seen by wound care and new orders are xerofoam with boarded foam dressing to cover instead of the medipore tape. Patient also seen by Dr Catherine who ordered straight cath bid for >300cc and increase flomax to 0.8mg as well as cefdinir for uti. Patient also has friction on his right elbow due to him constantly rubbing it against the arm of the broda a bordered foam dressing applied to elbow. Dr Medellin ordered decrease of mirtazepine from 15 to 7.5mg. Will continue to monitor patient. Addendum: 07/21/20 at 1856 by KELLY KILLIAN RN [id number] Output from straight cath tolerated well.
[2020-07-21] MEDS: TAMSULOSIN 0.4 MG CAP.ER.24H. PO SCH (20:34)
[2020-07-21] MEDS: MIRTAZAPINE 7.5 MG TABLET. PO SCH (20:34)
[2020-07-21] MEDS: MELATONIN 3 MG TABLET PO SCH (20:34)
[2020-07-21] MEDS: CEFDINIR 300 MG CAPSULE PO SCH (20:35)
[2020-07-21] MEDS: INSULIN GLARGINE SYRINGE. SQ SCH (20:57)
--- NOTE | 2020-07-21 22:06 | PDOC ---
Exam Note: Harshil Note: Please also refer to the separate dictated note~for this date of service dictated separately.~Patient seen individually. Discussed the patient with Nursing staff reviewed the chart.~Reviewed interim history and current functioning. Reviewed vital signs,~Labs/ Radiology~and current medications noted below. Continue current treatment with the changes noted in the dictated addendum note Assessment: Vital Signs/I&O: Vital Signs Date Time Temp Pulse Resp B/P (MAP) Pulse Ox O2 Delivery O2 Flow Rate FiO2 07/21/20 21:37 98 Room Air 07/21/20 15:35 97.4 62 18 125/72 (89) I & O 07/20/20 07/20/20 07/21/20 15:00 23:00 07:00 Intake Total 960 ml 480 ml 120 ml Output Total 425 ml Balance 960 ml 55 ml 120 ml Labs: Laboratory Tests Test 07/21/20 07:13 07/21/20 11:16 07/21/20 16:55 07/21/20 19:09 Glucose (Fingerstick) 102 mg/dL (70-99) H 196 mg/dL (70-99) H 239 mg/dL (70-99) H 222 mg/dL (70-99) H Current Medications: Meds: Laboratory Tests Test 07/21/20 07:13 07/21/20 11:16 07/21/20 16:55 07/21/20 19:09 Glucose (Fingerstick) 102 mg/dL 196 mg/dL 239 mg/dL 222 mg/dL Current Medications Medications (Trade) Dose Ordered Sig/Michell Route PRN Reason Start Time Stop Time Status Last Admin Dose Admin Non-Formulary Medication (Non Formulary Item (Bmvhh-Ufffvr-Cefix)) 1 ea PRN Q6HRS PRN TP AGITATION 07/10/20 17:15 07/20/20 10:30 Acetaminophen (Tylenol) 650 mg PRN Q6HRS PRN PO MILD PAIN / TEMP > 100.3'F 07/10/20 18:30 Multi-Ingredient Ointment (Analgesic [place]) 1 loyd PRN QID PRN TP MUSCLE PAIN 07/10/20 18:30 Al Hydroxide/Mg Hydroxide (Mylanta Plus Xs) 15 ml PRN AFTMEALHC PRN PO DYSPEPSIA 07/10/20 18:30 Magnesium Hydroxide (Milk Of Magnesia) 2,400 mg PRN QHS PRN PO CONSTIPATION 07/10/20 18:30 Allopurinol (Zyloprim) 100 mg BID PO 07/10/20 21:00 07/21/20 20:35 Vitamin D (Vitamin D3) 1,000 unit DAILY PO 07/11/20 09:00 07/21/20 08:35 Glucose (Insta-Glucose) 15 gm PRN Q15MIN PRN PO HYPOGLYCEMIA 07/10/20 18:30 Dextrose (Dextrose 50%-Water Syringe) 25 gm PRN Q15MIN PRN IV HYPOGLYCEMIA 07/10/20 18:30 Ferrous Sulfate (Feosol) 325 mg BIDWMEALS PO 07/11/20 08:00 07/21/20 17:19 Finasteride (Proscar) 5 mg DAILY PO 07/11/20 09:00 07/21/20 08:35 Gabapentin (Neurontin) 100 mg TID PO 07/10/20 21:00 07/21/20 20:35 Insulin Glargine (Lantus Syringe) 30 unit HS SQ 07/10/20 21:00 07/21/20 20:57 Insulin Human Lispro (HumaLOG) 5 units TIDWMEALS PRN SQ FSBS GREATER THAN 400 07/10/20 18:45 Lisinopril (Prinivil) 10 mg DAILY PO 07/11/20 09:00 07/21/20 08:37 Metoprolol Tartrate (Lopressor) 25 mg DAILY PO 07/11/20 09:00 07/21/20 08:37 Olanzapine (ZyPREXA) 5 mg BID PO 07/10/20 21:00 07/21/20 20:34 Ondansetron HCl (Zofran Odt) 4 mg PRN Q8HRS PRN PO NAUSEA 07/10/20 18:30 Pantoprazole Sodium (Protonix) 40 mg BIDWMEALS PO 07/11/20 08:00 07/21/20 17:00 Sucralfate (Carafate) 1 gm QIDACHS PO 07/10/20 21:00 07/21/20 20:34 Tamsulosin HCl (Flomax) 0.4 mg HS PO 07/10/20 21:00 07/21/20 17:34 DC 07/20/20 20:19 Tramadol HCl (Ultram) 50 mg BID PO 07/10/20 21:00 07/21/20 20:35 Lactobacillus Rhamnosus (Culturelle) 1 cap BID PO 07/10/20 21:00 07/21/20 20:35 Glimepiride (Amaryl) 4 mg BIDWMEALS PO 07/11/20 08:00 07/21/20 17:19 Non-Formulary Medication (Glucagon,Human Recombinant (Glucagon Emergency Kit)) 1 mg PRN PRN IM HYPOGLYCEMIA 07/10/20 18:30 UNV Lactulose (Lactulose) 20 gm TID PO 07/10/20 21:00 07/21/20 20:35 Polyethylene Glycol (miraLAX) 17 gm DAILY PO 07/11/20 09:00 07/21/20 08:36 Non-Formulary Medication ([Abh Topical Cream] ) 0.5 ml Q6HRS PRN TOP AGITATION 07/10/20 18:30 07/11/20 07:18 DC Mirtazapine (Remeron) 7.5 mg QHS PO 07/13/20 21:00 07/14/20 18:47 DC 07/13/20 19:50 Divalproex Sodium (Depakote Sprinkles) 125 mg BID@0900,1700 PO 07/14/20 09:00 07/18/20 18:49 DC 07/18/20 17:29 Trazodone HCl (Desyrel) 50 mg PRN QHS PRN PO INSOMNIA 07/13/20 21:45 07/19/20 19:42 Mirtazapine (Remeron) 15 mg QHS PO 07/14/20 21:00 07/21/20 18:30 DC 07/20/20 20:19 Melatonin (Melatonin) 3 mg QHS PO 07/17/20 21:00 07/21/20 20:34 Divalproex Sodium (Depakote Sprinkles) 250 mg BID@0900,1700 PO 07/19/20 09:00 07/21/20 17:19 Sertraline HCl (Zoloft) 25 mg DAILY PO 07/19/20 09:00 07/21/20 23:50 07/21/20 08:36 Sertraline HCl (Zoloft) 50 mg DAILY PO 07/22/20 09:00 Cefdinir (Omnicef) 300 mg BID PO 07/21/20 21:00 07/21/20 20:35 Tamsulosin HCl (Flomax) 0.8 mg HS PO 07/21/20 17:45 07/21/20 18:39 DC Mirtazapine (Remeron) 7.5 mg QHS PO 07/21/20 21:00 07/21/20 20:34 Tamsulosin HCl (Flomax) 0.8 mg HS PO 07/21/20 21:00 07/21/20 20:34 Current Medications Medications (Trade) Dose Ordered Sig/Michell Route PRN Reason Start Time Stop Time Status Last Admin Dose Admin Cefdinir (Omnicef) 300 mg BID PO 07/21/20 21:00 07/21/20 20:35 Mirtazapine (Remeron) 7.5 mg QHS PO 07/21/20 21:00 07/21/20 20:34 Tamsulosin HCl (Flomax) 0.8 mg HS PO 07/21/20 21:00 07/21/20 20:34 I have reviewed the current psychotropics carefully including drug interactions. Risk benefit ratio favors no change other than as noted in my dictated progress note. Diagnosis: Problems: (1) Impulse control disorder, unspecified (2) Anxiety disorder, unspecified (3) Dementia, vascular, with depression (4) Dementia, vascular, with delusions (5) Dementia in Alzheimer's disease with depression (6) Dementia in Alzheimer's disease with delusions (7) Dementia of the Alzheimer's type with early onset with behavioral disturbance (8) Major neurocognitive disorder ASIM SPANGLER MD Jul 21, 2020 22:06
--- NOTE | 2020-07-21 23:04 | NUR ---
Pt in Broda chair in day room, restless at times but mostly re-directible at this time. Medications given crushed in honey thick liquid with a spoon. Patient cooperative with assessment, oriented to self only, patient unable to answer any assessment questions. He remains a 1:1 for safety.
--- NOTE | 2020-07-22 00:25 | NUR ---
patient is no longer a 1:[address] Medellin order
--- NOTE | 2020-07-22 05:15 | NUR ---
Bladder scanner showed 194cc of urine in bladder. Did NOT straight cath at this time. Order is to straight cath for >300 cc. Patients brief was dry this morning.
[2020-07-22 06:16] VITALS: BP 116/71
[2020-07-22] MEDS: LACTULOSE 20 GM/30 ML SOLUTION. PO SCH ×3 (09:00→19:51)
[2020-07-22] MEDS: FINASTERIDE 5 MG TABLET. PO SCH (09:00)
[2020-07-22] MEDS: METOPROLOL TART IMMED RELEASE 25 MG TABLET. PO SCH (09:00)
[2020-07-22] MEDS: DIVALPROEX 125 MG CAP.SPRINK PO SCH ×2 (09:00→16:32)
[2020-07-22] MEDS: OLANZapine 5 MG TABLET PO SCH (09:00)
[2020-07-22] MEDS: FERROUS SULFATE 325 MG TABLET. PO SCH ×2 (09:00→16:32)
[2020-07-22] MEDS: SUCRALFATE 1 GM TABLET. PO SCH ×4 (09:01→19:52)
[2020-07-22] MEDS: ALLOPURINOL 100 MG TABLET. PO SCH ×2 (09:01→19:52)
[2020-07-22] MEDS: CHOLECALCIFEROL (VITAMIN D3) 1,000 UNIT TABLET PO SCH (09:01)
[2020-07-22] MEDS: LACTOBACILLUS RHAMNOSUS GG 1 CAPSULE. PO SCH ×2 (09:01→19:51)
[2020-07-22] MEDS: traMADol 50 MG TABLET PO SCH ×2 (09:01→19:51)
[2020-07-22] MEDS: LISINOPRIL 10 MG TABLET PO SCH (09:01)
[2020-07-22] MEDS: GABAPENTIN 100 MG CAPSULE. PO SCH ×3 (09:01→19:51)
[2020-07-22] MEDS: CEFDINIR 300 MG CAPSULE PO SCH ×2 (09:02→19:51)
[2020-07-22] MEDS: POLYETHYLENE GLYCOL 3350 17 GM PACKET. PO SCH (09:02)
[2020-07-22] MEDS: GLIMEPIRIDE 2 MG TABLET PO SCH ×2 (09:02→16:32)
[2020-07-22] MEDS: PANTOPRAZOLE 40 MG TABLET. PO SCH ×2 (09:02→16:32)
[2020-07-22] MEDS: SERTRALINE 50 MG TABLET. PO SCH (09:03)
[2020-07-22 12:35] LABS: BASO % 1 % (0-3); EOS # 0.4 x10^3/uL (0.0-0.7); EOS % 6 % (0-3); HEMATOCRIT 38.2 % (39.0-53.0); HEMOGLOBIN 12.6 g/dL (13.0-17.5); LYMPH # 1.2 x10^3/uL (1.0-4.8); LYMPH % 19 % (24-48); MEAN CORPUSCULAR HEMOGLOBIN 33 pg (25-35); MEAN CORPUSCULAR HGB CONC 33 g/dL (31-37); MEAN CORPUSCULAR VOLUME 98 fL (79-100); MONO # 0.4 x10^3/uL (0.0-1.1); MONO % 6 % (0-9); NEUT # 4.4 x10^3uL (1.8-7.7); NEUT % 68 % (31-73); PLATELET COUNT 66 x10^3/uL (140-400); RED BLOOD COUNT 3.88 x10^6/uL (4.30-5.70); RED CELL DISTRIBUTION WIDTH 15.2 % (11.5-14.5); WHITE BLOOD COUNT 6.4 x10^3/uL (4.0-11.0)
[2020-07-22 13:48] LABS: ALBUMIN 2.6 g/dL (3.4-5.0); ALBUMIN/GLOBULIN RATIO 0.6 (1.0-1.7); ALK PHOS 95 U/L (46-116); ALT (SGPT) 30 U/L (16-63); ANION GAP 11 (6-14); AST (SGOT) 30 U/L (15-37); BLOOD UREA NITROGEN 40 mg/dL (8-26); BUN/CREATININE RATIO 27 (6-20); CARBON DIOXIDE 25 mmol/L (21-32); CHLORIDE 115 mmol/L (98-107); CREATININE 1.5 mg/dL (0.7-1.3); GFR 45.5; GLUCOSE 133 mg/dL (70-99); POTASSIUM 4.5 mmol/L (3.5-5.1); SODIUM 151 mmol/L (136-145); TOTAL PROTEIN 7.2 g/dL (6.4-8.2); VAL ACID 18 mcg/mL (50-100)
--- NOTE | 2020-07-22 15:45 | NUR ---
Nurse Note Patient has been extremely lethargic throughout shift. Hard to arouse in order to take medications. Patient otherwise up in chair and in day room.
[2020-07-22 15:59] VITALS: BP 104/56
[2020-07-22] MEDS: MIRTAZAPINE 7.5 MG TABLET. PO SCH (19:51)
[2020-07-22] MEDS: MELATONIN 3 MG TABLET PO SCH (19:51)
[2020-07-22] MEDS: TAMSULOSIN 0.4 MG CAP.ER.24H. PO SCH (19:52)
--- NOTE | 2020-07-22 21:15 | NUR ---
Ammonia level 62. Advised Dr Medellin via telephone. No new orders at this time. He stated he had already discontinued the depakote and zyprexa earlier this shift.
[2020-07-22] MEDS: INSULIN GLARGINE SYRINGE. SQ SCH (21:25)
--- NOTE | 2020-07-22 21:57 | PDOC ---
Exam Note: Harshil Note: Please also refer to the separate dictated note~for this date of service dictated separately.~Patient seen individually. Discussed the patient with Nursing staff reviewed the chart.~Reviewed interim history and current functioning. Reviewed vital signs,~Labs/ Radiology~and current medications noted below. Continue current treatment with the changes noted in the dictated addendum note Assessment: Vital Signs/I&O: Vital Signs Date Time Temp Pulse Resp B/P (MAP) Pulse Ox O2 Delivery O2 Flow Rate FiO2 07/22/20 15:59 98.0 96 16 104/56 (72) 97 07/22/20 06:16 Room Air I & O 07/21/20 07/21/20 07/22/20 15:00 23:00 07:00 Intake Total 360 ml 240 ml Balance 360 ml 240 ml Labs: Laboratory Tests Test 07/22/20 08:00 07/22/20 11:35 07/22/20 12:04 07/22/20 17:22 Glucose (Fingerstick) 106 mg/dL (70-99) H 124 mg/dL (70-99) H 115 mg/dL (70-99) H White Blood Count 6.4 x10^3/uL (4.0-11.0) Red Blood Count 3.88 x10^6/uL (4.30-5.70) L Hemoglobin 12.6 g/dL (13.0-17.5) L Hematocrit 38.2 % (39.0-53.0) L Mean Corpuscular Volume 98 fL (79-100) Mean Corpuscular Hemoglobin 33 pg (25-35) Mean Corpuscular Hemoglobin Concent 33 g/dL (31-37) Red Cell Distribution Width 15.2 % (11.5-14.5) H Platelet Count 66 x10^3/uL (140-400) L Neutrophils (%) (Auto) 68 % (31-73) Lymphocytes (%) (Auto) 19 % (24-48) L Monocytes (%) (Auto) 6 % (0-9) Eosinophils (%) (Auto) 6 % (0-3) H Basophils (%) (Auto) 1 % (0-3) Neutrophils # (Auto) 4.4 x10^3uL (1.8-7.7) Lymphocytes # (Auto) 1.2 x10^3/uL (1.0-4.8) Monocytes # (Auto) 0.4 x10^3/uL (0.0-1.1) Eosinophils # (Auto) 0.4 x10^3/uL (0.0-0.7) Basophils # (Auto) 0.0 x10^3/uL (0.0-0.2) Sodium Level 151 mmol/L (136-145) H Potassium Level 4.5 mmol/L (3.5-5.1) Chloride Level 115 mmol/L (98-107) H Carbon Dioxide Level 25 mmol/L (21-32) Anion Gap 11 (6-14) Blood Urea Nitrogen 40 mg/dL (8-26) H Creatinine 1.5 mg/dL (0.7-1.3) H Estimated GFR (Cockcroft-Gault) 45.5 BUN/Creatinine Ratio 27 (6-20) H Glucose Level 133 mg/dL (70-99) H Calcium Level 9.0 mg/dL (8.5-10.1) Total Bilirubin 1.0 mg/dL (0.2-1.0) Aspartate Amino Transferase (AST) 30 U/L (15-37) Alanine Aminotransferase (ALT) 30 U/L (16-63) Alkaline Phosphatase 95 U/L (46-116) Total Protein 7.2 g/dL (6.4-8.2) Albumin 2.6 g/dL (3.4-5.0) L Albumin/Globulin Ratio 0.6 (1.0-1.7) L Valproic Acid Level 18 mcg/mL (50-100) L Valproic Acid Last Dose Date 07/21/2020 Valproic Acid Last Dose Time 1700 Test 07/22/20 19:12 07/22/20 19:50 Glucose (Fingerstick) 124 mg/dL (70-99) H Ammonia 62 mcmol/L (11-34) H Current Medications: Meds: Laboratory Tests Test 07/22/20 08:00 07/22/20 11:35 07/22/20 12:04 07/22/20 17:22 Glucose (Fingerstick) 106 mg/dL 124 mg/dL 115 mg/dL White Blood Count 6.4 x10^3/uL Red Blood Count 3.88 x10^6/uL Hemoglobin 12.6 g/dL Hematocrit 38.2 % Mean Corpuscular Volume 98 fL Mean Corpuscular Hemoglobin 33 pg Mean Corpuscular Hemoglobin Concent 33 g/dL Red Cell Distribution Width 15.2 % Platelet Count 66 x10^3/uL Neutrophils (%) (Auto) 68 % Lymphocytes (%) (Auto) 19 % Monocytes (%) (Auto) 6 % Eosinophils (%) (Auto) 6 % Basophils (%) (Auto) 1 % Neutrophils # (Auto) 4.4 x10^3uL Lymphocytes # (Auto) 1.2 x10^3/uL Monocytes # (Auto) 0.4 x10^3/uL Eosinophils # (Auto) 0.4 x10^3/uL Basophils # (Auto) 0.0 x10^3/uL Sodium Level 151 mmol/L Potassium Level 4.5 mmol/L Chloride Level 115 mmol/L Carbon Dioxide Level 25 mmol/L Anion Gap 11 Blood Urea Nitrogen 40 mg/dL Creatinine 1.5 mg/dL Estimated GFR (Cockcroft-Gault) 45.5 BUN/Creatinine Ratio 27 Glucose Level 133 mg/dL Calcium Level 9.0 mg/dL Total Bilirubin 1.0 mg/dL Aspartate Amino Transf (AST/SGOT) 30 U/L Alanine Aminotransferase (ALT/SGPT) 30 U/L Alkaline Phosphatase 95 U/L Total Protein 7.2 g/dL Albumin 2.6 g/dL Albumin/Globulin Ratio 0.6 Valproic Acid (Depakene) Level 18 mcg/mL Valproic Acid Last Dose Date 07/21/2020 Valproic Acid Last Dose Time 1700 Test 07/22/20 19:12 07/22/20 19:50 Glucose (Fingerstick) 124 mg/dL Ammonia 62 mcmol/L Current Medications Medications (Trade) Dose Ordered Sig/Michell Route PRN Reason Start Time Stop Time Status Last Admin Dose Admin Non-Formulary Medication (Non Formulary Item (Cpdwi-Fgdfmq-Mfwkt)) 1 ea PRN Q6HRS PRN TP AGITATION 07/10/20 17:15 07/20/20 10:30 Acetaminophen (Tylenol) 650 mg PRN Q6HRS PRN PO MILD PAIN / TEMP > 100.3'F 07/10/20 18:30 Multi-Ingredient Ointment (Analgesic [place]) 1 loyd PRN QID PRN TP MUSCLE PAIN 07/10/20 18:30 Al Hydroxide/Mg Hydroxide (Mylanta Plus Xs) 15 ml PRN AFTMEALHC PRN PO DYSPEPSIA 07/10/20 18:30 Magnesium Hydroxide (Milk Of Magnesia) 2,400 mg PRN QHS PRN PO CONSTIPATION 07/10/20 18:30 Allopurinol (Zyloprim) 100 mg BID PO 07/10/20 21:00 07/22/20 19:52 Vitamin D (Vitamin D3) 1,000 unit DAILY PO 07/11/20 09:00 07/22/20 09:01 Glucose (Insta-Glucose) 15 gm PRN Q15MIN PRN PO HYPOGLYCEMIA 07/10/20 18:30 Dextrose (Dextrose 50%-Water Syringe) 25 gm PRN Q15MIN PRN IV HYPOGLYCEMIA 07/10/20 18:30 Ferrous Sulfate (Feosol) 325 mg BIDWMEALS PO 07/11/20 08:00 07/22/20 16:32 Finasteride (Proscar) 5 mg DAILY PO 07/11/20 09:00 07/22/20 09:00 Gabapentin (Neurontin) 100 mg TID PO 07/10/20 21:00 07/22/20 19:51 Insulin Glargine (Lantus Syringe) 30 unit HS SQ 07/10/20 21:00 07/22/20 21:25 Insulin Human Lispro (HumaLOG) 5 units TIDWMEALS PRN SQ FSBS GREATER THAN 400 07/10/20 18:45 Lisinopril (Prinivil) 10 mg DAILY PO 07/11/20 09:00 07/22/20 09:01 Metoprolol Tartrate (Lopressor) 25 mg DAILY PO 07/11/20 09:00 07/22/20 09:00 Olanzapine (ZyPREXA) 5 mg BID PO 07/10/20 21:00 07/22/20 18:55 DC 07/22/20 09:00 Ondansetron HCl (Zofran Odt) 4 mg PRN Q8HRS PRN PO NAUSEA 07/10/20 18:30 Pantoprazole Sodium (Protonix) 40 mg BIDWMEALS PO 07/11/20 08:00 07/22/20 16:32 Sucralfate (Carafate) 1 gm QIDACHS PO 07/10/20 21:00 07/22/20 19:52 Tamsulosin HCl (Flomax) 0.4 mg HS PO 07/10/20 21:00 07/21/20 17:34 DC 07/20/20 20:19 Tramadol HCl (Ultram) 50 mg BID PO 07/10/20 21:00 07/22/20 19:51 Lactobacillus Rhamnosus (Culturelle) 1 cap BID PO 07/10/20 21:00 07/22/20 19:51 Glimepiride (Amaryl) 4 mg BIDWMEALS PO 07/11/20 08:00 07/22/20 16:32 Non-Formulary Medication (Glucagon,Human Recombinant (Glucagon Emergency Kit)) 1 mg PRN PRN IM HYPOGLYCEMIA 07/10/20 18:30 UNV Lactulose (Lactulose) 20 gm TID PO 07/10/20 21:00 07/22/20 19:51 Polyethylene Glycol (miraLAX) 17 gm DAILY PO 07/11/20 09:00 07/22/20 09:02 Non-Formulary Medication ([Abh Topical Cream] ) 0.5 ml Q6HRS PRN TOP AGITATION 07/10/20 18:30 07/11/20 07:18 DC Mirtazapine (Remeron) 7.5 mg QHS PO 07/13/20 21:00 07/14/20 18:47 DC 07/13/20 19:50 Divalproex Sodium (Depakote Sprinkles) 125 mg BID@0900,1700 PO 07/14/20 09:00 07/18/20 18:49 DC 07/18/20 17:29 Trazodone HCl (Desyrel) 50 mg PRN QHS PRN PO INSOMNIA 07/13/20 21:45 07/19/20 19:42 Mirtazapine (Remeron) 15 mg QHS PO 07/14/20 21:00 07/21/20 18:30 DC 07/20/20 20:19 Melatonin (Melatonin) 3 mg QHS PO 07/17/20 21:00 07/22/20 19:51 Divalproex Sodium (Depakote Sprinkles) 250 mg BID@0900,1700 PO 07/19/20 09:00 07/22/20 18:55 DC 07/22/20 16:32 Sertraline HCl (Zoloft) 25 mg DAILY PO 07/19/20 09:00 07/21/20 23:50 DC 07/21/20 08:36 Sertraline HCl (Zoloft) 50 mg DAILY PO 07/22/20 09:00 07/22/20 09:03 Cefdinir (Omnicef) 300 mg BID PO 07/21/20 21:00 07/22/20 19:51 Tamsulosin HCl (Flomax) 0.8 mg HS PO 07/21/20 17:45 07/21/20 18:39 DC Mirtazapine (Remeron) 7.5 mg QHS PO 07/21/20 21:00 07/22/20 19:51 Tamsulosin HCl (Flomax) 0.8 mg HS PO 07/21/20 21:00 07/22/20 19:52 Current Medications Medications (Trade) Dose Ordered Sig/Michell Route PRN Reason Start Time Stop Time Status Last Admin Dose Admin Sertraline HCl (Zoloft) 50 mg DAILY PO 07/22/20 09:00 07/22/20 09:03 I have reviewed the current psychotropics carefully including drug interactions. Risk benefit ratio favors no change other than as noted in my dictated progress note. Diagnosis: Problems: (1) Impulse control disorder, unspecified (2) Anxiety disorder, unspecified (3) Dementia, vascular, with depression (4) Dementia, vascular, with delusions (5) Dementia in Alzheimer's disease with depression (6) Dementia in Alzheimer's disease with delusions (7) Dementia of the Alzheimer's type with early onset with behavioral disturbance (8) Major neurocognitive disorder ASIM SPANGLER MD Jul 22, 2020 21:57
--- NOTE | 2020-07-23 00:06 | NUR ---
patient was incontinent of bowel and bladder during the night. He has been calm and sleeping in Broda and then in bed. Patient took his medications crushed in lactulose. Patient is reluctant to drink liquids and did not have a snack.
[2020-07-23 06:10] VITALS: BP 105/61
[2020-07-23] MEDS: GABAPENTIN 100 MG CAPSULE. PO SCH ×3 (08:20→21:00)
[2020-07-23] MEDS: CEFDINIR 300 MG CAPSULE PO SCH ×2 (08:21→21:00)
[2020-07-23] MEDS: FINASTERIDE 5 MG TABLET. PO SCH (08:21)
[2020-07-23] MEDS: LACTULOSE 20 GM/30 ML SOLUTION. PO SCH ×3 (08:21→21:00)
[2020-07-23] MEDS: PANTOPRAZOLE 40 MG TABLET. PO SCH ×2 (08:21→16:02)
[2020-07-23] MEDS: SERTRALINE 50 MG TABLET. PO SCH (08:21)
[2020-07-23] MEDS: SUCRALFATE 1 GM TABLET. PO SCH ×4 (08:21→21:00)
[2020-07-23] MEDS: ALLOPURINOL 100 MG TABLET. PO SCH ×2 (08:21→21:00)
[2020-07-23] MEDS: LACTOBACILLUS RHAMNOSUS GG 1 CAPSULE. PO SCH ×2 (08:21→21:00)
[2020-07-23] MEDS: GLIMEPIRIDE 2 MG TABLET PO SCH ×2 (08:21→16:05)
[2020-07-23] MEDS: CHOLECALCIFEROL (VITAMIN D3) 1,000 UNIT TABLET PO SCH (08:21)
[2020-07-23] MEDS: traMADol 50 MG TABLET PO SCH ×2 (08:21→21:00)
[2020-07-23] MEDS: FERROUS SULFATE 325 MG TABLET. PO SCH ×2 (08:22→16:05)
[2020-07-23] MEDS: POLYETHYLENE GLYCOL 3350 17 GM PACKET. PO SCH (08:22)
[2020-07-23] MEDS: LISINOPRIL 10 MG TABLET PO SCH (08:25)
[2020-07-23] MEDS: METOPROLOL TART IMMED RELEASE 25 MG TABLET. PO SCH (08:26)
--- NOTE | 2020-07-23 09:32 | PDOC ---
Exam Note: Harshil Note: This note is a late entry for 07/21/2020 covers elements not covered in my initial note. Subjective: The patient was seen individually in the evening of 07/21/2020 with Robert GLOVER, discussed and reviewed the chart. The patient slept 5-1/4 hours previous night. He takes medications crushed. He is little agitated during showers. Review of Systems: Ambulation impaired in Broda chair. No CV, , pulmonary, eye, ENT system symptoms on review. Reliability poor. Mental Status Exam: The patient is alert and oriented to himself. Insight and judgment, recent and remote memory, attention and concentration, fund of knowledge is poor consistent with his diagnoses. Laboratory Data: Reviewed. Impression: Major neurocognitive disorder Alzheimer vascular with delusion, depression, behavioral disturbance. Anxiety disorder unspecified. Impulse control disorder unspecified. Plan: We will reduce his Remeron from 15 mg h.s. down to 7.5 mg h.s. due to his daytime tiredness. Make further adjustments as clinically indicated. Assessment: Vital Signs/I&O: Vital Signs Date Time Temp Pulse Resp B/P (MAP) Pulse Ox O2 Delivery O2 Flow Rate FiO2 07/23/20 08:26 72 105/52 07/23/20 06:10 97.2 12 93 07/22/20 06:16 Room Air I & O 07/22/20 07/22/20 07/23/20 15:00 23:00 07:00 Intake Total 580 ml 480 ml Output Total 700 ml Balance 580 ml -220 ml Labs: Laboratory Tests Test 07/22/20 11:35 07/22/20 12:04 07/22/20 17:22 07/22/20 19:12 White Blood Count 6.4 x10^3/uL (4.0-11.0) Red Blood Count 3.88 x10^6/uL (4.30-5.70) L Hemoglobin 12.6 g/dL (13.0-17.5) L Hematocrit 38.2 % (39.0-53.0) L Mean Corpuscular Volume 98 fL (79-100) Mean Corpuscular Hemoglobin 33 pg (25-35) Mean Corpuscular Hemoglobin Concent 33 g/dL (31-37) Red Cell Distribution Width 15.2 % (11.5-14.5) H Platelet Count 66 x10^3/uL (140-400) L Neutrophils (%) (Auto) 68 % (31-73) Lymphocytes (%) (Auto) 19 % (24-48) L Monocytes (%) (Auto) 6 % (0-9) Eosinophils (%) (Auto) 6 % (0-3) H Basophils (%) (Auto) 1 % (0-3) Neutrophils # (Auto) 4.4 x10^3uL (1.8-7.7) Lymphocytes # (Auto) 1.2 x10^3/uL (1.0-4.8) Monocytes # (Auto) 0.4 x10^3/uL (0.0-1.1) Eosinophils # (Auto) 0.4 x10^3/uL (0.0-0.7) Basophils # (Auto) 0.0 x10^3/uL (0.0-0.2) Sodium Level 151 mmol/L (136-145) H Potassium Level 4.5 mmol/L (3.5-5.1) Chloride Level 115 mmol/L (98-107) H Carbon Dioxide Level 25 mmol/L (21-32) Anion Gap 11 (6-14) Blood Urea Nitrogen 40 mg/dL (8-26) H Creatinine 1.5 mg/dL (0.7-1.3) H Estimated GFR (Cockcroft-Gault) 45.5 BUN/Creatinine Ratio 27 (6-20) H Glucose Level 133 mg/dL (70-99) H Calcium Level 9.0 mg/dL (8.5-10.1) Total Bilirubin 1.0 mg/dL (0.2-1.0) Aspartate Amino Transferase (AST) 30 U/L (15-37) Alanine Aminotransferase (ALT) 30 U/L (16-63) Alkaline Phosphatase 95 U/L (46-116) Total Protein 7.2 g/dL (6.4-8.2) Albumin 2.6 g/dL (3.4-5.0) L Albumin/Globulin Ratio 0.6 (1.0-1.7) L Valproic Acid Level 18 mcg/mL (50-100) L Valproic Acid Last Dose Date 07/21/2020 Valproic Acid Last Dose Time 1700 Glucose (Fingerstick) 124 mg/dL (70-99) H 115 mg/dL (70-99) H 124 mg/dL (70-99) H Test 07/22/20 19:50 07/23/20 07:48 Ammonia 62 mcmol/L (11-34) H Glucose (Fingerstick) 90 mg/dL (70-99) Current Medications: Meds: Laboratory Tests Test 07/22/20 11:35 07/22/20 12:04 07/22/20 17:22 07/22/20 19:12 White Blood Count 6.4 x10^3/uL Red Blood Count 3.88 x10^6/uL Hemoglobin 12.6 g/dL Hematocrit 38.2 % Mean Corpuscular Volume 98 fL Mean Corpuscular Hemoglobin 33 pg Mean Corpuscular Hemoglobin Concent 33 g/dL Red Cell Distribution Width 15.2 % Platelet Count 66 x10^3/uL Neutrophils (%) (Auto) 68 % Lymphocytes (%) (Auto) 19 % Monocytes (%) (Auto) 6 % Eosinophils (%) (Auto) 6 % Basophils (%) (Auto) 1 % Neutrophils # (Auto) 4.4 x10^3uL Lymphocytes # (Auto) 1.2 x10^3/uL Monocytes # (Auto) 0.4 x10^3/uL Eosinophils # (Auto) 0.4 x10^3/uL Basophils # (Auto) 0.0 x10^3/uL Sodium Level 151 mmol/L Potassium Level 4.5 mmol/L Chloride Level 115 mmol/L Carbon Dioxide Level 25 mmol/L Anion Gap 11 Blood Urea Nitrogen 40 mg/dL Creatinine 1.5 mg/dL Estimated GFR (Cockcroft-Gault) 45.5 BUN/Creatinine Ratio 27 Glucose Level 133 mg/dL Calcium Level 9.0 mg/dL Total Bilirubin 1.0 mg/dL Aspartate Amino Transf (AST/SGOT) 30 U/L Alanine Aminotransferase (ALT/SGPT) 30 U/L Alkaline Phosphatase 95 U/L Total Protein 7.2 g/dL Albumin 2.6 g/dL Albumin/Globulin Ratio 0.6 Valproic Acid (Depakene) Level 18 mcg/mL Valproic Acid Last Dose Date 07/21/2020 Valproic Acid Last Dose Time 1700 Glucose (Fingerstick) 124 mg/dL 115 mg/dL 124 mg/dL Test 07/22/20 19:50 07/23/20 07:48 Ammonia 62 mcmol/L Glucose (Fingerstick) 90 mg/dL Current Medications Medications (Trade) Dose Ordered Sig/Michell Route PRN Reason Start Time Stop Time Status Last Admin Dose Admin Non-Formulary Medication (Non Formulary Item (Piori-Hdwhkh-Pfstt)) 1 ea PRN Q6HRS PRN TP AGITATION 07/10/20 17:15 07/20/20 10:30 Acetaminophen (Tylenol) 650 mg PRN Q6HRS PRN PO MILD PAIN / TEMP > 100.3'F 07/10/20 18:30 Multi-Ingredient Ointment (Analgesic [place]) 1 loyd PRN QID PRN TP MUSCLE PAIN 07/10/20 18:30 Al Hydroxide/Mg Hydroxide (Mylanta Plus Xs) 15 ml PRN AFTMEALHC PRN PO DYSPEPSIA 07/10/20 18:30 Magnesium Hydroxide (Milk Of Magnesia) 2,400 mg PRN QHS PRN PO CONSTIPATION 07/10/20 18:30 Allopurinol (Zyloprim) 100 mg BID PO 07/10/20 21:00 07/23/20 08:21 Vitamin D (Vitamin D3) 1,000 unit DAILY PO 07/11/20 09:00 07/23/20 08:21 Glucose (Insta-Glucose) 15 gm PRN Q15MIN PRN PO HYPOGLYCEMIA 07/10/20 18:30 Dextrose (Dextrose 50%-Water Syringe) 25 gm PRN Q15MIN PRN IV HYPOGLYCEMIA 07/10/20 18:30 Ferrous Sulfate (Feosol) 325 mg BIDWMEALS PO 07/11/20 08:00 07/23/20 08:22 Finasteride (Proscar) 5 mg DAILY PO 07/11/20 09:00 07/23/20 08:21 Gabapentin (Neurontin) 100 mg TID PO 07/10/20 21:00 07/23/20 08:20 Insulin Glargine (Lantus Syringe) 30 unit HS SQ 07/10/20 21:00 07/22/20 21:25 Insulin Human Lispro (HumaLOG) 5 units TIDWMEALS PRN SQ FSBS GREATER THAN 400 07/10/20 18:45 Lisinopril (Prinivil) 10 mg DAILY PO 07/11/20 09:00 07/22/20 09:01 Metoprolol Tartrate (Lopressor) 25 mg DAILY PO 07/11/20 09:00 07/22/20 09:00 Olanzapine (ZyPREXA) 5 mg BID PO 07/10/20 21:00 07/22/20 18:55 DC 07/22/20 09:00 Ondansetron HCl (Zofran Odt) 4 mg PRN Q8HRS PRN PO NAUSEA 07/10/20 18:30 Pantoprazole Sodium (Protonix) 40 mg BIDWMEALS PO 07/11/20 08:00 07/23/20 08:21 Sucralfate (Carafate) 1 gm QIDACHS PO 07/10/20 21:00 07/23/20 08:21 Tamsulosin HCl (Flomax) 0.4 mg HS PO 07/10/20 21:00 07/21/20 17:34 DC 07/20/20 20:19 Tramadol HCl (Ultram) 50 mg BID PO 07/10/20 21:00 07/23/20 08:21 Lactobacillus Rhamnosus (Culturelle) 1 cap BID PO 07/10/20 21:00 07/23/20 08:21 Glimepiride (Amaryl) 4 mg BIDWMEALS PO 07/11/20 08:00 07/23/20 08:21 Non-Formulary Medication (Glucagon,Human Recombinant (Glucagon Emergency Kit)) 1 mg PRN PRN IM HYPOGLYCEMIA 07/10/20 18:30 UNV Lactulose (Lactulose) 20 gm TID PO 07/10/20 21:00 07/23/20 08:21 Polyethylene Glycol (miraLAX) 17 gm DAILY PO 07/11/20 09:00 07/23/20 08:22 Non-Formulary Medication ([Abh Topical Cream] ) 0.5 ml Q6HRS PRN TOP AGITATION 07/10/20 18:30 07/11/20 07:18 DC Mirtazapine (Remeron) 7.5 mg QHS PO 07/13/20 21:00 07/14/20 18:47 DC 07/13/20 19:50 Divalproex Sodium (Depakote Sprinkles) 125 mg BID@0900,1700 PO 07/14/20 09:00 07/18/20 18:49 DC 07/18/20 17:29 Trazodone HCl (Desyrel) 50 mg PRN QHS PRN PO INSOMNIA 07/13/20 21:45 07/19/20 19:42 Mirtazapine (Remeron) 15 mg QHS PO 07/14/20 21:00 07/21/20 18:30 DC 07/20/20 20:19 Melatonin (Melatonin) 3 mg QHS PO 07/17/20 21:00 07/22/20 19:51 Divalproex Sodium (Depakote Sprinkles) 250 mg BID@0900,1700 PO 07/19/20 09:00 07/22/20 18:55 DC 07/22/20 16:32 Sertraline HCl (Zoloft) 25 mg DAILY PO 07/19/20 09:00 07/21/20 23:50 DC 07/21/20 08:36 Sertraline HCl (Zoloft) 50 mg DAILY PO 07/22/20 09:00 07/23/20 08:21 Cefdinir (Omnicef) 300 mg BID PO 07/21/20 21:00 07/23/20 08:21 Tamsulosin HCl (Flomax) 0.8 mg HS PO 07/21/20 17:45 07/21/20 18:39 DC Mirtazapine (Remeron) 7.5 mg QHS PO 07/21/20 21:00 07/22/20 19:51 Tamsulosin HCl (Flomax) 0.8 mg HS PO 07/21/20 21:00 07/22/20 19:52 I have reviewed the current psychotropics carefully including drug interactions. Risk benefit ratio favors no change other than as noted in my dictated progress note. Diagnosis: Problems: (1) Impulse control disorder, unspecified (2) Anxiety disorder, unspecified (3) Dementia, vascular, with depression (4) Dementia, vascular, with delusions (5) Dementia in Alzheimer's disease with depression (6) Dementia in Alzheimer's disease with delusions (7) Dementia of the Alzheimer's type with early onset with behavioral disturbance (8) Major neurocognitive disorder ASIM SPANGLER MD Jul 23, 2020 09:32
--- NOTE | 2020-07-23 09:49 | PDOC ---
Exam Note: Harshil Note: This note is a late entry for 07/22/2020 covers elements not covered in my initial note. Subjective: The patient was seen individually in the evening of 07/22/2020 with Pradip GLOVER, discussed and reviewed the chart. The patient slept 10 hours previous night. He had to be straight catheterized. He had 700 mL urine retention. We will defer to Dr. Catherine. Sodium was elevated at 151, BUN 40, creatinine 1.5. Valproic acid level will be checked and ammonia is unremarkable checked today. Review of Systems: Ambulation impaired in Broda chair. No CV, , pulmonary, eye, ENT system symptoms on review. Mental Status Exam: The patient is oriented to himself. He is still somewhat sedated but better than earlier in the day. Insight and judgment, recent and remote memory, attention and concentration, fund of knowledge is poor consistent with his diagnoses. Laboratory Data: Reviewed. Impression: Major neurocognitive disorder Alzheimer vascular with delusion, depression, behavioral disturbance. Anxiety disorder unspecified. Impulse control disorder unspecified. Plan: He is quite sedated at times, had to have sternal rub to wake him up. We will stop the Depakote and Zyprexa for now. Assessment: Vital Signs/I&O: Vital Signs Date Time Temp Pulse Resp B/P (MAP) Pulse Ox O2 Delivery O2 Flow Rate FiO2 07/23/20 08:26 72 105/52 07/23/20 06:10 97.2 12 93 07/22/20 06:16 Room Air I & O 07/22/20 07/22/20 07/23/20 15:00 23:00 07:00 Intake Total 580 ml 480 ml Output Total 700 ml Balance 580 ml -220 ml Labs: Laboratory Tests Test 07/22/20 11:35 07/22/20 12:04 07/22/20 17:22 07/22/20 19:12 White Blood Count 6.4 x10^3/uL (4.0-11.0) Red Blood Count 3.88 x10^6/uL (4.30-5.70) L Hemoglobin 12.6 g/dL (13.0-17.5) L Hematocrit 38.2 % (39.0-53.0) L Mean Corpuscular Volume 98 fL (79-100) Mean Corpuscular Hemoglobin 33 pg (25-35) Mean Corpuscular Hemoglobin Concent 33 g/dL (31-37) Red Cell Distribution Width 15.2 % (11.5-14.5) H Platelet Count 66 x10^3/uL (140-400) L Neutrophils (%) (Auto) 68 % (31-73) Lymphocytes (%) (Auto) 19 % (24-48) L Monocytes (%) (Auto) 6 % (0-9) Eosinophils (%) (Auto) 6 % (0-3) H Basophils (%) (Auto) 1 % (0-3) Neutrophils # (Auto) 4.4 x10^3uL (1.8-7.7) Lymphocytes # (Auto) 1.2 x10^3/uL (1.0-4.8) Monocytes # (Auto) 0.4 x10^3/uL (0.0-1.1) Eosinophils # (Auto) 0.4 x10^3/uL (0.0-0.7) Basophils # (Auto) 0.0 x10^3/uL (0.0-0.2) Sodium Level 151 mmol/L (136-145) H Potassium Level 4.5 mmol/L (3.5-5.1) Chloride Level 115 mmol/L (98-107) H Carbon Dioxide Level 25 mmol/L (21-32) Anion Gap 11 (6-14) Blood Urea Nitrogen 40 mg/dL (8-26) H Creatinine 1.5 mg/dL (0.7-1.3) H Estimated GFR (Cockcroft-Gault) 45.5 BUN/Creatinine Ratio 27 (6-20) H Glucose Level 133 mg/dL (70-99) H Calcium Level 9.0 mg/dL (8.5-10.1) Total Bilirubin 1.0 mg/dL (0.2-1.0) Aspartate Amino Transferase (AST) 30 U/L (15-37) Alanine Aminotransferase (ALT) 30 U/L (16-63) Alkaline Phosphatase 95 U/L (46-116) Total Protein 7.2 g/dL (6.4-8.2) Albumin 2.6 g/dL (3.4-5.0) L Albumin/Globulin Ratio 0.6 (1.0-1.7) L Valproic Acid Level 18 mcg/mL (50-100) L Valproic Acid Last Dose Date 07/21/2020 Valproic Acid Last Dose Time 1700 Glucose (Fingerstick) 124 mg/dL (70-99) H 115 mg/dL (70-99) H 124 mg/dL (70-99) H Test 07/22/20 19:50 07/23/20 07:48 Ammonia 62 mcmol/L (11-34) H Glucose (Fingerstick) 90 mg/dL (70-99) Current Medications: Meds: Laboratory Tests Test 07/22/20 11:35 07/22/20 12:04 07/22/20 17:22 07/22/20 19:12 White Blood Count 6.4 x10^3/uL Red Blood Count 3.88 x10^6/uL Hemoglobin 12.6 g/dL Hematocrit 38.2 % Mean Corpuscular Volume 98 fL Mean Corpuscular Hemoglobin 33 pg Mean Corpuscular Hemoglobin Concent 33 g/dL Red Cell Distribution Width 15.2 % Platelet Count 66 x10^3/uL Neutrophils (%) (Auto) 68 % Lymphocytes (%) (Auto) 19 % Monocytes (%) (Auto) 6 % Eosinophils (%) (Auto) 6 % Basophils (%) (Auto) 1 % Neutrophils # (Auto) 4.4 x10^3uL Lymphocytes # (Auto) 1.2 x10^3/uL Monocytes # (Auto) 0.4 x10^3/uL Eosinophils # (Auto) 0.4 x10^3/uL Basophils # (Auto) 0.0 x10^3/uL Sodium Level 151 mmol/L Potassium Level 4.5 mmol/L Chloride Level 115 mmol/L Carbon Dioxide Level 25 mmol/L Anion Gap 11 Blood Urea Nitrogen 40 mg/dL Creatinine 1.5 mg/dL Estimated GFR (Cockcroft-Gault) 45.5 BUN/Creatinine Ratio 27 Glucose Level 133 mg/dL Calcium Level 9.0 mg/dL Total Bilirubin 1.0 mg/dL Aspartate Amino Transf (AST/SGOT) 30 U/L Alanine Aminotransferase (ALT/SGPT) 30 U/L Alkaline Phosphatase 95 U/L Total Protein 7.2 g/dL Albumin 2.6 g/dL Albumin/Globulin Ratio 0.6 Valproic Acid (Depakene) Level 18 mcg/mL Valproic Acid Last Dose Date 07/21/2020 Valproic Acid Last Dose Time 1700 Glucose (Fingerstick) 124 mg/dL 115 mg/dL 124 mg/dL Test 07/22/20 19:50 07/23/20 07:48 Ammonia 62 mcmol/L Glucose (Fingerstick) 90 mg/dL Current Medications Medications (Trade) Dose Ordered Sig/Michell Route PRN Reason Start Time Stop Time Status Last Admin Dose Admin Non-Formulary Medication (Non Formulary Item (Zhfub-Uxaxxt-Zlhyu)) 1 ea PRN Q6HRS PRN TP AGITATION 07/10/20 17:15 07/20/20 10:30 Acetaminophen (Tylenol) 650 mg PRN Q6HRS PRN PO MILD PAIN / TEMP > 100.3'F 07/10/20 18:30 Multi-Ingredient Ointment (Analgesic [place]) 1 loyd PRN QID PRN TP MUSCLE PAIN 07/10/20 18:30 Al Hydroxide/Mg Hydroxide (Mylanta Plus Xs) 15 ml PRN AFTMEALHC PRN PO DYSPEPSIA 07/10/20 18:30 Magnesium Hydroxide (Milk Of Magnesia) 2,400 mg PRN QHS PRN PO CONSTIPATION 07/10/20 18:30 Allopurinol (Zyloprim) 100 mg BID PO 07/10/20 21:00 07/23/20 08:21 Vitamin D (Vitamin D3) 1,000 unit DAILY PO 07/11/20 09:00 07/23/20 08:21 Glucose (Insta-Glucose) 15 gm PRN Q15MIN PRN PO HYPOGLYCEMIA 07/10/20 18:30 Dextrose (Dextrose 50%-Water Syringe) 25 gm PRN Q15MIN PRN IV HYPOGLYCEMIA 07/10/20 18:30 Ferrous Sulfate (Feosol) 325 mg BIDWMEALS PO 07/11/20 08:00 07/23/20 08:22 Finasteride (Proscar) 5 mg DAILY PO 07/11/20 09:00 07/23/20 08:21 Gabapentin (Neurontin) 100 mg TID PO 07/10/20 21:00 07/23/20 08:20 Insulin Glargine (Lantus Syringe) 30 unit HS SQ 07/10/20 21:00 07/22/20 21:25 Insulin Human Lispro (HumaLOG) 5 units TIDWMEALS PRN SQ FSBS GREATER THAN 400 07/10/20 18:45 Lisinopril (Prinivil) 10 mg DAILY PO 07/11/20 09:00 07/22/20 09:01 Metoprolol Tartrate (Lopressor) 25 mg DAILY PO 07/11/20 09:00 07/22/20 09:00 Olanzapine (ZyPREXA) 5 mg BID PO 07/10/20 21:00 07/22/20 18:55 DC 07/22/20 09:00 Ondansetron HCl (Zofran Odt) 4 mg PRN Q8HRS PRN PO NAUSEA 07/10/20 18:30 Pantoprazole Sodium (Protonix) 40 mg BIDWMEALS PO 07/11/20 08:00 07/23/20 08:21 Sucralfate (Carafate) 1 gm QIDACHS PO 07/10/20 21:00 07/23/20 08:21 Tamsulosin HCl (Flomax) 0.4 mg HS PO 07/10/20 21:00 07/21/20 17:34 DC 07/20/20 20:19 Tramadol HCl (Ultram) 50 mg BID PO 07/10/20 21:00 07/23/20 08:21 Lactobacillus Rhamnosus (Culturelle) 1 cap BID PO 07/10/20 21:00 07/23/20 08:21 Glimepiride (Amaryl) 4 mg BIDWMEALS PO 07/11/20 08:00 07/23/20 08:21 Non-Formulary Medication (Glucagon,Human Recombinant (Glucagon Emergency Kit)) 1 mg PRN PRN IM HYPOGLYCEMIA 07/10/20 18:30 UNV Lactulose (Lactulose) 20 gm TID PO 07/10/20 21:00 07/23/20 08:21 Polyethylene Glycol (miraLAX) 17 gm DAILY PO 07/11/20 09:00 07/23/20 08:22 Non-Formulary Medication ([Abh Topical Cream] ) 0.5 ml Q6HRS PRN TOP AGITATION 07/10/20 18:30 07/11/20 07:18 DC Mirtazapine (Remeron) 7.5 mg QHS PO 07/13/20 21:00 07/14/20 18:47 DC 07/13/20 19:50 Divalproex Sodium (Depakote Sprinkles) 125 mg BID@0900,1700 PO 07/14/20 09:00 07/18/20 18:49 DC 07/18/20 17:29 Trazodone HCl (Desyrel) 50 mg PRN QHS PRN PO INSOMNIA 07/13/20 21:45 07/19/20 19:42 Mirtazapine (Remeron) 15 mg QHS PO 07/14/20 21:00 07/21/20 18:30 DC 07/20/20 20:19 Melatonin (Melatonin) 3 mg QHS PO 07/17/20 21:00 07/22/20 19:51 Divalproex Sodium (Depakote Sprinkles) 250 mg BID@0900,1700 PO 07/19/20 09:00 07/22/20 18:55 DC 07/22/20 16:32 Sertraline HCl (Zoloft) 25 mg DAILY PO 07/19/20 09:00 07/21/20 23:50 DC 07/21/20 08:36 Sertraline HCl (Zoloft) 50 mg DAILY PO 07/22/20 09:00 07/23/20 08:21 Cefdinir (Omnicef) 300 mg BID PO 07/21/20 21:00 07/23/20 08:21 Tamsulosin HCl (Flomax) 0.8 mg HS PO 07/21/20 17:45 07/21/20 18:39 DC Mirtazapine (Remeron) 7.5 mg QHS PO 07/21/20 21:00 07/22/20 19:51 Tamsulosin HCl (Flomax) 0.8 mg HS PO 07/21/20 21:00 07/22/20 19:52 I have reviewed the current psychotropics carefully including drug interactions. Risk benefit ratio favors no change other than as noted in my dictated progress note. Diagnosis: Problems: (1) Impulse control disorder, unspecified (2) Anxiety disorder, unspecified (3) Dementia, vascular, with depression (4) Dementia, vascular, with delusions (5) Dementia in Alzheimer's disease with depression (6) Dementia in Alzheimer's disease with delusions (7) Dementia of the Alzheimer's type with early onset with behavioral disturbance (8) Major neurocognitive disorder ASIM SPANGLER MD Jul 23, 2020 09:49
--- NOTE | 2020-07-23 13:28 | NUR ---
MCKENZIE contacted Adriana at [facility] and gave her an update on pt. Adriana did report that they would be able to accept pt once his behaviors were better under control/regulated. Adriana asked MCKENZIE to send updated notes; MCKENZIE informed Adriana that pt would be teamed on Sunday with the understanding that pt would discharge next week. MCKENZIE can follow up with Adriana on this on Sunday after treatment team.
--- NOTE | 2020-07-23 14:35 | NUR ---
MCKENZIE contacted pt , Tiffanie, who was upset as she has attempted the last few days to get an update on pt and has been told that staff is too busy to talk to her. She stated "it takes 2 minutes for them to give me an update". SW will express this concern to nursing but also informed Tiffanie that if nursing is not available, she can always ask for SW also. SW can give her that update and spend a bit more time on the phone to make sure all of her concerns and questioned are addressed. MCKENZIE did inform Tiffanie of pt behaviors and medical concerns surrounding his labs/UTI and the hartmann. MCKENZIE informed Tiffanie that SW spoke with the facility this morning and sent over updated notes. Once pt can be better medically stable, then we can look at sending him to the facility closer to home. Tiffanie was appreciative of SW time and again reiterated that if nursing was not available to give an update on pt, she can ask for SW.
[2020-07-23 15:52] VITALS: BP 126/70
[2020-07-23] MEDS: IV DEXTROSE 5% 1,000 ML IV SCH (17:30)
--- NOTE | 2020-07-23 18:29 | NUR ---
NSG NOTE; SHIFT SUMMARY pt cont to be lethargic, having to be fed at breakfast, taking in only a little. he refused lunch and dinner, letting the food and drink just run out of his mouth without attempting to swallow. dr barrios notified; iv started with D5W at 100 ml/hr
[2020-07-23] MEDS: MELATONIN 3 MG TABLET PO SCH (21:00)
[2020-07-23] MEDS: TAMSULOSIN 0.4 MG CAP.ER.24H. PO SCH (21:00)
[2020-07-23] MEDS: INSULIN GLARGINE SYRINGE. SQ SCH (21:06)
[2020-07-23] MEDS: traZODone 50 MG TABLET. PO PRN (22:00)
--- NOTE | 2020-07-23 22:03 | PDOC ---
Exam Note: Harshil Note: Please also refer to the separate dictated note~for this date of service dictated separately.~Patient seen individually. Discussed the patient with Nursing staff reviewed the chart.~Reviewed interim history and current functioning. Reviewed vital signs,~Labs/ Radiology~and current medications noted below. Continue current treatment with the changes noted in the dictated addendum note Assessment: Vital Signs/I&O: Vital Signs Date Time Temp Pulse Resp B/P (MAP) Pulse Ox O2 Delivery O2 Flow Rate FiO2 07/23/20 15:52 97.3 101 18 126/70 (88) 96 07/22/20 06:16 Room Air I & O 07/22/20 07/22/20 07/23/20 15:00 23:00 07:00 Intake Total 580 ml 480 ml Output Total 700 ml Balance 580 ml -220 ml Labs: Laboratory Tests Test 07/23/20 07:48 07/23/20 12:01 07/23/20 17:20 07/23/20 19:13 Glucose (Fingerstick) 90 mg/dL (70-99) 165 mg/dL (70-99) H 171 mg/dL (70-99) H 195 mg/dL (70-99) H Current Medications: Meds: Laboratory Tests Test 07/23/20 07:48 07/23/20 12:01 07/23/20 17:20 07/23/20 19:13 Glucose (Fingerstick) 90 mg/dL 165 mg/dL 171 mg/dL 195 mg/dL Current Medications Medications (Trade) Dose Ordered Sig/Michell Route PRN Reason Start Time Stop Time Status Last Admin Dose Admin Non-Formulary Medication (Non Formulary Item (Rhqfw-Mnfcyf-Zqigw)) 1 ea PRN Q6HRS PRN TP AGITATION 07/10/20 17:15 07/20/20 10:30 Acetaminophen (Tylenol) 650 mg PRN Q6HRS PRN PO MILD PAIN / TEMP > 100.3'F 07/10/20 18:30 Multi-Ingredient Ointment (Analgesic [place]) 1 loyd PRN QID PRN TP MUSCLE PAIN 07/10/20 18:30 Al Hydroxide/Mg Hydroxide (Mylanta Plus Xs) 15 ml PRN AFTMEALHC PRN PO DYSPEPSIA 07/10/20 18:30 Magnesium Hydroxide (Milk Of Magnesia) 2,400 mg PRN QHS PRN PO CONSTIPATION 07/10/20 18:30 Allopurinol (Zyloprim) 100 mg BID PO 07/10/20 21:00 07/23/20 08:21 Vitamin D (Vitamin D3) 1,000 unit DAILY PO 07/11/20 09:00 07/23/20 08:21 Glucose (Insta-Glucose) 15 gm PRN Q15MIN PRN PO HYPOGLYCEMIA 07/10/20 18:30 Dextrose (Dextrose 50%-Water Syringe) 25 gm PRN Q15MIN PRN IV HYPOGLYCEMIA 07/10/20 18:30 Ferrous Sulfate (Feosol) 325 mg BIDWMEALS PO 07/11/20 08:00 07/23/20 16:05 Finasteride (Proscar) 5 mg DAILY PO 07/11/20 09:00 07/23/20 08:21 Gabapentin (Neurontin) 100 mg TID PO 07/10/20 21:00 07/23/20 16:02 Insulin Glargine (Lantus Syringe) 30 unit HS SQ 07/10/20 21:00 07/23/20 21:06 Insulin Human Lispro (HumaLOG) 5 units TIDWMEALS PRN SQ FSBS GREATER THAN 400 07/10/20 18:45 07/23/20 18:17 DC Lisinopril (Prinivil) 10 mg DAILY PO 07/11/20 09:00 07/22/20 09:01 Metoprolol Tartrate (Lopressor) 25 mg DAILY PO 07/11/20 09:00 07/22/20 09:00 Olanzapine (ZyPREXA) 5 mg BID PO 07/10/20 21:00 07/22/20 18:55 DC 07/22/20 09:00 Ondansetron HCl (Zofran Odt) 4 mg PRN Q8HRS PRN PO NAUSEA 07/10/20 18:30 Pantoprazole Sodium (Protonix) 40 mg BIDWMEALS PO 07/11/20 08:00 07/23/20 16:02 Sucralfate (Carafate) 1 gm QIDACHS PO 07/10/20 21:00 07/23/20 16:02 Tamsulosin HCl (Flomax) 0.4 mg HS PO 07/10/20 21:00 07/21/20 17:34 DC 07/20/20 20:19 Tramadol HCl (Ultram) 50 mg BID PO 07/10/20 21:00 07/23/20 08:21 Lactobacillus Rhamnosus (Culturelle) 1 cap BID PO 07/10/20 21:00 07/23/20 08:21 Glimepiride (Amaryl) 4 mg BIDWMEALS PO 07/11/20 08:00 07/23/20 16:05 Non-Formulary Medication (Glucagon,Human Recombinant (Glucagon Emergency Kit)) 1 mg PRN PRN IM HYPOGLYCEMIA 07/10/20 18:30 UNV Lactulose (Lactulose) 20 gm TID PO 07/10/20 21:00 07/23/20 16:02 Polyethylene Glycol (miraLAX) 17 gm DAILY PO 07/11/20 09:00 07/23/20 08:22 Non-Formulary Medication ([Abh Topical Cream] ) 0.5 ml Q6HRS PRN TOP AGITATION 07/10/20 18:30 07/11/20 07:18 DC Mirtazapine (Remeron) 7.5 mg QHS PO 07/13/20 21:00 07/14/20 18:47 DC 07/13/20 19:50 Divalproex Sodium (Depakote Sprinkles) 125 mg BID@0900,1700 PO 07/14/20 09:00 07/18/20 18:49 DC 07/18/20 17:29 Trazodone HCl (Desyrel) 50 mg PRN QHS PRN PO INSOMNIA 07/13/20 21:45 07/19/20 19:42 Mirtazapine (Remeron) 15 mg QHS PO 07/14/20 21:00 07/21/20 18:30 DC 07/20/20 20:19 Melatonin (Melatonin) 3 mg QHS PO 07/17/20 21:00 07/22/20 19:51 Divalproex Sodium (Depakote Sprinkles) 250 mg BID@0900,1700 PO 07/19/20 09:00 07/22/20 18:55 DC 07/22/20 16:32 Sertraline HCl (Zoloft) 25 mg DAILY PO 07/19/20 09:00 07/21/20 23:50 DC 07/21/20 08:36 Sertraline HCl (Zoloft) 50 mg DAILY PO 07/22/20 09:00 07/23/20 08:21 Cefdinir (Omnicef) 300 mg BID PO 07/21/20 21:00 07/23/20 08:21 Tamsulosin HCl (Flomax) 0.8 mg HS PO 07/21/20 17:45 07/21/20 18:39 DC Mirtazapine (Remeron) 7.5 mg QHS PO 07/21/20 21:00 07/23/20 18:01 DC 07/22/20 19:51 Tamsulosin HCl (Flomax) 0.8 mg HS PO 07/21/20 21:00 07/22/20 19:52 Dextrose 1,000 ml @ 100 mls/hr Q10H IV 07/23/20 17:30 07/23/20 17:30 Insulin Human Lispro (HumaLOG) 0-7 UNITS TIDWMEALS SQ 07/24/20 18:30 Current Medications Medications (Trade) Dose Ordered Sig/Michell Route PRN Reason Start Time Stop Time Status Last Admin Dose Admin Dextrose 1,000 ml @ 100 mls/hr Q10H IV 07/23/20 17:30 07/23/20 17:30 I have reviewed the current psychotropics carefully including drug interactions. Risk benefit ratio favors no change other than as noted in my dictated progress note. Diagnosis: Problems: (1) Impulse control disorder, unspecified (2) Anxiety disorder, unspecified (3) Dementia, vascular, with depression (4) Dementia, vascular, with delusions (5) Dementia in Alzheimer's disease with depression (6) Dementia in Alzheimer's disease with delusions (7) Dementia of the Alzheimer's type with early onset with behavioral di sturbance (8) Major neurocognitive disorder ASIM SPANGLER MD Jul 23, 2020 22:03
--- NOTE | 2020-07-24 00:50 | NUR ---
Nursing note: Pt sleeping but arousable at beginning of shift; did not cooperate with medications crushed in pudding, refused to open mouth. At approx. 2200, pt began moving arms out toward something in front of him, generally restless, pushing against table and Broda chair. Trazadone given for agitation. Still unable to give remaining medications. To bed from Broda x2, moderate assist. Pt was passing gas and had a smear of BM at this time; cleaned rober area, wound dressed. Bladder scanner showed >[address] per orders, 500mL out.
--- NOTE | 2020-07-24 01:44 | PN ---
DATE: 07/23/2020 SUBJECTIVE: The patient was seen today at the request of the nursing staff as he is very lethargic with extremely poor oral intake. His sodium is steadily rising. His Sodium is now 151. He is extremely dehydrated. He has also benign prostatic hypertrophy with bladder outlet obstruction for which he has an indwelling Dash catheter was removed. We have been scanning his bladder and straight cathing him. He has also UTI with a growth of more than 100,000 colony forming units per mL of Escherichia coli, sensitive to oral antibiotics and was on cefdinir 300 mg twice a day. PHYSICAL EXAMINATION: GENERAL: When I examined him this afternoon, he was resting in his recliner in no apparent respiratory distress. There was no pallor, jaundice, cyanosis, or thyromegaly. No jugular distention. No limb edema. VITAL SIGNS: His heart rate was 101, blood pressure is 126/70, temperature was 97.3, respiratory rate was 18, and oxygen saturation was 96%. HEAD, EYES, EARS, NOSE AND THROAT: Normocephalic, atraumatic. NECK: Supple. HEART: Showed normal first and second heart sounds. No gallop or murmur. CHEST: Clear to auscultation. No crepitation or rhonchi. ABDOMEN: Slightly distended, soft, nontender. NEUROLOGIC: He is very lethargic, arousable. All his cranial nerves intact. He moves extremities without difficulty. He was mostly bedbound and chair bound. INTAKE/OUTPUT: His intake over the last 24 hours was 600, no output was recorded. LABORATORY DATA: As of yesterday, his white cell count was 6400, hemoglobin 13, hematocrit 38, MCV 98 and platelet count of 66,000. His chemistry as of yesterday showed a serum sodium 151, potassium 4.5, chloride 115, bicarbonate 25, anion gap of 11, BUN 40, creatinine 1.5. Estimated GFR was 45 mL per minute. His glucose 133, calcium was 9. Total bilirubin, AST, ALT, and alkaline phosphatase were normal. Total protein 7.2, albumin was 2.6. ASSESSMENT AND PLAN: 1. Altered mental status. 2. Dehydration. 3. Acute kidney injury. 4. Hypernatremia. 5. Urinary tract infection. 6. Type 2 diabetes mellitus. PLAN: My plan is to start him on IV D5W and monitor his lab work closely. We might have to put an indwelling Dash catheter. AYAN DR: Gagan TID: [id number]
[2020-07-24] MEDS: IV DEXTROSE 5% 1,000 ML IV SCH ×3 (04:08→23:30)
[2020-07-24 06:07] VITALS: BP 112/53
--- NOTE | 2020-07-24 06:35 | PDOC ---
Exam Note: Harshil Note: This note is a late entry for 07/23/2020 covers elements not covered in my initial note. Subjective: The patient was seen individually in the evening of 07/23/2020 with Ester GLOVER, discussed and reviewed the chart. The patient slept 7-1/2 hours previous night. He remains confused, withdrawn. He remains on one-on-one status on Broda chair. He has been pulling out his IV line, having been started on D5W by Dr. Catherine for dehydration and his mitts have been placed on his hands. Foleys has been removed and he retains urine. We will defer to Dr. Catherine. Due to sedation, we will stop the Remeron 7.5 mg h.s. for now. Review of Systems: Ambulation impaired in Broda chair. No CV, , pulmonary, eye, ENT system symptoms on review. Reliability poor. Mental Status Exam: The patient is oriented to himself. Insight and judgment, recent and remote memory, attention and concentration, fund of knowledge is poor consistent with his diagnoses. Laboratory Data: Reviewed. Impression: Major neurocognitive disorder Alzheimer vascular with delusion, depression, behavioral disturbance. Anxiety disorder unspecified. Impulse control disorder unspecified. Plan: No change from initial note. Assessment: Vital Signs/I&O: Vital Signs Date Time Temp Pulse Resp B/P (MAP) Pulse Ox O2 Delivery O2 Flow Rate FiO2 07/24/20 06:07 97.9 102 16 112/53 (72) 92 Room Air I & O 07/23/20 07/23/20 07/24/20 15:00 23:00 07:00 Intake Total 200 ml 740 ml Output Total 500 ml Balance 200 ml 240 ml Labs: Laboratory Tests Test 07/23/20 07:48 07/23/20 12:01 07/23/20 17:20 07/23/20 19:13 Glucose (Fingerstick) 90 mg/dL (70-99) 165 mg/dL (70-99) H 171 mg/dL (70-99) H 195 mg/dL (70-99) H Current Medications: Meds: Laboratory Tests Test 07/23/20 07:48 07/23/20 12:01 07/23/20 17:20 07/23/20 19:13 Glucose (Fingerstick) 90 mg/dL 165 mg/dL 171 mg/dL 195 mg/dL Current Medications Medications (Trade) Dose Ordered Sig/Michell Route PRN Reason Start Time Stop Time Status Last Admin Dose Admin Non-Formulary Medication (Non Formulary Item ([id number]-Mzqomv-Xfxco)) 1 ea PRN Q6HRS PRN TP AGITATION 07/10/20 17:15 07/20/20 10:30 Acetaminophen (Tylenol) 650 mg PRN Q6HRS PRN PO MILD PAIN / TEMP > 100.3'F 07/10/20 18:30 Multi-Ingredient Ointment (Analgesic [place]) 1 loyd PRN QID PRN TP MUSCLE PAIN 07/10/20 18:30 Al Hydroxide/Mg Hydroxide (Mylanta Plus Xs) 15 ml PRN AFTMEALHC PRN PO DYSPEPSIA 07/10/20 18:30 Magnesium Hydroxide (Milk Of Magnesia) 2,400 mg PRN QHS PRN PO CONSTIPATION 07/10/20 18:30 Allopurinol (Zyloprim) 100 mg BID PO 07/10/20 21:00 07/23/20 08:21 Vitamin D (Vitamin D3) 1,000 unit DAILY PO 07/11/20 09:00 07/23/20 08:21 Glucose (Insta-Glucose) 15 gm PRN Q15MIN PRN PO HYPOGLYCEMIA 07/10/20 18:30 Dextrose (Dextrose 50%-Water Syringe) 25 gm PRN Q15MIN PRN IV HYPOGLYCEMIA 07/10/20 18:30 Ferrous Sulfate (Feosol) 325 mg BIDWMEALS PO 07/11/20 08:00 07/23/20 16:05 Finasteride (Proscar) 5 mg DAILY PO 07/11/20 09:00 07/23/20 08:21 Gabapentin (Neurontin) 100 mg TID PO 07/10/20 21:00 07/23/20 16:02 Insulin Glargine (Lantus Syringe) 30 unit HS SQ 07/10/20 21:00 07/23/20 21:06 Insulin Human Lispro (HumaLOG) 5 units TIDWMEALS PRN SQ FSBS GREATER THAN 400 07/10/20 18:45 07/23/20 18:17 DC Lisinopril (Prinivil) 10 mg DAILY PO 07/11/20 09:00 07/22/20 09:01 Metoprolol Tartrate (Lopressor) 25 mg DAILY PO 07/11/20 09:00 07/22/20 09:00 Olanzapine (ZyPREXA) 5 mg BID PO 07/10/20 21:00 07/22/20 18:55 DC 07/22/20 09:00 Ondansetron HCl (Zofran Odt) 4 mg PRN Q8HRS PRN PO NAUSEA 07/10/20 18:30 Pantoprazole Sodium (Protonix) 40 mg BIDWMEALS PO 07/11/20 08:00 07/23/20 16:02 Sucralfate (Carafate) 1 gm QIDACHS PO 07/10/20 21:00 07/23/20 16:02 Tamsulosin HCl (Flomax) 0.4 mg HS PO 07/10/20 21:00 07/21/20 17:34 DC 07/20/20 20:19 Tramadol HCl (Ultram) 50 mg BID PO 07/10/20 21:00 07/23/20 08:21 Lactobacillus Rhamnosus (Culturelle) 1 cap BID PO 07/10/20 21:00 07/23/20 08:21 Glimepiride (Amaryl) 4 mg BIDWMEALS PO 07/11/20 08:00 07/23/20 16:05 Non-Formulary Medication (Glucagon,Human Recombinant (Glucagon Emergency Kit)) 1 mg PRN PRN IM HYPOGLYCEMIA 07/10/20 18:30 UNV Lactulose (Lactulose) 20 gm TID PO 07/10/20 21:00 07/23/20 16:02 Polyethylene Glycol (miraLAX) 17 gm DAILY PO 07/11/20 09:00 07/23/20 08:22 Non-Formulary Medication ([Abh Topical Cream] ) 0.5 ml Q6HRS PRN TOP AGITATION 07/10/20 18:30 07/11/20 07:18 DC Mirtazapine (Remeron) 7.5 mg QHS PO 07/13/20 21:00 07/14/20 18:47 DC 07/13/20 19:50 Divalproex Sodium (Depakote Sprinkles) 125 mg BID@0900,1700 PO 07/14/20 09:00 07/18/20 18:49 DC 07/18/20 17:29 Trazodone HCl (Desyrel) 50 mg PRN QHS PRN PO INSOMNIA 07/13/20 21:45 07/23/20 22:00 Mirtazapine (Remeron) 15 mg QHS PO 07/14/20 21:00 07/21/20 18:30 DC 07/20/20 20:19 Melatonin (Melatonin) 3 mg QHS PO 07/17/20 21:00 07/22/20 19:51 Divalproex Sodium (Depakote Sprinkles) 250 mg BID@0900,1700 PO 07/19/20 09:00 07/22/20 18:55 DC 07/22/20 16:32 Sertraline HCl (Zoloft) 25 mg DAILY PO 07/19/20 09:00 07/21/20 23:50 DC 07/21/20 08:36 Sertraline HCl (Zoloft) 50 mg DAILY PO 07/22/20 09:00 07/23/20 08:21 Cefdinir (Omnicef) 300 mg BID PO 07/21/20 21:00 07/23/20 08:21 Tamsulosin HCl (Flomax) 0.8 mg HS PO 07/21/20 17:45 07/21/20 18:39 DC Mirtazapine (Remeron) 7.5 mg QHS PO 07/21/20 21:00 07/23/20 18:01 DC 07/22/20 19:51 Tamsulosin HCl (Flomax) 0.8 mg HS PO 07/21/20 21:00 07/22/20 19:52 Dextrose 1,000 ml @ 100 mls/hr Q10H IV 07/23/20 17:30 07/24/20 04:08 Insulin Human Lispro (HumaLOG) 0-7 UNITS TIDWMEALS SQ 07/24/20 18:30 Current Medications Medications (Trade) Dose Ordered Sig/Michell Route PRN Reason Start Time Stop Time Status Last Admin Dose Admin Dextrose 1,000 ml @ 100 mls/hr Q10H IV 07/23/20 17:30 07/24/20 04:08 I have reviewed the current psychotropics carefully including drug interactions. Risk benefit ratio favors no change other than as noted in my dictated progress note. Diagnosis: Problems: (1) Impulse control disorder, unspecified (2) Anxiety disorder, unspecified (3) Dementia, vascular, with depression (4) Dementia, vascular, with delusions (5) Dementia in Alzheimer's disease with depression (6) Dementia in Alzheimer's disease with delusions (7) Dementia of the Alzheimer's type with early onset with behavioral disturbance (8) Major neurocognitive disorder ASIM SPANGLER MD Jul 24, 2020 06:35
[2020-07-24] MEDS: LACTOBACILLUS RHAMNOSUS GG 1 CAPSULE. PO SCH ×2 (08:13→20:05)
[2020-07-24] MEDS: GLIMEPIRIDE 2 MG TABLET PO SCH ×2 (08:13→16:22)
[2020-07-24] MEDS: LACTULOSE 20 GM/30 ML SOLUTION. PO SCH ×3 (08:13→20:07)
[2020-07-24] MEDS: POLYETHYLENE GLYCOL 3350 17 GM PACKET. PO SCH (08:13)
[2020-07-24] MEDS: FERROUS SULFATE 325 MG TABLET. PO SCH ×2 (08:14→16:22)
[2020-07-24] MEDS: SERTRALINE 50 MG TABLET. PO SCH (08:14)
[2020-07-24] MEDS: GABAPENTIN 100 MG CAPSULE. PO SCH ×3 (08:14→20:06)
[2020-07-24] MEDS: traMADol 50 MG TABLET PO SCH ×2 (08:14→20:07)
[2020-07-24] MEDS: CHOLECALCIFEROL (VITAMIN D3) 1,000 UNIT TABLET PO SCH (08:14)
[2020-07-24] MEDS: FINASTERIDE 5 MG TABLET. PO SCH (08:14)
[2020-07-24] MEDS: CEFDINIR 300 MG CAPSULE PO SCH ×2 (08:14→20:05)
[2020-07-24] MEDS: ALLOPURINOL 100 MG TABLET. PO SCH ×2 (08:14→20:07)
[2020-07-24] MEDS: PANTOPRAZOLE 40 MG TABLET. PO SCH ×2 (08:14→16:22)
[2020-07-24] MEDS: SUCRALFATE 1 GM TABLET. PO SCH ×4 (08:14→20:06)
[2020-07-24] MEDS: LISINOPRIL 10 MG TABLET PO SCH (08:15)
[2020-07-24] MEDS: METOPROLOL TART IMMED RELEASE 25 MG TABLET. PO SCH (08:15)
[2020-07-24 10:09] LABS: HEMATOCRIT 35.1 % (39.0-53.0); HEMOGLOBIN 11.8 g/dL (13.0-17.5); RED BLOOD COUNT 3.59 x10^6/uL (4.30-5.70); RED CELL DISTRIBUTION WIDTH 15.5 % (11.5-14.5); WHITE BLOOD COUNT 5.8 x10^3/uL (4.0-11.0)
[2020-07-24 10:30] LABS: ALBUMIN 2.5 g/dL (3.4-5.0); ALBUMIN/GLOBULIN RATIO 0.6 (1.0-1.7); CALCIUM 8.9 mg/dL (8.5-10.1); CREATININE 1.5 mg/dL (0.7-1.3); GFR 45.5; POTASSIUM 3.7 mmol/L (3.5-5.1); TOTAL BILIRUBIN 1.1 mg/dL (0.2-1.0); TOTAL PROTEIN 6.9 g/dL (6.4-8.2)
[2020-07-24 15:53] VITALS: BP 121/79
[2020-07-24] MEDS: INSULIN LISPRO 300 UNITS/3 ML VIAL. SQ SCH (16:27)
--- NOTE | 2020-07-24 16:57 | NUR ---
Patient alert x1 very disorganized and restless slight agitation, will take meds with 1-2 bites in pudding. Patient IV secured and patient is in a onsie. Patient called for an update gave password and update was given. Patient seen by Dr Catherine no new orders just continue with the IV fluids. Patient was toileted by staff he had a large bowel movement and voided over 600cc no need to straight cath. Will continue to monitor patient. Addendum: 07/24/20 at 1734 by KELLY KILLIAN RN Per Dr Vignesh burger level Wednesday 07/26
[2020-07-24] MEDS: TAMSULOSIN 0.4 MG CAP.ER.24H. PO SCH (20:05)
[2020-07-24] MEDS: traZODone 50 MG TABLET. PO PRN ×2 (20:05→22:23)
[2020-07-24] MEDS: MELATONIN 3 MG TABLET PO SCH (20:07)
[2020-07-24] MEDS: INSULIN GLARGINE SYRINGE. SQ SCH (20:33)
--- NOTE | 2020-07-24 21:58 | PDOC ---
Exam Note: Harshil Note: Please also refer to the separate dictated note~for this date of service dictated separately.~Patient seen individually. Discussed the patient with Nursing staff reviewed the chart.~Reviewed interim history and current functioning. Reviewed vital signs,~Labs/ Radiology~and current medications noted below. Continue current treatment with the changes noted in the dictated addendum note Assessment: Vital Signs/I&O: Vital Signs Date Time Temp Pulse Resp B/P (MAP) Pulse Ox O2 Delivery O2 Flow Rate FiO2 07/24/20 20:36 20 97 Room Air 07/24/20 15:53 97.5 77 121/79 (93) I & O 07/23/20 07/23/20 07/24/20 14:59 22:59 06:59 Intake Total 200 ml 740 ml Output Total 500 ml Balance 200 ml 240 ml Labs: Laboratory Tests Test 07/24/20 07:54 07/24/20 09:58 07/24/20 11:26 07/24/20 16:13 Glucose (Fingerstick) 89 mg/dL (70-99) 190 mg/dL (70-99) H 194 mg/dL (70-99) H White Blood Count 5.8 x10^3/uL (4.0-11.0) Red Blood Count 3.59 x10^6/uL (4.30-5.70) L Hemoglobin 11.8 g/dL (13.0-17.5) L Hematocrit 35.1 % (39.0-53.0) L Mean Corpuscular Volume 98 fL (79-100) Mean Corpuscular Hemoglobin 33 pg (25-35) Mean Corpuscular Hemoglobin Concent 34 g/dL (31-37) Red Cell Distribution Width 15.5 % (11.5-14.5) H Platelet Count 64 x10^3/uL (140-400) L Sodium Level 147 mmol/L (136-145) H Potassium Level 3.7 mmol/L (3.5-5.1) Chloride Level 113 mmol/L (98-107) H Carbon Dioxide Level 24 mmol/L (21-32) Anion Gap 10 (6-14) Blood Urea Nitrogen 43 mg/dL (8-26) H Creatinine 1.5 mg/dL (0.7-1.3) H Estimated GFR (Cockcroft-Gault) 45.5 BUN/Creatinine Ratio 29 (6-20) H Glucose Level 152 mg/dL (70-99) H Calcium Level 8.9 mg/dL (8.5-10.1) Total Bilirubin 1.1 mg/dL (0.2-1.0) H Aspartate Amino Transferase (AST) 35 U/L (15-37) Alanine Aminotransferase (ALT) 26 U/L (16-63) Alkaline Phosphatase 91 U/L (46-116) Total Protein 6.9 g/dL (6.4-8.2) Albumin 2.5 g/dL (3.4-5.0) L Albumin/Globulin Ratio 0.6 (1.0-1.7) L Test 07/24/20 19:08 Glucose (Fingerstick) 158 mg/dL (70-99) H Current Medications: Meds: Laboratory Tests Test 07/24/20 07:54 07/24/20 09:58 07/24/20 11:26 07/24/20 16:13 Glucose (Fingerstick) 89 mg/dL 190 mg/dL 194 mg/dL White Blood Count 5.8 x10^3/uL Red Blood Count 3.59 x10^6/uL Hemoglobin 11.8 g/dL Hematocrit 35.1 % Mean Corpuscular Volume 98 fL Mean Corpuscular Hemoglobin 33 pg Mean Corpuscular Hemoglobin Concent 34 g/dL Red Cell Distribution Width 15.5 % Platelet Count 64 x10^3/uL Sodium Level 147 mmol/L Potassium Level 3.7 mmol/L Chloride Level 113 mmol/L Carbon Dioxide Level 24 mmol/L Anion Gap 10 Blood Urea Nitrogen 43 mg/dL Creatinine 1.5 mg/dL Estimated GFR (Cockcroft-Gault) 45.5 BUN/Creatinine Ratio 29 Glucose Level 152 mg/dL Calcium Level 8.9 mg/dL Total Bilirubin 1.1 mg/dL Aspartate Amino Transf (AST/SGOT) 35 U/L Alanine Aminotransferase (ALT/SGPT) 26 U/L Alkaline Phosphatase 91 U/L Total Protein 6.9 g/dL Albumin 2.5 g/dL Albumin/Globulin Ratio 0.6 Test 07/24/20 19:08 Glucose (Fingerstick) 158 mg/dL Current Medications Medications (Trade) Dose Ordered Sig/Michell Route PRN Reason Start Time Stop Time Status Last Admin Dose Admin Non-Formulary Medication (Non Formulary Item (Nwjcn-Ejnezv-Neseb)) 1 ea PRN Q6HRS PRN TP AGITATION 07/10/20 17:15 07/20/20 10:30 Acetaminophen (Tylenol) 650 mg PRN Q6HRS PRN PO MILD PAIN / TEMP > 100.3'F 07/10/20 18:30 Multi-Ingredient Ointment (Analgesic [place]) 1 loyd PRN QID PRN TP MUSCLE PAIN 07/10/20 18:30 Al Hydroxide/Mg Hydroxide (Mylanta Plus Xs) 15 ml PRN AFTMEALHC PRN PO DYSPEPSIA 07/10/20 18:30 Magnesium Hydroxide (Milk Of Magnesia) 2,400 mg PRN QHS PRN PO CONSTIPATION 07/10/20 18:30 Allopurinol (Zyloprim) 100 mg BID PO 07/10/20 21:00 07/24/20 20:07 Vitamin D (Vitamin D3) 1,000 unit DAILY PO 07/11/20 09:00 07/24/20 08:14 Glucose (Insta-Glucose) 15 gm PRN Q15MIN PRN PO HYPOGLYCEMIA 07/10/20 18:30 Dextrose (Dextrose 50%-Water Syringe) 25 gm PRN Q15MIN PRN IV HYPOGLYCEMIA 07/10/20 18:30 Ferrous Sulfate (Feosol) 325 mg BIDWMEALS PO 07/11/20 08:00 07/24/20 16:22 Finasteride (Proscar) 5 mg DAILY PO 07/11/20 09:00 07/24/20 08:14 Gabapentin (Neurontin) 100 mg TID PO 07/10/20 21:00 07/24/20 20:06 Insulin Glargine (Lantus Syringe) 30 unit HS SQ 07/10/20 21:00 07/24/20 20:33 Insulin Human Lispro (HumaLOG) 5 units TIDWMEALS PRN SQ FSBS GREATER THAN 400 07/10/20 18:45 07/23/20 18:17 DC Lisinopril (Prinivil) 10 mg DAILY PO 07/11/20 09:00 07/24/20 08:15 Metoprolol Tartrate (Lopressor) 25 mg DAILY PO 07/11/20 09:00 07/24/20 08:15 Olanzapine (ZyPREXA) 5 mg BID PO 07/10/20 21:00 07/22/20 18:55 DC 07/22/20 09:00 Ondansetron HCl (Zofran Odt) 4 mg PRN Q8HRS PRN PO NAUSEA 07/10/20 18:30 Pantoprazole Sodium (Protonix) 40 mg BIDWMEALS PO 07/11/20 08:00 07/24/20 16:22 Sucralfate (Carafate) 1 gm QIDACHS PO 07/10/20 21:00 07/24/20 20:06 Tamsulosin HCl (Flomax) 0.4 mg HS PO 07/10/20 21:00 07/21/20 17:34 DC 07/20/20 20:19 Tramadol HCl (Ultram) 50 mg BID PO 07/10/20 21:00 07/24/20 20:07 Lactobacillus Rhamnosus (Culturelle) 1 cap BID PO 07/10/20 21:00 07/24/20 20:05 Glimepiride (Amaryl) 4 mg BIDWMEALS PO 07/11/20 08:00 07/24/20 16:22 Non-Formulary Medication (Glucagon,Human Recombinant (Glucagon Emergency Kit)) 1 mg PRN PRN IM HYPOGLYCEMIA 07/10/20 18:30 UNV Lactulose (Lactulose) 20 gm TID PO 07/10/20 21:00 07/24/20 20:07 Polyethylene Glycol (miraLAX) 17 gm DAILY PO 07/11/20 09:00 07/24/20 08:13 Non-Formulary Medication ([Abh Topical Cream] ) 0.5 ml Q6HRS PRN TOP AGITATION 07/10/20 18:30 07/11/20 07:18 DC Mirtazapine (Remeron) 7.5 mg QHS PO 07/13/20 21:00 07/14/20 18:47 DC 07/13/20 19:50 Divalproex Sodium (Depakote Sprinkles) 125 mg BID@0900,1700 PO 07/14/20 09:00 07/18/20 18:49 DC 07/18/20 17:29 Trazodone HCl (Desyrel) 50 mg PRN QHS PRN PO INSOMNIA 07/13/20 21:45 07/24/20 20:05 Mirtazapine (Remeron) 15 mg QHS PO 07/14/20 21:00 07/21/20 18:30 DC 07/20/20 20:19 Melatonin (Melatonin) 3 mg QHS PO 07/17/20 21:00 07/24/20 20:07 Divalproex Sodium (Depakote Sprinkles) 250 mg BID@0900,1700 PO 07/19/20 09:00 07/22/20 18:55 DC 07/22/20 16:32 Sertraline HCl (Zoloft) 25 mg DAILY PO 07/19/20 09:00 07/21/20 23:50 DC 07/21/20 08:36 Sertraline HCl (Zoloft) 50 mg DAILY PO 07/22/20 09:00 07/24/20 08:14 Cefdinir (Omnicef) 300 mg BID PO 07/21/20 21:00 07/24/20 20:05 Tamsulosin HCl (Flomax) 0.8 mg HS PO 07/21/20 17:45 07/21/20 18:39 DC Mirtazapine (Remeron) 7.5 mg QHS PO 07/21/20 21:00 07/23/20 18:01 DC 07/22/20 19:51 Tamsulosin HCl (Flomax) 0.8 mg HS PO 07/21/20 21:00 07/24/20 20:05 Dextrose 1,000 ml @ 100 mls/hr Q10H IV 07/23/20 17:30 07/24/20 13:23 Insulin Human Lispro (HumaLOG) 0-7 UNITS TIDWMEALS SQ 07/24/20 18:30 07/24/20 16:27 Current Medications Medications (Trade) Dose Ordered Sig/Michell Route PRN Reason Start Time Stop Time Status Last Admin Dose Admin Insulin Human Lispro (HumaLOG) 0-7 UNITS TIDWMEALS SQ 07/24/20 18:30 07/24/20 16:27 I have reviewed the current psychotropics carefully including drug interactions. Risk benefit ratio favors no change other than as noted in my dictated progress note. Diagnosis: Problems: (1) Impulse control disorder, unspecified (2) Anxiety disorder, unspecified (3) Dementia, vascular, with depression (4) Dementia, vascular, with delusions (5) Dementia in Alzheimer's disease with depression (6) Dementia in Alzheimer's disease with delusions (7) Dementia of the Alzheimer's type with early onset with behavioral disturbance (8) Major neurocognitive disorder ASIM SPANGLER MD Jul 24, 2020 21:58
[2020-07-24] MEDS: MIRTAZAPINE 7.5 MG TABLET. PO SCH (22:22)
[2020-07-25] MEDS: [UNRECOGNIZED DRUG - OTHER] TP PRN (01:01)
[2020-07-25] MEDS: traZODone 50 MG TABLET. PO PRN ×2 (01:02→20:28)
--- NOTE | 2020-07-25 06:07 | NUR ---
Pt sitting in dayroom during med pass. He is oriented to self only that I can discern. Words are garbled most of the time. Through the night, pt slept most of the time He awoke with hollering and trying to climb out of bed. Pt had a BM; after a brief change and PRN meds given, pt slept soundly.
[2020-07-25 06:18] VITALS: BP 100/64
[2020-07-25] MEDS: INSULIN LISPRO 300 UNITS/3 ML VIAL. SQ SCH ×3 (09:00→17:40)
[2020-07-25] MEDS: LACTULOSE 20 GM/30 ML SOLUTION. PO SCH ×3 (09:00→21:00)
[2020-07-25] MEDS: FINASTERIDE 5 MG TABLET. PO SCH (09:19)
[2020-07-25] MEDS: CEFDINIR 300 MG CAPSULE PO SCH ×2 (09:21→20:28)
[2020-07-25] MEDS: LACTOBACILLUS RHAMNOSUS GG 1 CAPSULE. PO SCH ×2 (09:21→21:00)
[2020-07-25] MEDS: traMADol 50 MG TABLET PO SCH ×2 (09:21→20:28)
[2020-07-25] MEDS: CHOLECALCIFEROL (VITAMIN D3) 1,000 UNIT TABLET PO SCH (09:21)
[2020-07-25] MEDS: METOPROLOL TART IMMED RELEASE 25 MG TABLET. PO SCH (09:22)
[2020-07-25] MEDS: GLIMEPIRIDE 2 MG TABLET PO SCH ×2 (09:22→17:31)
[2020-07-25] MEDS: GABAPENTIN 100 MG CAPSULE. PO SCH ×3 (09:22→20:28)
[2020-07-25] MEDS: ALLOPURINOL 100 MG TABLET. PO SCH ×2 (09:22→21:00)
[2020-07-25] MEDS: LISINOPRIL 10 MG TABLET PO SCH (09:22)
[2020-07-25] MEDS: SERTRALINE 50 MG TABLET. PO SCH (09:23)
[2020-07-25] MEDS: SUCRALFATE 1 GM TABLET. PO SCH ×4 (09:23→21:00)
[2020-07-25] MEDS: PANTOPRAZOLE 40 MG TABLET. PO SCH ×2 (09:23→17:31)
[2020-07-25] MEDS: FERROUS SULFATE 325 MG TABLET. PO SCH ×2 (09:23→17:31)
[2020-07-25] MEDS: POLYETHYLENE GLYCOL 3350 17 GM PACKET. PO SCH (09:50)
--- NOTE | 2020-07-25 09:59 | PDOC ---
Exam Note: Harshil Note: This note is a late entry for 07/24/2020 covers elements not covered in my initial note. Subjective: The patient was seen individually in the evening of 07/24/2020 with Robert GLOVER, discussed and reviewed the chart. The patient slept 3-3/4 hours previous night. He has been restless, but did urinate on his own. Flomax was increased. He remains on D5W at 100 cc/hour. We will repeat ammonia level in 2 days. Review of Systems: Ambulation impaired in Broda chair. No CV, , pulmonary, eye, ENT system symptoms on review. Mental Status Exam: The patient is oriented to himself. Insight and judgment, recent and remote memory, attention and concentration, fund of knowledge is poor consistent with his diagnoses. Laboratory Data: Reviewed. Impression: Major neurocognitive disorder Alzheimer vascular with delusion, depression, behavioral disturbance. Anxiety disorder unspecified. Impulse control disorder unspecified. Plan: No change from initial note. Assessment: Vital Signs/I&O: Vital Signs Date Time Temp Pulse Resp B/P (MAP) Pulse Ox O2 Delivery O2 Flow Rate FiO2 07/25/20 06:18 97.2 57 20 100/64 (76) 92 Room Air I & O 07/24/20 07/24/20 07/25/20 15:00 23:00 07:00 Intake Total 270 ml 360 ml 1000 ml Balance 270 ml 360 ml 1000 ml Labs: Laboratory Tests Test 07/24/20 11:26 07/24/20 16:13 07/24/20 19:08 07/25/20 07:34 Glucose (Fingerstick) 190 mg/dL (70-99) H 194 mg/dL (70-99) H 158 mg/dL (70-99) H 114 mg/dL (70-99) H Current Medications: Meds: Laboratory Tests Test 07/24/20 11:26 07/24/20 16:13 07/24/20 19:08 07/25/20 07:34 Glucose (Fingerstick) 190 mg/dL 194 mg/dL 158 mg/dL 114 mg/dL Current Medications Medications (Trade) Dose Ordered Sig/Michell Route PRN Reason Start Time Stop Time Status Last Admin Dose Admin Non-Formulary Medication (Non Formulary Item (Akoeb-Qnkons-Evmbw)) 1 ea PRN Q6HRS PRN TP AGITATION 07/10/20 17:15 07/25/20 01:01 Acetaminophen (Tylenol) 650 mg PRN Q6HRS PRN PO MILD PAIN / TEMP > 100.3'F 07/10/20 18:30 07/25/20 01:02 Multi-Ingredient Ointment (Analgesic [place]) 1 loyd PRN QID PRN TP MUSCLE PAIN 07/10/20 18:30 Al Hydroxide/Mg Hydroxide (Mylanta Plus Xs) 15 ml PRN AFTMEALHC PRN PO DYSPEPSIA 07/10/20 18:30 Magnesium Hydroxide (Milk Of Magnesia) 2,400 mg PRN QHS PRN PO CONSTIPATION 07/10/20 18:30 Allopurinol (Zyloprim) 100 mg BID PO 07/10/20 21:00 07/24/20 20:07 Vitamin D (Vitamin D3) 1,000 unit DAILY PO 07/11/20 09:00 07/24/20 08:14 Glucose (Insta-Glucose) 15 gm PRN Q15MIN PRN PO HYPOGLYCEMIA 07/10/20 18:30 Dextrose (Dextrose 50%-Water Syringe) 25 gm PRN Q15MIN PRN IV HYPOGLYCEMIA 07/10/20 18:30 Ferrous Sulfate (Feosol) 325 mg BIDWMEALS PO 07/11/20 08:00 07/24/20 16:22 Finasteride (Proscar) 5 mg DAILY PO 07/11/20 09:00 07/24/20 08:14 Gabapentin (Neurontin) 100 mg TID PO 07/10/20 21:00 07/24/20 20:06 Insulin Glargine (Lantus Syringe) 30 unit HS SQ 07/10/20 21:00 07/24/20 20:33 Insulin Human Lispro (HumaLOG) 5 units TIDWMEALS PRN SQ FSBS GREATER THAN 400 07/10/20 18:45 07/23/20 18:17 DC Lisinopril (Prinivil) 10 mg DAILY PO 07/11/20 09:00 07/24/20 08:15 Metoprolol Tartrate (Lopressor) 25 mg DAILY PO 07/11/20 09:00 07/24/20 08:15 Olanzapine (ZyPREXA) 5 mg BID PO 07/10/20 21:00 07/22/20 18:55 DC 07/22/20 09:00 Ondansetron HCl (Zofran Odt) 4 mg PRN Q8HRS PRN PO NAUSEA 07/10/20 18:30 Pantoprazole Sodium (Protonix) 40 mg BIDWMEALS PO 07/11/20 08:00 07/24/20 16:22 Sucralfate (Carafate) 1 gm QIDACHS PO 07/10/20 21:00 07/24/20 20:06 Tamsulosin HCl (Flomax) 0.4 mg HS PO 07/10/20 21:00 07/21/20 17:34 DC 07/20/20 20:19 Tramadol HCl (Ultram) 50 mg BID PO 07/10/20 21:00 07/24/20 20:07 Lactobacillus Rhamnosus (Culturelle) 1 cap BID PO 07/10/20 21:00 07/24/20 20:05 Glimepiride (Amaryl) 4 mg BIDWMEALS PO 07/11/20 08:00 07/24/20 16:22 Non-Formulary Medication (Glucagon,Human Recombinant (Glucagon Emergency Kit)) 1 mg PRN PRN IM HYPOGLYCEMIA 07/10/20 18:30 UNV Lactulose (Lactulose) 20 gm TID PO 07/10/20 21:00 07/24/20 20:07 Polyethylene Glycol (miraLAX) 17 gm DAILY PO 07/11/20 09:00 07/24/20 08:13 Non-Formulary Medication ([Abh Topical Cream] ) 0.5 ml Q6HRS PRN TOP AGITATION 07/10/20 18:30 07/11/20 07:18 DC Mirtazapine (Remeron) 7.5 mg QHS PO 07/13/20 21:00 07/14/20 18:47 DC 07/13/20 19:50 Divalproex Sodium (Depakote Sprinkles) 125 mg BID@0900,1700 PO 07/14/20 09:00 07/18/20 18:49 DC 07/18/20 17:29 Trazodone HCl (Desyrel) 50 mg PRN QHS PRN PO INSOMNIA 07/13/20 21:45 07/25/20 01:02 Mirtazapine (Remeron) 15 mg QHS PO 07/14/20 21:00 07/21/20 18:30 DC 07/20/20 20:19 Melatonin (Melatonin) 3 mg QHS PO 07/17/20 21:00 07/24/20 20:07 Divalproex Sodium (Depakote Sprinkles) 250 mg BID@0900,1700 PO 07/19/20 09:00 07/22/20 18:55 DC 07/22/20 16:32 Sertraline HCl (Zoloft) 25 mg DAILY PO 07/19/20 09:00 07/21/20 23:50 DC 07/21/20 08:36 Sertraline HCl (Zoloft) 50 mg DAILY PO 07/22/20 09:00 07/24/20 08:14 Cefdinir (Omnicef) 300 mg BID PO 07/21/20 21:00 07/24/20 20:05 Tamsulosin HCl (Flomax) 0.8 mg HS PO 07/21/20 17:45 07/21/20 18:39 DC Mirtazapine (Remeron) 7.5 mg QHS PO 07/21/20 21:00 07/23/20 18:01 DC 07/22/20 19:51 Tamsulosin HCl (Flomax) 0.8 mg HS PO 07/21/20 21:00 07/24/20 20:05 Dextrose 1,000 ml @ 100 mls/hr Q10H IV 07/23/20 17:30 07/24/20 23:30 Insulin Human Lispro (HumaLOG) 0-7 UNITS TIDWMEALS SQ 07/24/20 18:30 07/24/20 16:27 Mirtazapine (Remeron) 7.5 mg QHS PO 07/24/20 22:00 07/24/20 22:22 Current Medications Medications (Trade) Dose Ordered Sig/Michell Route PRN Reason Start Time Stop Time Status Last Admin Dose Admin Insulin Human Lispro (HumaLOG) 0-7 UNITS TIDWMEALS SQ 07/24/20 18:30 07/24/20 16:27 Mirtazapine (Remeron) 7.5 mg QHS PO 07/24/20 22:00 07/24/20 22:22 I have reviewed the current psychotropics carefully including drug interactions. Risk benefit ratio favors no change other than as noted in my dictated progress note. Diagnosis: Problems: (1) Impulse control disorder, unspecified (2) Anxiety disorder, unspecified (3) Dementia, vascular, with depression (4) Dementia, vascular, with delusions (5) Dementia in Alzheimer's disease with depression (6) Dementia in Alzheimer's disease with delusions (7) Dementia of the Alzheimer's type with early onset with behavioral disturbance (8) Major neurocognitive disorder ASIM SPANGLER MD Jul 25, 2020 09:59
[2020-07-25] MEDS: IV DEXTROSE 5% 1,000 ML IV SCH ×2 (10:27→20:29)
[2020-07-25 16:06] VITALS: BP 102/65
--- NOTE | 2020-07-25 18:28 | NUR ---
Nursing note: Client cont to be lethargic through the day, having to be fed at all meals, taking in only a little. He refused dinner letting the food and drink just run out of his mouth without attempting to swallow. Continues on IV fluid of D5W at 100 ml/hr. Client was in bed for morning medications & assessment. Client was medication compliant. Will continue to monitor.
[2020-07-25] MEDS: MIRTAZAPINE 7.5 MG TABLET. PO SCH (20:28)
[2020-07-25] MEDS: MELATONIN 3 MG TABLET PO SCH (20:28)
[2020-07-25] MEDS: TAMSULOSIN 0.4 MG CAP.ER.24H. PO SCH (20:28)
[2020-07-25] MEDS: INSULIN GLARGINE SYRINGE. SQ SCH (20:31)
--- NOTE | 2020-07-25 22:07 | PDOC ---
Exam Note: Harshil Note: Please also refer to the separate dictated note~for this date of service dictated separately.~Patient seen individually. Discussed the patient with Nursing staff reviewed the chart.~Reviewed interim history and current functioning. Reviewed vital signs,~Labs/ Radiology~and current medications noted below. Continue current treatment with the changes noted in the dictated addendum note Assessment: Vital Signs/I&O: Vital Signs Date Time Temp Pulse Resp B/P (MAP) Pulse Ox O2 Delivery O2 Flow Rate FiO2 07/25/20 21:06 100 07/25/20 16:06 97.0 58 18 102/65 (77) 07/25/20 10:15 Room Air I & O 07/24/20 07/24/20 07/25/20 15:00 23:00 07:00 Intake Total 270 ml 360 ml 1000 ml Balance 270 ml 360 ml 1000 ml Labs: Laboratory Tests Test 07/25/20 07:34 07/25/20 11:34 07/25/20 16:38 07/25/20 19:12 Glucose (Fingerstick) 114 mg/dL (70-99) H 141 mg/dL (70-99) H 221 mg/dL (70-99) H 282 mg/dL (70-99) H Current Medications: Meds: Laboratory Tests Test 07/25/20 07:34 07/25/20 11:34 07/25/20 16:38 07/25/20 19:12 Glucose (Fingerstick) 114 mg/dL 141 mg/dL 221 mg/dL 282 mg/dL Current Medications Medications (Trade) Dose Ordered Sig/Michell Route PRN Reason Start Time Stop Time Status Last Admin Dose Admin Non-Formulary Medication (Non Formulary Item (Mqnxt-Oxsfuj-Gfygp)) 1 ea PRN Q6HRS PRN TP AGITATION 07/10/20 17:15 07/25/20 01:01 Acetaminophen (Tylenol) 650 mg PRN Q6HRS PRN PO MILD PAIN / TEMP > 100.3'F 07/10/20 18:30 07/25/20 01:02 Multi-Ingredient Ointment (Analgesic [place]) 1 loyd PRN QID PRN TP MUSCLE PAIN 07/10/20 18:30 Al Hydroxide/Mg Hydroxide (Mylanta Plus Xs) 15 ml PRN AFTMEALHC PRN PO DYSPEPSIA 07/10/20 18:30 Magnesium Hydroxide (Milk Of Magnesia) 2,400 mg PRN QHS PRN PO CONSTIPATION 07/10/20 18:30 Allopurinol (Zyloprim) 100 mg BID PO 07/10/20 21:00 07/25/20 09:22 Vitamin D (Vitamin D3) 1,000 unit DAILY PO 07/11/20 09:00 07/25/20 09:21 Glucose (Insta-Glucose) 15 gm PRN Q15MIN PRN PO HYPOGLYCEMIA 07/10/20 18:30 Dextrose (Dextrose 50%-Water Syringe) 25 gm PRN Q15MIN PRN IV HYPOGLYCEMIA 07/10/20 18:30 Ferrous Sulfate (Feosol) 325 mg BIDWMEALS PO 07/11/20 08:00 07/25/20 17:31 Finasteride (Proscar) 5 mg DAILY PO 07/11/20 09:00 07/25/20 09:19 Gabapentin (Neurontin) 100 mg TID PO 07/10/20 21:00 07/25/20 20:28 Insulin Glargine (Lantus Syringe) 30 unit HS SQ 07/10/20 21:00 07/25/20 20:31 Insulin Human Lispro (HumaLOG) 5 units TIDWMEALS PRN SQ FSBS GREATER THAN 400 07/10/20 18:45 07/23/20 18:17 DC Lisinopril (Prinivil) 10 mg DAILY PO 07/11/20 09:00 07/25/20 09:22 Metoprolol Tartrate (Lopressor) 25 mg DAILY PO 07/11/20 09:00 07/25/20 09:22 Olanzapine (ZyPREXA) 5 mg BID PO 07/10/20 21:00 07/22/20 18:55 DC 07/22/20 09:00 Ondansetron HCl (Zofran Odt) 4 mg PRN Q8HRS PRN PO NAUSEA 07/10/20 18:30 Pantoprazole Sodium (Protonix) 40 mg BIDWMEALS PO 07/11/20 08:00 07/25/20 17:31 Sucralfate (Carafate) 1 gm QIDACHS PO 07/10/20 21:00 07/25/20 16:46 Tamsulosin HCl (Flomax) 0.4 mg HS PO 07/10/20 21:00 07/21/20 17:34 DC 07/20/20 20:19 Tramadol HCl (Ultram) 50 mg BID PO 07/10/20 21:00 07/25/20 20:28 Lactobacillus Rhamnosus (Culturelle) 1 cap BID PO 07/10/20 21:00 07/25/20 09:21 Glimepiride (Amaryl) 4 mg BIDWMEALS PO 07/11/20 08:00 07/25/20 17:31 Non-Formulary Medication (Glucagon,Human Recombinant (Glucagon Emergency Kit)) 1 mg PRN PRN IM HYPOGLYCEMIA 07/10/20 18:30 UNV Lactulose (Lactulose) 20 gm TID PO 07/10/20 21:00 07/25/20 14:27 Polyethylene Glycol (miraLAX) 17 gm DAILY PO 07/11/20 09:00 07/24/20 08:13 Non-Formulary Medication ([Abh Topical Cream] ) 0.5 ml Q6HRS PRN TOP AGITATION 07/10/20 18:30 07/11/20 07:18 DC Mirtazapine (Remeron) 7.5 mg QHS PO 07/13/20 21:00 07/14/20 18:47 DC 07/13/20 19:50 Divalproex Sodium (Depakote Sprinkles) 125 mg BID@0900,1700 PO 07/14/20 09:00 07/18/20 18:49 DC 07/18/20 17:29 Trazodone HCl (Desyrel) 50 mg PRN QHS PRN PO INSOMNIA 07/13/20 21:45 07/25/20 20:28 Mirtazapine (Remeron) 15 mg QHS PO 07/14/20 21:00 07/21/20 18:30 DC 07/20/20 20:19 Melatonin (Melatonin) 3 mg QHS PO 07/17/20 21:00 07/25/20 20:28 Divalproex Sodium (Depakote Sprinkles) 250 mg BID@0900,1700 PO 07/19/20 09:00 07/22/20 18:55 DC 07/22/20 16:32 Sertraline HCl (Zoloft) 25 mg DAILY PO 07/19/20 09:00 07/21/20 23:50 DC 07/21/20 08:36 Sertraline HCl (Zoloft) 50 mg DAILY PO 07/22/20 09:00 07/25/20 09:23 Cefdinir (Omnicef) 300 mg BID PO 07/21/20 21:00 07/25/20 20:28 Tamsulosin HCl (Flomax) 0.8 mg HS PO 07/21/20 17:45 07/21/20 18:39 DC Mirtazapine (Remeron) 7.5 mg QHS PO 07/21/20 21:00 07/23/20 18:01 DC 07/22/20 19:51 Tamsulosin HCl (Flomax) 0.8 mg HS PO 07/21/20 21:00 07/25/20 20:28 Dextrose 1,000 ml @ 100 mls/hr Q10H IV 07/23/20 17:30 07/25/20 20:29 Insulin Human Lispro (HumaLOG) 0-7 UNITS TIDWMEALS SQ 07/24/20 18:30 07/25/20 17:40 Mirtazapine (Remeron) 7.5 mg QHS PO 07/24/20 22:00 07/25/20 20:28 I have reviewed the current psychotropics carefully including drug interactions. Risk benefit ratio favors no change other than as noted in my dictated progress note. Diagnosis: Problems: (1) Impulse control disorder, unspecified (2) Anxiety disorder, unspecified (3) Dementia, vascular, with depression (4) Dementia, vascular, with delusions (5) Dementia in Alzheimer's disease with depression (6) Dementia in Alzheimer's disease with delusions (7) Dementia of the Alzheimer's type with early onset with behavioral disturbance (8) Major neurocognitive disorder ASIM SPANGLER MD Jul 25, 2020 22:07
--- NOTE | 2020-07-25 23:22 | NUR ---
Patient is located in the day room on assumption of care, asleep in his broda chair. Responds to name, but barely opens his eyes. Oriented to self only. Patient given psych meds and antibiotic crushed and mixed with a very small amount of pudding. Needed a lot of encouragement to swallow. IV in RAC is patent, running D5W at 100ml/hr. Bladder scan performed at HS, showing greater than 429mL. Straight cath performed, 200mL of dark yellow urine drained. Will bladder scan again before end of shift. Patient does not appear to be experiencing any pain or discomfort. Appears to be sleeping comfortably at present time. Will continue to monitor.
[2020-07-26] MEDS: IV DEXTROSE 5% 1,000 ML IV SCH ×3 (06:10→21:14)
[2020-07-26 06:18] VITALS: BP 110/63
--- NOTE | 2020-07-26 06:25 | NUR ---
Patient bladder scanned before being transferred to [facility], shows >496mL of urine in the bladder. Straight cath performed, 600mL of dark yellow urine drained. Patient tolerated the procedure well, and is currently awake in the day room.
[2020-07-26 07:50] LABS: CALCIUM 8.9 mg/dL (8.5-10.1); CREATININE 1.6 mg/dL (0.7-1.3); GFR 42.2; POTASSIUM 3.8 mmol/L (3.5-5.1)
[2020-07-26] MEDS: INSULIN LISPRO 300 UNITS/3 ML VIAL. SQ SCH ×3 (08:00→17:35)
[2020-07-26] MEDS: ALLOPURINOL 100 MG TABLET. PO SCH ×2 (08:50→21:07)
[2020-07-26] MEDS: PANTOPRAZOLE 40 MG TABLET. PO SCH ×2 (08:50→17:27)
[2020-07-26] MEDS: METOPROLOL TART IMMED RELEASE 25 MG TABLET. PO SCH (08:50)
[2020-07-26] MEDS: LACTOBACILLUS RHAMNOSUS GG 1 CAPSULE. PO SCH ×2 (08:51→21:07)
[2020-07-26] MEDS: CEFDINIR 300 MG CAPSULE PO SCH ×2 (08:51→21:07)
[2020-07-26] MEDS: CHOLECALCIFEROL (VITAMIN D3) 1,000 UNIT TABLET PO SCH (08:51)
[2020-07-26] MEDS: SERTRALINE 50 MG TABLET. PO SCH (08:51)
[2020-07-26] MEDS: SUCRALFATE 1 GM TABLET. PO SCH ×4 (08:51→21:25)
[2020-07-26] MEDS: GABAPENTIN 100 MG CAPSULE. PO SCH ×3 (08:51→21:07)
[2020-07-26] MEDS: FERROUS SULFATE 325 MG TABLET. PO SCH ×2 (08:51→17:27)
[2020-07-26] MEDS: LISINOPRIL 10 MG TABLET PO SCH (08:51)
[2020-07-26] MEDS: traMADol 50 MG TABLET PO SCH ×2 (08:52→21:07)
[2020-07-26] MEDS: FINASTERIDE 5 MG TABLET. PO SCH (08:52)
[2020-07-26] MEDS: LACTULOSE 20 GM/30 ML SOLUTION. PO SCH ×3 (08:53→21:07)
[2020-07-26] MEDS: POLYETHYLENE GLYCOL 3350 17 GM PACKET. PO SCH (08:53)
[2020-07-26] MEDS: GLIMEPIRIDE 2 MG TABLET PO SCH ×2 (08:53→17:27)
--- NOTE | 2020-07-26 09:30 | PDOC ---
Exam Note: Harshil Note: This note is a late entry for 07/25/2020 covers elements not covered in my initial note. Subjective: The patient was seen individually in the evening of 07/25/2020 with Luciana GLOVER, discussed and reviewed the chart. The patient slept 3-1/2 hours previous night. He takes his medications crushed. Remains on IV fluids and did need a straight catheter. We will check BMP and ammonia level in the morning. Review of Systems: Ambulation impaired in Broda chair. No CV, , pulmonary, eye, ENT system symptoms on review. Mental Status Exam: The patient is oriented to himself. Insight and judgment, recent and remote memory, attention and concentration, fund of knowledge is poor consistent with his diagnoses. Laboratory Data: Reviewed. Impression: Major neurocognitive disorder Alzheimer vascular with delusion, dep ression, behavioral disturbance. Anxiety disorder unspecified. Impulse control disorder unspecified. Plan: No change from initial note. Assessment: Vital Signs/I&O: Vital Signs Date Time Temp Pulse Resp B/P (MAP) Pulse Ox O2 Delivery O2 Flow Rate FiO2 07/26/20 08:52 92 07/26/20 08:51 82 110/63 07/26/20 06:18 97.6 20 07/25/20 10:15 Room Air I & O 07/25/20 07/25/20 07/26/20 15:00 23:00 07:00 Intake Total 960 ml 120 ml Output Total 1200 ml 200 ml 600 ml Balance -240 ml -80 ml -600 ml Labs: Laboratory Tests Test 07/25/20 11:34 07/25/20 16:38 07/25/20 19:12 07/26/20 06:58 Glucose (Fingerstick) 141 mg/dL (70-99) H 221 mg/dL (70-99) H 282 mg/dL (70-99) H Sodium Level 138 mmol/L (136-145) Potassium Level 3.8 mmol/L (3.5-5.1) Chloride Level 105 mmol/L (98-107) Carbon Dioxide Level 22 mmol/L (21-32) Anion Gap 11 (6-14) Blood Urea Nitrogen 35 mg/dL (8-26) H Creatinine 1.6 mg/dL (0.7-1.3) H Estimated GFR (Cockcroft-Gault) 42.2 Glucose Level 105 mg/dL (70-99) H Calcium Level 8.9 mg/dL (8.5-10.1) Ammonia 65 mcmol/L (11-34) H Test 07/26/20 07:17 Glucose (Fingerstick) 98 mg/dL (70-99) Current Medications: Meds: Laboratory Tests Test 07/25/20 11:34 07/25/20 16:38 07/25/20 19:12 07/26/20 06:58 Glucose (Fingerstick) 141 mg/dL 221 mg/dL 282 mg/dL Sodium Level 138 mmol/L Potassium Level 3.8 mmol/L Chloride Level 105 mmol/L Carbon Dioxide Level 22 mmol/L Anion Gap 11 Blood Urea Nitrogen 35 mg/dL Creatinine 1.6 mg/dL Estimated GFR (Cockcroft-Gault) 42.2 Glucose Level 105 mg/dL Calcium Level 8.9 mg/dL Ammonia 65 mcmol/L Test 07/26/20 07:17 Glucose (Fingerstick) 98 mg/dL Current Medications Medications (Trade) Dose Ordered Sig/Michell Route PRN Reason Start Time Stop Time Status Last Admin Dose Admin Non-Formulary Medication (Non Formulary Item (Rfwwy-Hbvlyq-Cohmz)) 1 ea PRN Q6HRS PRN TP AGITATION 07/10/20 17:15 07/25/20 01:01 Acetaminophen (Tylenol) 650 mg PRN Q6HRS PRN PO MILD PAIN / TEMP > 100.3'F 07/10/20 18:30 07/25/20 01:02 Multi-Ingredient Ointment (Analgesic [place]) 1 loyd PRN QID PRN TP MUSCLE PAIN 07/10/20 18:30 Al Hydroxide/Mg Hydroxide (Mylanta Plus Xs) 15 ml PRN AFTMEALHC PRN PO DYSPEPSIA 07/10/20 18:30 Magnesium Hydroxide (Milk Of Magnesia) 2,400 mg PRN QHS PRN PO CONSTIPATION 07/10/20 18:30 Allopurinol (Zyloprim) 100 mg BID PO 07/10/20 21:00 07/26/20 08:50 Vitamin D (Vitamin D3) 1,000 unit DAILY PO 07/11/20 09:00 07/26/20 08:51 Glucose (Insta-Glucose) 15 gm PRN Q15MIN PRN PO HYPOGLYCEMIA 07/10/20 18:30 Dextrose (Dextrose 50%-Water Syringe) 25 gm PRN Q15MIN PRN IV HYPOGLYCEMIA 07/10/20 18:30 Ferrous Sulfate (Feosol) 325 mg BIDWMEALS PO 07/11/20 08:00 07/26/20 08:51 Finasteride (Proscar) 5 mg DAILY PO 07/11/20 09:00 07/26/20 08:52 Gabapentin (Neurontin) 100 mg TID PO 07/10/20 21:00 07/26/20 08:51 Insulin Glargine (Lantus Syringe) 30 unit HS SQ 07/10/20 21:00 07/25/20 20:31 Insulin Human Lispro (HumaLOG) 5 units TIDWMEALS PRN SQ FSBS GREATER THAN 400 07/10/20 18:45 07/23/20 18:17 DC Lisinopril (Prinivil) 10 mg DAILY PO 07/11/20 09:00 07/26/20 08:51 Metoprolol Tartrate (Lopressor) 25 mg DAILY PO 07/11/20 09:00 07/26/20 08:50 Olanzapine (ZyPREXA) 5 mg BID PO 07/10/20 21:00 07/22/20 18:55 DC 07/22/20 09:00 Ondansetron HCl (Zofran Odt) 4 mg PRN Q8HRS PRN PO NAUSEA 07/10/20 18:30 Pantoprazole Sodium (Protonix) 40 mg BIDWMEALS PO 07/11/20 08:00 07/26/20 08:50 Sucralfate (Carafate) 1 gm QIDACHS PO 07/10/20 21:00 07/26/20 08:51 Tamsulosin HCl (Flomax) 0.4 mg HS PO 07/10/20 21:00 07/21/20 17:34 DC 07/20/20 20:19 Tramadol HCl (Ultram) 50 mg BID PO 07/10/20 21:00 07/26/20 08:52 Lactobacillus Rhamnosus (Culturelle) 1 cap BID PO 07/10/20 21:00 07/26/20 08:51 Glimepiride (Amaryl) 4 mg BIDWMEALS PO 07/11/20 08:00 07/26/20 08:53 Non-Formulary Medication (Glucagon,Human Recombinant (Glucagon Emergency Kit)) 1 mg PRN PRN IM HYPOGLYCEMIA 07/10/20 18:30 UNV Lactulose (Lactulose) 20 gm TID PO 07/10/20 21:00 07/26/20 08:53 Polyethylene Glycol (miraLAX) 17 gm DAILY PO 07/11/20 09:00 07/24/20 08:13 Non-Formulary Medication ([Abh Topical Cream] ) 0.5 ml Q6HRS PRN TOP AGITATION 07/10/20 18:30 07/11/20 07:18 DC Mirtazapine (Remeron) 7.5 mg QHS PO 07/13/20 21:00 07/14/20 18:47 DC 07/13/20 19:50 Divalproex Sodium (Depakote Sprinkles) 125 mg BID@0900,1700 PO 07/14/20 09:00 07/18/20 18:49 DC 07/18/20 17:29 Trazodone HCl (Desyrel) 50 mg PRN QHS PRN PO INSOMNIA 07/13/20 21:45 07/25/20 20:28 Mirtazapine (Remeron) 15 mg QHS PO 07/14/20 21:00 07/21/20 18:30 DC 07/20/20 20:19 Melatonin (Melatonin) 3 mg QHS PO 07/17/20 21:00 07/25/20 20:28 Divalproex Sodium (Depakote Sprinkles) 250 mg BID@0900,1700 PO 07/19/20 09:00 07/22/20 18:55 DC 07/22/20 16:32 Sertraline HCl (Zoloft) 25 mg DAILY PO 07/19/20 09:00 07/21/20 23:50 DC 07/21/20 08:36 Sertraline HCl (Zoloft) 50 mg DAILY PO 07/22/20 09:00 07/26/20 08:51 Cefdinir (Omnicef) 300 mg BID PO 07/21/20 21:00 07/26/20 08:51 Tamsulosin HCl (Flomax) 0.8 mg HS PO 07/21/20 17:45 07/21/20 18:39 DC Mirtazapine (Remeron) 7.5 mg QHS PO 07/21/20 21:00 07/23/20 18:01 DC 07/22/20 19:51 Tamsulosin HCl (Flomax) 0.8 mg HS PO 07/21/20 21:00 07/25/20 20:28 Dextrose 1,000 ml @ 100 mls/hr Q10H IV 07/23/20 17:30 07/26/20 06:10 Insulin Human Lispro (HumaLOG) 0-7 UNITS TIDWMEALS SQ 07/24/20 18:30 07/25/20 17:40 Mirtazapine (Remeron) 7.5 mg QHS PO 07/24/20 22:00 07/25/20 20:28 I have reviewed the current psychotropics carefully including drug interactions. Risk benefit ratio favors no change other than as noted in my dictated progress note. 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
--- NOTE | 2020-07-26 13:17 | NUR ---
WEEKLY ACTIVITY THERAPY NOTE Date of Admission: 07/10/20 Date of AT Assessment: 07/13 Precipitating behaviors that initiated intake and admission: agitation and aggression Goal aimed: increase stress management and relaxation skills Initial Goal: Pt will participate in at least three individual or group Activity Therapy sessions before discharge. Weekly progress towards goal: did not achieve, 0/3 Group participation level: none Weekly highlights: Behaviors observed: sleeping in broda chair, unable to engage Plan: no change to goal Beneficial adaptations:
[2020-07-26 16:09] VITALS: BP 103/66
--- NOTE | 2020-07-26 16:17 | NUR ---
Treatment team note: Pt is eating roughly 50-75% of meals and sleeping on average 6.5 hours per night; it was noted that pt slept 9.5 hours. Pt continues to be drowsy and is only alert to self. Pt does appear to need help with being fed and appears less restless. Pt does sit in group, however, has no participation or interaction with his peers. Pt is on IV as a means to prevent dehydration as pt does not like the thickened liquids. Pt does well with his medications crushed. Pt will discharge to [facility] in [place], [place] later this week if not early part of the week after.
--- NOTE | 2020-07-26 16:22 | TX PLAN ---
Interdisciplinary Tx Plan Admission Information July 10, 2020 at 14:50 Legal Status (on Admission): Voluntary DPOA/Guardian Name: Tiffanie Joyner Contact Other Contact Name: [facility] Other Contact Verified Code Status: Other (Full Code/Do Not Intubate) Allergies: Coded Allergies: selegiline (Verified Allergy, Intermediate, 07/10/20) HALLUCINATIONS Diagnoses Primary Diagnosis: Major Neurocognitive D/O with BD Reasons for Admission: Aggressive, Agitated, Combative, Confusion/Disoriented, Poor impulse control Problem in Patient's Words: This disease...it's just not him Additional Admission Comments: According to the intake, pt is combative, hitting , agitated, irritable, psychotic, cursing, punching at the wall, kicking at staff, restless, agitated Problems Active Problems: No active behaviors noted upon admission Inactive Problems: No behaviors noted Medication compliant Pt Strengths/Limitations Ability for [employer]: Poor Cognitive Functioning/Ability: Fair Communication Skills/Ability: Fair Financial Resources: Fair Insight/Judgement: Poor Intellectual Ability: Fair Physical Health: Poor Social Skills: Fair Stability in Family: Good Stability in School/Work: Poor Verbal Skills: Fair Discharge Criteria Discharge Criteria: No need for close observ., Adequate arrangements @DC, Improved behavior, Improved mood/thought Preliminary Discharge Plan Preliminary DC Plan: [facility] Special Precautions Fall Risk: Moderate Other Precautions (specify): use of wheelchair due to unsteadiness and work with PT/OT Initial D/C Plan Will discharge to [facility] in [place], [place] once stabilized Identified Discharge Needs: referral for continued psychiatric services Currently Utilized Resources Currently Utilized Resources/P: Primary Care Physician Referrals Community Resources: Psychiatry services Identified Problems/Hx/Goals Objectives/Short-Term Goals Short Term Goals: Dec. Aggression, Dec. Outbursts, Improved Social Skills, Medication Stabilization, Monitor Med Effects, Promote Coping Skill Short Term Goals in Patient's: NA Interventions/Frequency Staff Interventions/Frequency&: Psychiatrist to assess pt at least 3x per week for medication mgmt. Social Work to assess pt at least 2x per week to identify barriers to care and final discharge plans. Nursing to assess medication effects, behavior modifications and completion of 15 minute checks. Encourage participation in group activities (if applicable) or 1:1 engagement based off Activity Dept goals. 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 Pt also tried his hand at having his own [employer] in which he was a 3x award-winner through the local chamber for his work. Education: Pt did graduate 12th grade Community Follow-up Primary Care Physician Community Provider/Family Inpu: It's the disease making him this way. He would never hurt anyone and as of late he continues to be aggressive and it's just not him. 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 Pt continues to be drowsy and is only alert to self. Pt does appear to need help with being fed and appears less restless. Pt does sit in group, however, has no participation or interaction with his peers. Pt is on IV as a means to prevent dehydration as pt does not like the thickened liquids. Pt does well with his medications crushed. Pt will discharge to [facility] in [place], [place] later this week if not early part of the week after. TIARA RITCHIE Jul 26, 2020 16:22
[2020-07-26] MEDS: MIRTAZAPINE 7.5 MG TABLET. PO SCH (21:07)
[2020-07-26] MEDS: TAMSULOSIN 0.4 MG CAP.ER.24H. PO SCH (21:07)
[2020-07-26] MEDS: MELATONIN 3 MG TABLET PO SCH (21:07)
[2020-07-26] MEDS: INSULIN GLARGINE SYRINGE. SQ SCH (21:11)
--- NOTE | 2020-07-26 22:02 | PDOC ---
Exam Note: Harshil Note: Please also refer to the separate dictated note~for this date of service dictated separately.~Patient seen individually. Discussed the patient with Nursing staff reviewed the chart.~Reviewed interim history and current functioning. Reviewed vital signs,~Labs/ Radiology~and current medications noted below. Continue current treatment with the changes noted in the dictated addendum note Assessment: Vital Signs/I&O: Vital Signs Date Time Temp Pulse Resp B/P (MAP) Pulse Ox O2 Delivery O2 Flow Rate FiO2 07/26/20 16:09 97.4 58 18 103/66 (78) 95 07/25/20 10:15 Room Air I & O 07/25/20 07/25/20 07/26/20 15:00 23:00 07:00 Intake Total 960 ml 120 ml Output Total 1200 ml 200 ml 600 ml Balance -240 ml -80 ml -600 ml Labs: Laboratory Tests Test 07/26/20 06:58 07/26/20 07:17 07/26/20 11:26 07/26/20 16:30 Sodium Level 138 mmol/L (136-145) Potassium Level 3.8 mmol/L (3.5-5.1) Chloride Level 105 mmol/L (98-107) Carbon Dioxide Level 22 mmol/L (21-32) Anion Gap 11 (6-14) Blood Urea Nitrogen 35 mg/dL (8-26) H Creatinine 1.6 mg/dL (0.7-1.3) H Estimated GFR (Cockcroft-Gault) 42.2 Glucose Level 105 mg/dL (70-99) H Calcium Level 8.9 mg/dL (8.5-10.1) Ammonia 65 mcmol/L (11-34) H Glucose (Fingerstick) 98 mg/dL (70-99) 162 mg/dL (70-99) H 232 mg/dL (70-99) H Test 07/26/20 19:15 Glucose (Fingerstick) 277 mg/dL (70-99) H Current Medications: Meds: Laboratory Tests Test 07/26/20 06:58 07/26/20 07:17 07/26/20 11:26 07/26/20 16:30 Sodium Level 138 mmol/L Potassium Level 3.8 mmol/L Chloride Level 105 mmol/L Carbon Dioxide Level 22 mmol/L Anion Gap 11 Blood Urea Nitrogen 35 mg/dL Creatinine 1.6 mg/dL Estimated GFR (Cockcroft-Gault) 42.2 Glucose Level 105 mg/dL Calcium Level 8.9 mg/dL Ammonia 65 mcmol/L Glucose (Fingerstick) 98 mg/dL 162 mg/dL 232 mg/dL Test 07/26/20 19:15 Glucose (Fingerstick) 277 mg/dL Current Medications Medications (Trade) Dose Ordered Sig/Michell Route PRN Reason Start Time Stop Time Status Last Admin Dose Admin Non-Formulary Medication (Non Formulary Item (Sugni-Jcijtc-Icnkx)) 1 ea PRN Q6HRS PRN TP AGITATION 07/10/20 17:15 07/25/20 01:01 Acetaminophen (Tylenol) 650 mg PRN Q6HRS PRN PO MILD PAIN / TEMP > 100.3'F 07/10/20 18:30 07/25/20 01:02 Multi-Ingredient Ointment (Analgesic [place]) 1 loyd PRN QID PRN TP MUSCLE PAIN 07/10/20 18:30 Al Hydroxide/Mg Hydroxide (Mylanta Plus Xs) 15 ml PRN AFTMEALHC PRN PO DYSPEPSIA 07/10/20 18:30 Magnesium Hydroxide (Milk Of Magnesia) 2,400 mg PRN QHS PRN PO CONSTIPATION 07/10/20 18:30 Allopurinol (Zyloprim) 100 mg BID PO 07/10/20 21:00 07/26/20 21:07 Vitamin D (Vitamin D3) 1,000 unit DAILY PO 07/11/20 09:00 07/26/20 08:51 Glucose (Insta-Glucose) 15 gm PRN Q15MIN PRN PO HYPOGLYCEMIA 07/10/20 18:30 Dextrose (Dextrose 50%-Water Syringe) 25 gm PRN Q15MIN PRN IV HYPOGLYCEMIA 07/10/20 18:30 Ferrous Sulfate (Feosol) 325 mg BIDWMEALS PO 07/11/20 08:00 07/26/20 17:27 Finasteride (Proscar) 5 mg DAILY PO 07/11/20 09:00 07/26/20 08:52 Gabapentin (Neurontin) 100 mg TID PO 07/10/20 21:00 07/26/20 21:07 Insulin Glargine (Lantus Syringe) 30 unit HS SQ 07/10/20 21:00 07/26/20 21:11 Insulin Human Lispro (HumaLOG) 5 units TIDWMEALS PRN SQ FSBS GREATER THAN 400 07/10/20 18:45 07/23/20 18:17 DC Lisinopril (Prinivil) 10 mg DAILY PO 07/11/20 09:00 07/26/20 08:51 Metoprolol Tartrate (Lopressor) 25 mg DAILY PO 07/11/20 09:00 07/26/20 08:50 Olanzapine (ZyPREXA) 5 mg BID PO 07/10/20 21:00 07/22/20 18:55 DC 07/22/20 09:00 Ondansetron HCl (Zofran Odt) 4 mg PRN Q8HRS PRN PO NAUSEA 07/10/20 18:30 Pantoprazole Sodium (Protonix) 40 mg BIDWMEALS PO 07/11/20 08:00 07/26/20 17:27 Sucralfate (Carafate) 1 gm QIDACHS PO 07/10/20 21:00 07/26/20 21:25 Tamsulosin HCl (Flomax) 0.4 mg HS PO 07/10/20 21:00 07/21/20 17:34 DC 07/20/20 20:19 Tramadol HCl (Ultram) 50 mg BID PO 07/10/20 21:00 07/26/20 21:07 Lactobacillus Rhamnosus (Culturelle) 1 cap BID PO 07/10/20 21:00 07/26/20 21:07 Glimepiride (Amaryl) 4 mg BIDWMEALS PO 07/11/20 08:00 07/26/20 17:27 Non-Formulary Medication (Glucagon,Human Recombinant (Glucagon Emergency Kit)) 1 mg PRN PRN IM HYPOGLYCEMIA 07/10/20 18:30 UNV Lactulose (Lactulose) 20 gm TID PO 07/10/20 21:00 07/26/20 21:07 Polyethylene Glycol (miraLAX) 17 gm DAILY PO 07/11/20 09:00 07/24/20 08:13 Non-Formulary Medication ([Abh Topical Cream] ) 0.5 ml Q6HRS PRN TOP AGITATION 07/10/20 18:30 07/11/20 07:18 DC Mirtazapine (Remeron) 7.5 mg QHS PO 07/13/20 21:00 07/14/20 18:47 DC 07/13/20 19:50 Divalproex Sodium (Depakote Sprinkles) 125 mg BID@0900,1700 PO 07/14/20 09:00 07/18/20 18:49 DC 07/18/20 17:29 Trazodone HCl (Desyrel) 50 mg PRN QHS PRN PO INSOMNIA 07/13/20 21:45 07/25/20 20:28 Mirtazapine (Remeron) 15 mg QHS PO 07/14/20 21:00 07/21/20 18:30 DC 07/20/20 20:19 Melatonin (Melatonin) 3 mg QHS PO 07/17/20 21:00 07/26/20 21:07 Divalproex Sodium (Depakote Sprinkles) 250 mg BID@0900,1700 PO 07/19/20 09:00 07/22/20 18:55 DC 07/22/20 16:32 Sertraline HCl (Zoloft) 25 mg DAILY PO 07/19/20 09:00 07/21/20 23:50 DC 07/21/20 08:36 Sertraline HCl (Zoloft) 50 mg DAILY PO 07/22/20 09:00 07/26/20 08:51 Cefdinir (Omnicef) 300 mg BID PO 07/21/20 21:00 07/26/20 21:07 Tamsulosin HCl (Flomax) 0.8 mg HS PO 07/21/20 17:45 07/21/20 18:39 DC Mirtazapine (Remeron) 7.5 mg QHS PO 07/21/20 21:00 07/23/20 18:01 DC 07/22/20 19:51 Tamsulosin HCl (Flomax) 0.8 mg HS PO 07/21/20 21:00 07/26/20 21:07 Dextrose 1,000 ml @ 100 mls/hr Q10H IV 07/23/20 17:30 07/26/20 21:14 Insulin Human Lispro (HumaLOG) 0-7 UNITS TIDWMEALS SQ 07/24/20 18:30 07/26/20 17:35 Mirtazapine (Remeron) 7.5 mg QHS PO 07/24/20 22:00 07/26/20 21:07 I have reviewed the current psychotropics carefully including drug interactions. Risk benefit ratio favors no change other than as noted in my dictated progress note. 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
--- NOTE | 2020-07-26 22:05 | NUR ---
Patient on D5W 100mls per hour. Bladder scan showed 589 CC. since 0600 this morning. Verified order with hospitalist, he instructed staff to continue to bladder scan patient BID and straight cath when over 300 CC. Will continue to monitor patient. . Addendum: 07/26/20 at 2223 by AVERY KEENE RN Straight cath performed, 550 cc removed, urine was dark yellow and clear.
--- NOTE | 2020-07-27 05:39 | NUR ---
Bladder scan showed 503 cc urine, Straight cath removed 410 cc of tea colored urine. Upon assessment it was observed that patients R AC IV had infiltrated during the night. He has swelling to right hand/arm. IV discontinued and pressure bandage applied to AC. Will pass on in report for staff to consult with hospitalist to see if he wishes to continue fluids.
[2020-07-27 06:20] VITALS: BP 85/58
--- NOTE | 2020-07-27 07:30 | NUR ---
Wound Care Wound Type/Assessment: patient seen per wound care consult. patient had a wound to the right post flank this area was cleaned and the wound is closed at this time. patient has a large bruise but no open area noted at this time. patient has intertrigo in the gluteal cleft, recommendations of Calazime cream, prn. patient incontinent of stool at this time, patient cleaned up and applied Calazime cream. Treatment Recommendations/Plan: Recommendations of continuing Calazime cream, prn to the buttocks/coccyx area Discharge Recommendations for dressings: Wound care will continue to f/u for changes.
[2020-07-27] MEDS: INSULIN LISPRO 300 UNITS/3 ML VIAL. SQ SCH (08:00)
[2020-07-27] MEDS: POLYETHYLENE GLYCOL 3350 17 GM PACKET. PO SCH (08:22)
[2020-07-27] MEDS: CHOLECALCIFEROL (VITAMIN D3) 1,000 UNIT TABLET PO SCH (08:23)
[2020-07-27] MEDS: FINASTERIDE 5 MG TABLET. PO SCH (08:23)
[2020-07-27] MEDS: GLIMEPIRIDE 2 MG TABLET PO SCH (08:23)
[2020-07-27] MEDS: SUCRALFATE 1 GM TABLET. PO SCH (08:23)
[2020-07-27] MEDS: LACTULOSE 20 GM/30 ML SOLUTION. PO SCH (08:23)
[2020-07-27] MEDS: LACTOBACILLUS RHAMNOSUS GG 1 CAPSULE. PO SCH (08:23)
[2020-07-27] MEDS: CEFDINIR 300 MG CAPSULE PO SCH (08:23)
[2020-07-27] MEDS: SERTRALINE 50 MG TABLET. PO SCH (08:24)
[2020-07-27] MEDS: FERROUS SULFATE 325 MG TABLET. PO SCH (08:24)
[2020-07-27] MEDS: ALLOPURINOL 100 MG TABLET. PO SCH (08:24)
[2020-07-27] MEDS: PANTOPRAZOLE 40 MG TABLET. PO SCH (08:24)
[2020-07-27] MEDS: GABAPENTIN 100 MG CAPSULE. PO SCH (08:24)
[2020-07-27 08:33] VITALS: BP 85/58
[2020-07-27] MEDS: LISINOPRIL 10 MG TABLET PO SCH (08:33)
[2020-07-27] MEDS: METOPROLOL TART IMMED RELEASE 25 MG TABLET. PO SCH (08:33)
[2020-07-27] MEDS: traMADol 50 MG TABLET PO SCH (08:34)
--- NOTE | 2020-07-27 09:11 | PDOC ---
Exam Note: Harshil Note: This note is a late entry for 07/26/2020 covers elements not covered in my initial note. Subjective: The patient was reviewed in the morning of 07/26/2020 for a treatment team meeting with Danyell Cabral, Yael Sommers and Nuria (social work professor), Amy, activity therapy and Luciana GLOVER, discussed and reviewed the chart. The patient slept 9-1/2 hours previous night, average 6-1/4 hours. Overall the patient is doing better. He remains in a Broda chair. Appetite is 50%. He remains on IV fluids. Review of Systems: Ambulation impaired in Broda chair. No CV, , pulmonary, eye, ENT system symptoms on review. Gait unsteady. Mental Status Exam: The patient is oriented to himself. Insight and judgment, recent and remote memory, attention and concentration, fund of knowledge is poor consistent with his diagnoses. Laboratory Data: Reviewed. Impression: Major neurocognitive disorder Alzheimer vascular with delusion, depression, behavioral disturbance. Anxiety disorder unspecified. Impulse control disorder unspecified. Plan: Continue psychotropics from initial note including IV fluids. We will transition to his assisted in [place] next week or latter part of this week. Assessment: Vital Signs/I&O: Vital Signs Date Time Temp Pulse Resp B/P (MAP) Pulse Ox O2 Delivery O2 Flow Rate FiO2 07/27/20 08:34 14 07/27/20 08:33 66 85/58 07/27/20 06:20 97.0 94 07/25/20 10:15 Room Air I & O 07/26/20 07/26/20 07/27/20 15:00 23:00 07:00 Intake Total 560 ml 720 ml Output Total 550 ml 410 ml Balance 560 ml 170 ml -410 ml Labs: Laboratory Tests Test 07/26/20 11:26 07/26/20 16:30 07/26/20 19:15 07/27/20 07:37 Glucose (Fingerstick) 162 mg/dL (70-99) H 232 mg/dL (70-99) H 277 mg/dL (70-99) H 71 mg/dL (70-99) Current Medications: Meds: Laboratory Tests Test 07/26/20 11:26 07/26/20 16:30 07/26/20 19:15 07/27/20 07:37 Glucose (Fingerstick) 162 mg/dL 232 mg/dL 277 mg/dL 71 mg/dL Current Medications Medications (Trade) Dose Ordered Sig/Michell Route PRN Reason Start Time Stop Time Status Last Admin Dose Admin Non-Formulary Medication (Non Formulary Item (Nejgd-Qeeyjb-Knzsg)) 1 ea PRN Q6HRS PRN TP AGITATION 07/10/20 17:15 07/25/20 01:01 Acetaminophen (Tylenol) 650 mg PRN Q6HRS PRN PO MILD PAIN / TEMP > 100.3'F 07/10/20 18:30 07/25/20 01:02 Multi-Ingredient Ointment (Analgesic [place]) 1 loyd PRN QID PRN TP MUSCLE PAIN 07/10/20 18:30 Al Hydroxide/Mg Hydroxide (Mylanta Plus Xs) 15 ml PRN AFTMEALHC PRN PO DYSPEPSIA 07/10/20 18:30 Magnesium Hydroxide (Milk Of Magnesia) 2,400 mg PRN QHS PRN PO CONSTIPATION 07/10/20 18:30 Allopurinol (Zyloprim) 100 mg BID PO 07/10/20 21:00 07/27/20 08:24 Vitamin D (Vitamin D3) 1,000 unit DAILY PO 07/11/20 09:00 07/27/20 08:23 Glucose (Insta-Glucose) 15 gm PRN Q15MIN PRN PO HYPOGLYCEMIA 07/10/20 18:30 Dextrose (Dextrose 50%-Water Syringe) 25 gm PRN Q15MIN PRN IV HYPOGLYCEMIA 07/10/20 18:30 Ferrous Sulfate (Feosol) 325 mg BIDWMEALS PO 07/11/20 08:00 07/27/20 08:24 Finasteride (Proscar) 5 mg DAILY PO 07/11/20 09:00 07/27/20 08:23 Gabapentin (Neurontin) 100 mg TID PO 07/10/20 21:00 07/27/20 08:24 Insulin Glargine (Lantus Syringe) 30 unit HS SQ 07/10/20 21:00 07/26/20 21:11 Insulin Human Lispro (HumaLOG) 5 units TIDWMEALS PRN SQ FSBS GREATER THAN 400 07/10/20 18:45 07/23/20 18:17 DC Lisinopril (Prinivil) 10 mg DAILY PO 07/11/20 09:00 07/26/20 08:51 Metoprolol Tartrate (Lopressor) 25 mg DAILY PO 07/11/20 09:00 07/26/20 08:50 Olanzapine (ZyPREXA) 5 mg BID PO 07/10/20 21:00 07/22/20 18:55 DC 07/22/20 09:00 Ondansetron HCl (Zofran Odt) 4 mg PRN Q8HRS PRN PO NAUSEA 07/10/20 18:30 Pantoprazole Sodium (Protonix) 40 mg BIDWMEALS PO 07/11/20 08:00 07/27/20 08:24 Sucralfate (Carafate) 1 gm QIDACHS PO 07/10/20 21:00 07/27/20 08:23 Tamsulosin HCl (Flomax) 0.4 mg HS PO 07/10/20 21:00 07/21/20 17:34 DC 07/20/20 20:19 Tramadol HCl (Ultram) 50 mg BID PO 07/10/20 21:00 07/26/20 21:07 Lactobacillus Rhamnosus (Culturelle) 1 cap BID PO 07/10/20 21:00 07/27/20 08:23 Glimepiride (Amaryl) 4 mg BIDWMEALS PO 07/11/20 08:00 07/27/20 08:23 Non-Formulary Medication (Glucagon,Human Recombinant (Glucagon Emergency Kit)) 1 mg PRN PRN IM HYPOGLYCEMIA 07/10/20 18:30 UNV Lactulose (Lactulose) 20 gm TID PO 07/10/20 21:00 07/27/20 08:23 Polyethylene Glycol (miraLAX) 17 gm DAILY PO 07/11/20 09:00 07/27/20 08:22 Non-Formulary Medication ([Abh Topical Cream] ) 0.5 ml Q6HRS PRN TOP AGITATION 07/10/20 18:30 07/11/20 07:18 DC Mirtazapine (Remeron) 7.5 mg QHS PO 07/13/20 21:00 07/14/20 18:47 DC 07/13/20 19:50 Divalproex Sodium (Depakote Sprinkles) 125 mg BID@0900,1700 PO 07/14/20 09:00 07/18/20 18:49 DC 07/18/20 17:29 Trazodone HCl (Desyrel) 50 mg PRN QHS PRN PO INSOMNIA 07/13/20 21:45 07/25/20 20:28 Mirtazapine (Remeron) 15 mg QHS PO 07/14/20 21:00 07/21/20 18:30 DC 07/20/20 20:19 Melatonin (Melatonin) 3 mg QHS PO 07/17/20 21:00 07/26/20 21:07 Divalproex Sodium (Depakote Sprinkles) 250 mg BID@0900,1700 PO 07/19/20 09:00 07/22/20 18:55 DC 07/22/20 16:32 Sertraline HCl (Zoloft) 25 mg DAILY PO 07/19/20 09:00 07/21/20 23:50 DC 07/21/20 08:36 Sertraline HCl (Zoloft) 50 mg DAILY PO 07/22/20 09:00 07/27/20 08:24 Cefdinir (Omnicef) 300 mg BID PO 07/21/20 21:00 07/27/20 08:23 Tamsulosin HCl (Flomax) 0.8 mg HS PO 07/21/20 17:45 07/21/20 18:39 DC Mirtazapine (Remeron) 7.5 mg QHS PO 07/21/20 21:00 07/23/20 18:01 DC 07/22/20 19:51 Tamsulosin HCl (Flomax) 0.8 mg HS PO 07/21/20 21:00 07/26/20 21:07 Dextrose 1,000 ml @ 100 mls/hr Q10H IV 07/23/20 17:30 07/26/20 21:14 Insulin Human Lispro (HumaLOG) 0-7 UNITS TIDWMEALS SQ 07/24/20 18:30 07/26/20 17:35 Mirtazapine (Remeron) 7.5 mg QHS PO 07/24/20 22:00 07/26/20 21:07 I have reviewed the current psychotropics carefully including drug interactions. Risk benefit ratio favors no change other than as noted in my dictated progress note. 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
[2020-07-27] MEDS ORDERED: ACET325T21 PO (09:34)
[2020-07-27] MEDS ORDERED: CEFD300C PO (09:35)
[2020-07-27] MEDS ORDERED: MAG-124 PO (09:37)
[2020-07-27] MEDS ORDERED: MELA3TAB43 PO (09:38)
[2020-07-27] MEDS ORDERED: MAGN24003 PO (09:38)
[2020-07-27] MEDS ORDERED: METH57CR17 TP (09:39)
[2020-07-27] MEDS ORDERED: SERT50TA PO (09:40)
[2020-07-27] MEDS ORDERED: MIRT7.5T8 PO (09:40)
[2020-07-27] MEDS ORDERED: TRAZ-120 PO (09:42)
--- NOTE | 2020-07-27 10:24 | NUR ---
During shift change in report nursing staff advised that patient blood pressure was low and unable to get a higher reading, patient assessed he did appear more jaundice his bue and ble were swollen per night nurse it may have been due to the IV infiltrated which was removed and fluids were d/c'd patient was still alert to self only and was at baseline extremities were warm pulses palpable he seemed stable so he was taken to breakfast and was given his meds PO crushed in small bite of pudding which he did well with however for breakfast waffles were being served which due to patient not having teeth we asked the kitchen for pureed to make it easier to eat. Patient blood pressure pills were held because despite patient being given something to eat and drink the blood pressure stayed soft 87/46 pulse 92 RR 14 and patient would not open eyes when staff talked with patient he was repositioned in chair and sternal rubbed where he made noises and opened eyes slightly but did not keep them open. I called Dr Catherine advised of situation also spoke with charge Nurse Clary and orders were given to transfer patient to [address] [place] [address] Medellin and advised him as well and was advised to speak to social work about having a conversation about hospice to the family. Patient diagnosis for transfer is acute on chronic liver failure with sepsis. Patient was transferred to [address] [place] [address] report given to Eden Chopra as well as controlled ativan and haldol cream given to [address] [place] [address] nurse Eden and counted 12 syringes. Patient also notified of transfer and reason and given nurse name and phone number to [address] [place] [address].
--- NOTE | 2020-07-27 10:38 | NUR ---
Transition Record was faxed to follow-up provider with the following elements: Reason for admission, procedures, tests, principal diagnosis, pending studies, patient instructions, 11/09 contact information for unit, phone number to obtain pending test results, plan for follow-up care, physician follow-up, advanced directive information, and medication list with dose, duration and instructions. This information was included in the following documents: History and physical, lab results, study results, progress notes, social work planning form, DC instruction form, patient visit summary, and medication reconciliation form. Date & time record faxed: 07/27/2020 [id number] Record faxed to: [address] [place] [id number] Record discussed with/ report given to:Eden Chopra
--- NOTE | 2020-07-27 22:24 | PDOC ---
Exam Note: Harshil Note: Please also refer to the separate dictated note~for this date of service dictated separately.~Patient seen individually. Discussed the patient with Nursing staff reviewed the chart.~Reviewed interim history and current functioning. Reviewed vital signs,~Labs/ Radiology~and current medications noted below. Continue current treatment with the changes noted in the dictated addendum note Assessment: Vital Signs/I&O: Vital Signs Date Time Temp Pulse Resp B/P (MAP) Pulse Ox O2 Delivery O2 Flow Rate FiO2 07/27/20 08:34 14 07/27/20 08:33 66 85/58 07/27/20 06:20 97.0 94 07/25/20 10:15 Room Air I & O 07/26/20 07/26/20 07/27/20 15:00 23:00 07:00 Intake Total 560 ml 720 ml Output Total 550 ml 410 ml Balance 560 ml 170 ml -410 ml Labs: Laboratory Tests Test 07/27/20 07:37 Glucose (Fingerstick) 71 mg/dL (70-99) Current Medications: Meds: Laboratory Tests Test 07/27/20 07:37 Glucose (Fingerstick) 71 mg/dL Current Medications Medications (Trade) Dose Ordered Sig/Michell Route PRN Reason Start Time Stop Time Status Last Admin Dose Admin Non-Formulary Medication (Non Formulary Item ([id number])) 1 ea PRN Q6HRS PRN TP AGITATION 07/10/20 17:15 07/27/20 10:06 DC 07/25/20 01:01 Acetaminophen (Tylenol) 650 mg PRN Q6HRS PRN PO MILD PAIN / TEMP > 100.3'F 07/10/20 18:30 07/27/20 10:06 DC 07/25/20 01:02 Multi-Ingredient Ointment (Analgesic [place]) 1 loyd PRN QID PRN TP MUSCLE PAIN 07/10/20 18:30 07/27/20 10:06 DC Al Hydroxide/Mg Hydroxide (Mylanta Plus Xs) 15 ml PRN AFTMEALHC PRN PO DYSPEPSIA 07/10/20 18:30 07/27/20 10:06 DC Magnesium Hydroxide (Milk Of Magnesia) 2,400 mg PRN QHS PRN PO CONSTIPATION 07/10/20 18:30 07/27/20 10:06 DC Allopurinol (Zyloprim) 100 mg BID PO 07/10/20 21:00 07/27/20 10:06 DC 07/27/20 08:24 Vitamin D (Vitamin D3) 1,000 unit DAILY PO 07/11/20 09:00 07/27/20 10:06 DC 07/27/20 08:23 Glucose (Insta-Glucose) 15 gm PRN Q15MIN PRN PO HYPOGLYCEMIA 07/10/20 18:30 07/27/20 10:06 DC Dextrose (Dextrose 50%-Water Syringe) 25 gm PRN Q15MIN PRN IV HYPOGLYCEMIA 07/10/20 18:30 07/27/20 10:06 DC Ferrous Sulfate (Feosol) 325 mg BIDWMEALS PO 07/11/20 08:00 07/27/20 10:06 DC 07/27/20 08:24 Finasteride (Proscar) 5 mg DAILY PO 07/11/20 09:00 07/27/20 10:06 DC 07/27/20 08:23 Gabapentin (Neurontin) 100 mg TID PO 07/10/20 21:00 07/27/20 10:06 DC 07/27/20 08:24 Insulin Glargine (Lantus Syringe) 30 unit HS SQ 07/10/20 21:00 07/27/20 10:06 DC 07/26/20 21:11 Insulin Human Lispro (HumaLOG) 5 units TIDWMEALS PRN SQ FSBS GREATER THAN 400 07/10/20 18:45 07/23/20 18:17 DC Lisinopril (Prinivil) 10 mg DAILY PO 07/11/20 09:00 07/27/20 10:06 DC 07/26/20 08:51 Metoprolol Tartrate (Lopressor) 25 mg DAILY PO 07/11/20 09:00 07/27/20 10:06 DC 07/26/20 08:50 Olanzapine (ZyPREXA) 5 mg BID PO 07/10/20 21:00 07/22/20 18:55 DC 07/22/20 09:00 Ondansetron HCl (Zofran Odt) 4 mg PRN Q8HRS PRN PO NAUSEA 07/10/20 18:30 07/27/20 10:06 DC Pantoprazole Sodium (Protonix) 40 mg BIDWMEALS PO 07/11/20 08:00 07/27/20 10:06 DC 07/27/20 08:24 Sucralfate (Carafate) 1 gm QIDACHS PO 07/10/20 21:00 07/27/20 10:06 DC 07/27/20 08:23 Tamsulosin HCl (Flomax) 0.4 mg HS PO 07/10/20 21:00 07/21/20 17:34 DC 07/20/20 20:19 Tramadol HCl (Ultram) 50 mg BID PO 07/10/20 21:00 07/27/20 10:06 DC 07/26/20 21:07 Lactobacillus Rhamnosus (Culturelle) 1 cap BID PO 07/10/20 21:00 07/27/20 10:06 DC 07/27/20 08:23 Glimepiride (Amaryl) 4 mg BIDWMEALS PO 07/11/20 08:00 07/27/20 10:06 DC 07/27/20 08:23 Non-Formulary Medication (Glucagon,Human Recombinant (Glucagon Emergency Kit)) 1 mg PRN PRN IM HYPOGLYCEMIA 07/10/20 18:30 UNV Lactulose (Lactulose) 20 gm TID PO 07/10/20 21:00 07/27/20 10:06 DC 07/27/20 08:23 Polyethylene Glycol (miraLAX) 17 gm DAILY PO 07/11/20 09:00 07/27/20 10:06 DC 07/27/20 08:22 Non-Formulary Medication ([Abh Topical Cream] ) 0.5 ml Q6HRS PRN TOP AGITATION 07/10/20 18:30 07/11/20 07:18 DC Mirtazapine (Remeron) 7.5 mg QHS PO 07/13/20 21:00 07/14/20 18:47 DC 07/13/20 19:50 Divalproex Sodium (Depakote Sprinkles) 125 mg BID@0900,1700 PO 07/14/20 09:00 07/18/20 18:49 DC 07/18/20 17:29 Trazodone HCl (Desyrel) 50 mg PRN QHS PRN PO INSOMNIA 07/13/20 21:45 07/27/20 10:06 DC 07/25/20 20:28 Mirtazapine (Remeron) 15 mg QHS PO 07/14/20 21:00 07/21/20 18:30 DC 07/20/20 20:19 Melatonin (Melatonin) 3 mg QHS PO 07/17/20 21:00 07/27/20 10:06 DC 07/26/20 21:07 Divalproex Sodium (Depakote Sprinkles) 250 mg BID@0900,1700 PO 07/19/20 09:00 07/22/20 18:55 DC 07/22/20 16:32 Sertraline HCl (Zoloft) 25 mg DAILY PO 07/19/20 09:00 07/21/20 23:50 DC 07/21/20 08:36 Sertraline HCl (Zoloft) 50 mg DAILY PO 07/22/20 09:00 07/27/20 10:06 DC 07/27/20 08:24 Cefdinir (Omnicef) 300 mg BID PO 07/21/20 21:00 07/27/20 10:06 DC 07/27/20 08:23 Tamsulosin HCl (Flomax) 0.8 mg HS PO 07/21/20 17:45 07/21/20 18:39 DC Mirtazapine (Remeron) 7.5 mg QHS PO 07/21/20 21:00 07/23/20 18:01 DC 07/22/20 19:51 Tamsulosin HCl (Flomax) 0.8 mg HS PO 07/21/20 21:00 07/27/20 10:06 DC 07/26/20 21:07 Dextrose 1,000 ml @ 100 mls/hr Q10H IV 07/23/20 17:30 07/27/20 10:06 DC 07/26/20 21:14 Insulin Human Lispro (HumaLOG) 0-7 UNITS TIDWMEALS SQ 07/24/20 18:30 07/27/20 10:06 DC 07/26/20 17:35 Mirtazapine (Remeron) 7.5 mg QHS PO 07/24/20 22:00 07/27/20 10:06 DC 07/26/20 21:07 I have reviewed the current psychotropics carefully including drug interactions. Risk benefit ratio favors no change other than as noted in my dictated progress note. Diagnosis: Problems: (1) Impulse control disorder, unspecified (2) Anxiety disorder, unspecified (3) Dementia, vascular, with depression (4) Dementia, vascular, with delusions (5) Dementia in Alzheimer's disease with depression (6) Dementia in Alzheimer's disease with delusions (7) Dementia of the Alzheimer's type with early onset with behavioral disturbance (8) Major neurocognitive disorder ASIM SPANGLER MD Jul 27, 2020 22:24
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
== END 2020-07-27 10:05 | disposition short-term general hospital (02) | DRG 56 ==
LOC: GEROPSY 14:50
PROVIDERS: ADMIT Psychiatry & Neurology Psychiatry; ATTEND Psychiatry & Neurology Psychiatry
DX: G30.9 Alzheimer's disease, unspecified (principal); F01.51 Vascular dementia, unspecified severity, with behavioral disturbance; E43 Unspecified severe protein-calorie malnutrition; I11.0 Hypertensive heart disease with heart failure; N17.9 Acute kidney failure, unspecified; E87.0 Hyperosmolality and hypernatremia; F02.81 Dementia in other diseases classified elsewhere, unspecified severity, with behavioral disturbance; K76.6 Portal hypertension; N13.8 Other obstructive and reflux uropathy; N39.0 Urinary tract infection, site not specified; F41.9 Anxiety disorder, unspecified; D69.6 Thrombocytopenia, unspecified; E03.9 Hypothyroidism, unspecified; E11.9 Type 2 diabetes mellitus without complications; E78.5 Hyperlipidemia, unspecified; E86.0 Dehydration; E88.09 Other disorders of plasma-protein metabolism, not elsewhere classified; F32.9 Major depressive disorder, single episode, unspecified; F63.9 Impulse disorder, unspecified; G47.00 Insomnia, unspecified; I25.10 Atherosclerotic heart disease of native coronary artery without angina pectoris; I34.0 Nonrheumatic mitral (valve) insufficiency; I50.9 Heart failure, unspecified; J44.9 Chronic obstructive pulmonary disease, unspecified; K70.30 Alcoholic cirrhosis of liver without ascites; I95.9 Hypotension, unspecified; M17.10 Unilateral primary osteoarthritis, unspecified knee; N40.1 Benign prostatic hyperplasia with lower urinary tract symptoms; K21.9 Gastro-esophageal reflux disease without esophagitis; G47.33 Obstructive sleep apnea (adult) (pediatric); Z79.4 Long term (current) use of insulin; Z79.899 Other long term (current) drug therapy; Z87.891 Personal history of nicotine dependence; Z91.81 History of falling; Z68.32 Body mass index [BMI] 32.0-32.9, adult
CPT/HCPCS: 36415; 71101; 80048; 80053; 80061; 80164; 81001; 82140; 82306; 82607; 82947; 83036; 83540; 83550; 83735; 84436; 84443; 84480; 85025; 85027; 86592; 87077; 87086; 87186; 92526; 93005; J1815; 92610; 97116; 97530

== ENCOUNTER 2020-07-27 10:08 | Inpatient (IN) | payer MEDICARE ==
[~2020-07-27] VITALS: Ht 172.7 cm; Wt 94.9 kg
[~2020-07-27 10:08] MED LIST: ABH TOP; ACET325T21 PO; ALLO100T PO; BIFI4CAP PO; BUDE0.5A11 NEB; CEFD300C PO; CHOL10004 PO; DEXT38GE2 PO; DEXT50DI3 IV; FERR325T14 PO; FINA5TAB4 PO; FORM20VI IH; GABA-585 PO; GLIM4TAB8 PO; GLUC1KIT IM; HALO5AMP2 IJ; INSU100V5 SQ; INSU100V8 SQ; LACT10SO26 PO; LISI10TA16 PO; MAG-124 PO; MAGN24003 PO; MELA3TAB43 PO; METH57CR17 TP; METO25TA4 PO; MIRT7.5T8 PO; OLAN5TAB9 PO; ONDA4TAB12 PO; PANT40TA6 PO; POLY2500 PO; SERT50TA PO; SUCR1TAB PO; TAMS0.4C97 PO; TRAM50TA PO; TRAZ-120 PO
[2020-07-27 10:34] VITALS: BP 82/44
--- NOTE | 2020-07-27 10:37 | NUR ---
MCKENZIE contacted Adriana at [facility] in [place] to let her know that pt was transferred to the medical floor this morning and the hospitalist is recommending hospice for pt. MCKENZIE discussed wanting to have pt discharged to them [facility] as pt is there and with pt being three hours away from home, it would be best to be around his loved ones during this time. Adriana wanted to check with her nurse to make sure they could take him on hospice since that has been recommended. Adriana and MCKENZIE discussed how behaviorally, pt is stable, as he has not been physical and actually requires a bit of assistance with cares and eating. MCKENZIE let Adriana know that staff is helping pt eat; without staff assistance, MCKENZIE is not sure that pt would even know what to do. Adriana let MCKENZIE know that she was going to be out in the community for a few hours, but would like to get an update later today if possible.
--- NOTE | 2020-07-27 10:42 | NUR ---
PATIENT IS 75 Y O MALE ARRIVED TO ROOM 125 VIA BRODA CHAIR FROM [facility] . ACCOMP BY STAFF. PATIENT TRANSFERRED TO BED WITH ASSIST X 3. PATIENT'S VITAL SIGNS ARE TAKEN AND BP IS 82/44, DR VIDAL NOTIFIED, ORDERS OBTAINED. PATIENT IS LETHARGIC, ABLE TO OPEN HIS EYES BUT UNABLE TO ANSWER ANY ORIENTATION QUESTIONS. BELONGINGS OBTAINED, PATIENT IS CURRENTLY IN A BED ASLEEP. WILL CONTINUE TO MONITOR.
[2020-07-27] MEDS ORDERED: IV NORMAL SALINE 1,000ML 1,000 ML IV SCH (11:00)
[2020-07-27 11:41] LABS: BASO % 1 % (0-3); EOS # 0.4 x10^3/uL (0.0-0.7); EOS % 6 % (0-3); HEMATOCRIT 32.7 % (39.0-53.0); LYMPH # 1.2 x10^3/uL (1.0-4.8); LYMPH % 17 % (24-48); MEAN CORPUSCULAR HEMOGLOBIN 33 pg (25-35); MEAN CORPUSCULAR HGB CONC 34 g/dL (31-37); MEAN CORPUSCULAR VOLUME 96 fL (79-100); MONO # 0.6 x10^3/uL (0.0-1.1); MONO % 9 % (0-9); NEUT # 4.7 x10^3uL (1.8-7.7); NEUT % 68 % (31-73); PLATELET COUNT 64 x10^3/uL (140-400); RED CELL DISTRIBUTION WIDTH 14.6 % (11.5-14.5); WHITE BLOOD COUNT 6.9 x10^3/uL (4.0-11.0)
--- NOTE | 2020-07-27 13:20 | RAD ---
EXAM: Chest, single view. HISTORY: Altered mental status. COMPARISON: None. FINDINGS: A frontal view of the chest is obtained. There is diffuse interstitial infiltrate likely hutchins perimposed on chronic interstitial changes. There are trace pleural effusions. There is a stable prom inent chronic silhouette. IMPRESSION: Diffuse interstitial infiltrate likely superimposed on chronic interstitial changes. Electronically signed by: Addie Lazar MD (07/27/2020 1:18 PM) [id number]
[2020-07-27 13:42] LABS: ALBUMIN 2.3 g/dL (3.4-5.0); ALBUMIN/GLOBULIN RATIO 0.6 (1.0-1.7); CALCIUM 8.5 mg/dL (8.5-10.1); CREATININE 1.9 mg/dL (0.7-1.3); GFR 34.6; POTASSIUM 4.1 mmol/L (3.5-5.1); TOTAL BILIRUBIN 0.9 mg/dL (0.2-1.0)
--- NOTE | 2020-07-27 14:08 | NUR ---
MCKENZIE contacted Adriana to see which hospice they use. MCKENZIE mentioned [facility] and [facility] is in this area and in [place]. Adriana said [facility] is the choice of hospice. MCKENZIE informed Adriana that MCKENZIE was educated that if a pt was on hospice services, Hospice would be able to take care of transport and any other services detrimental to pt care needs. Adriana reports not knowing about the transportation services in which both parties agreed "you learn something new every day". Adriana questioned MCKENZIE if a time for transport has been set and MCKENZIE was not sure as it was all still being worked on (e.g. orders, hospice orders, etc). All parties will continue to work on getting pt sent to [facility] in [place].
--- NOTE | 2020-07-27 14:13 | NUR ---
SW contacted pt to update her on what was being worked on. Pt will be getting hospice through [facility], which is who the facility uses per Adriana at [facility]. Pt was tearful and reports knowing that his liver was "like a rock". SW went over the fact that once [facility] has everything they need, they will call and be able to set him up at [facility]. SW encouraged pt to continue to get updates from nursing through the process.
[2020-07-27 14:43] VITALS: BP 97/55
[2020-07-27] MEDS ORDERED: OLANZapine IM 10 MG VIAL. IM PRN (15:45)
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
[2020-07-27 19:56] VITALS: BP 96/55
[2020-07-27] MEDS ORDERED: IV DEXTROSE 5% 1,000 ML IV SCH (20:30)
--- NOTE | 2020-07-28 09:20 | NUR ---
Discharge Patient was picked up per EMS apx 0740. Patient was assisted/overseen per EWA Sims. Patient was not assessed per this song writer. Patient discharge/EMS interaction overseen per EWA Sims. Whom reported patient alert, Dash in place and patent, no difficulties breathing, and no pain visualized.
== END 2020-07-28 07:40 | disposition hospice, inpatient (51) | DRG 441 ==
LOC: 1 SOUTH 10:08
PROVIDERS: ADMIT Internal Medicine; ATTEND Internal Medicine
DX: K72.90 Hepatic failure, unspecified without coma (principal); E43 Unspecified severe protein-calorie malnutrition; N17.9 Acute kidney failure, unspecified; K74.60 Unspecified cirrhosis of liver; E86.0 Dehydration; N18.9 Chronic kidney disease, unspecified; F22 Delusional disorders; Z68.31 Body mass index [BMI] 31.0-31.9, adult; I95.89 Other hypotension
CPT/HCPCS: 36415; 71045; 80053; 82947; 83605; 85025; 87040; 87086; J7030